=== PATIENT | female | born 1950 | race Caucasian/White ===

== ENCOUNTER 2018-12-09 11:48 | Outpatient (CLI) | payer MEDICARE ==
[2018-12-09 14:27] LABS: Estimated GFR-MDRD - POC Greater than 90
--- NOTE | 2018-12-09 15:39 | CT ---
CT ABDOMEN AND PELVIS WITH IV CONTRAST AND ORAL CONTRAST: HISTORY: Abdominal pain. Diverticulitis. FINDINGS: Lung bases are clear. Tiny cysts associated with the cortex of each kidney. No hydronephrosis or re nal stones are evident. Degenerative changes of the lumbar spine. Calcification in the arterial structures. No evidence of bowel obstruction or inflammation. Scattered diverticula arise from the colon without adjacent inflammation. Within the cecum is a small metallic object. Calcification below the bladde r may be related to prior surgery and calcification of the cervical remnant. IMPRESSION: 1. Diverticulosis. No evidence of diverticulitis. 2. Metallic object in the cecum (endoscopic camera?). 3. Atherosclerosis. POS: [facility]
== END 2018-12-09 11:49 | disposition home or self-care (01) ==
LOC: SCSCT 11:48
PROVIDERS: ATTEND Internal Medicine Gastroenterology
DX: R10.32 Left lower quadrant pain (principal); K57.92 Diverticulitis of intestine, part unspecified, without perforation or abscess without bleeding; D50.9 Iron deficiency anemia, unspecified; I70.90 Unspecified atherosclerosis; T18.4XXA Foreign body in colon, initial encounter
CPT/HCPCS: 74177; 82565

== ENCOUNTER 2018-12-12 16:49 | Outpatient (CLI) | payer MEDICARE ==
[2018-12-12 17:01] LABS: #Basophils 0.1 thou/uL (0.0-0.2); #Eosinphils 0.2 thou/uL (0.0-0.7); #Lymphocytes 1.7 thou/uL (1.20-3.40); #Monocytes 0.8 thou/uL (0.11-0.59); #Neutrophils 13.1 thou/uL (1.40-6.50); %Basophils 0.6 % (0.0-1.0); %Eosinophils 1.1 % (0.0-10.0); %Lymphocytes 10.8 % (21.0-51.0); %Monocytes 5.2 % (0.0-10.0); %Neutrophils 82.2 % (42.0-75.0); Hemoglobin 11.9 g/dL (12.0-16.0); Mean Corpuscular HGB CONC 31.5 g/dL (32.0-36.0); Mean Corpuscular Hemoglobin 28.3 pg (27.0-31.0); Mean Corpuscular Volume 89.9 fL (78.0-98.0); Platelet Count 410 thou/uL (130-400)
[2018-12-12 17:12] LABS: Anion Gap 13 mmol/L (10-20); BUN (Urea Nitrogen) 11 mg/dL (9.8-20.1); Calc. Creatinine Clearance 0 mL/min (70-130); Calcium 9.5 mg/dL (7.8-10.44); Carbon Dioxide 23 mmol/L (23-31); Chloride 109 mmol/L (98-107); Estimated GFR-MDRD 84; Glucose 114 mg/dL (80-115); Potassium 4.1 mmol/L (3.5-5.1); Sodium 141 mmol/L (136-145)
--- NOTE | 2018-12-12 17:50 | RAD ---
AP VIEW ABDOMEN: Date: 12/12/18 HISTORY: Radiopaque density within the colon. FINDINGS: AP view abdomen demonstrates a large amount of stool in the colon. The radiopaque density remains in the region of the cecum. No evidence of bowel obstruction or ileus seen. Dextroscoliosis seen L3 level. IMPRESSION: Large amount of stool remains in colon. Radiopaque camera seen in the region of the cecum. This is un changed since the previous exam from 12/09/18. POS: [facility]
[2018-12-12 18:32] LABS: Iron 59 ug/dL (50-170); Iron Binding Capacity, Total 336 mcg/dL (265-497)
== END 2018-12-12 16:50 | disposition home or self-care (01) ==
LOC: SCSRAD 16:49
PROVIDERS: ATTEND Internal Medicine Gastroenterology
DX: R93.5 Abnormal findings on diagnostic imaging of other abdominal regions, including retroperitoneum (principal); K57.92 Diverticulitis of intestine, part unspecified, without perforation or abscess without bleeding; R10.32 Left lower quadrant pain; D50.9 Iron deficiency anemia, unspecified; R19.5 Other fecal abnormalities
CPT/HCPCS: 36415; 74018; 80048; 82728; 83540; 83550; 85025; 87324; 87449; 87493

== ENCOUNTER 2018-12-16 07:46 | Outpatient (CLI) | payer MEDICARE ==
--- NOTE | 2018-12-16 09:30 | RAD ---
RADIOGRAPH ABDOMEN 1 VIEW: DATE: 12/16/2018. TIME: 8:06 a.m. HISTORY: A 68-year-old female with constipation. COMPARISON: 12/12/2018. FINDINGS: The bowel gas pattern is nonobstructive, with a large amount of gas scattered throughout nondilated s mall bowel loops and throughout nondilated colon, similar to prior study. The previously demonstrate d small, partially metallic, approximately 1 x 2 cm electronic device, was previously overlying the r ight side of the pelvic cavity. It is now more superior and midline in location, overlapping the L5- S1 junction. Again noted is the dextroscoliosis of the lumbar spine, associated with severe degenera tive disk disease in the mid and lower lumbar spine. IMPRESSION: 1. Interval movement of the swallowed small foreign body to a different position, now at midline. F rom this KUB alone, it cannot be determined whether this is in the small intestine or colon. However , based on the fact that it was in the cecum on the CT of 12/09/2018, it is unlikely that it has moved back into the small intestine. Therefore, perhaps it is in the sigmoid colon. A CT of the abdomen a nd pelvis would be definitive. 2. Lumbar spondylosis. POS: [facility]
== END 2018-12-16 07:47 | disposition home or self-care (01) ==
LOC: BICRAD 07:46
PROVIDERS: ATTEND Internal Medicine Gastroenterology
DX: K59.00 Constipation, unspecified (principal); T18.9XXA Foreign body of alimentary tract, part unspecified, initial encounter; M47.816 Spondylosis without myelopathy or radiculopathy, lumbar region
CPT/HCPCS: 74018

== ENCOUNTER 2018-12-22 15:11 | Observation (INO) | payer MEDICARE ==
[2018-12-22 16:28] LABS: #Eosinphils 0.1 thou/uL (0.0-0.7); #Lymphocytes 0.8 thou/uL (1.20-3.40); #Monocytes 0.7 thou/uL (0.11-0.59); #Neutrophils 10.2 thou/uL (1.40-6.50); %Basophils 0.2 % (0.0-1.0); %Eosinophils 0.5 % (0.0-10.0); %Lymphocytes 6.4 % (21.0-51.0); %Monocytes 5.8 % (0.0-10.0); %Neutrophils 87.2 % (42.0-75.0); Hemoglobin 12.4 g/dL (12.0-16.0); Mean Corpuscular HGB CONC 31.6 g/dL (32.0-36.0); Mean Corpuscular Hemoglobin 29.2 pg (27.0-31.0); Mean Corpuscular Volume 92.5 fL (78.0-98.0); Mean Platelet Volume 7.3 fL (7.4-10.4); Platelet Count 409 thou/uL (130-400); RBC Distribution Width 13.6 % (11.5-14.5); Red Blood Cell (RBC) Count 4.24 mill/uL (4.20-5.40); White Blood Cell (WBC) Count 11.8 thou/uL (4.8-10.8)
[2018-12-22] MEDS ORDERED: Morphine 4 MG/ML VIAL ONE ×2 (16:42→18:17)
[2018-12-22] MEDS ORDERED: Ondansetron PF 4 MG/2 ML Vial ONE (16:43)
[2018-12-22 16:47] LABS: ALT (SGPT) Less than 7 U/L (8-55); AST (SGOT) 15 U/L (5-34); Alkaline Phosphatase 98 U/L (40-150); Anion Gap 15 mmol/L (10-20); BUN (Urea Nitrogen) 14 mg/dL (9.8-20.1); Bilirubin, Total 0.4 mg/dL (0.2-1.2); Calc. Creatinine Clearance 0 mL/min (70-130); Calcium 9.5 mg/dL (7.8-10.44); Carbon Dioxide 23 mmol/L (23-31); Chloride 105 mmol/L (98-107); Estimated GFR-MDRD 86; Globulin 2.8 g/dL (2.4-3.5); Glucose 143 mg/dL (80-115); Lipase 9 U/L (8-78); Potassium 3.8 mmol/L (3.5-5.1); Protein, Total 6.8 g/dL (6.0-8.3); Sodium 139 mmol/L (136-145)
--- NOTE | 2018-12-22 17:59 | CT ---
LIMITED CT EXAMINATION: Date: HISTORY: Abdominal pain. Patient had a recent Gastrografin enema. FINDINGS: The optimization analyst film shows a large amount of dense Gastrografin throughout the colon. This was discussed wi amy Olsen. Decision was made to hold off on performing the CT until some of the Gastrografin had c leared. IMPRESSION: Large amount of dense Gastrografin within the colon. Exam was deferred until some of this cleared. POS: [facility]
[2018-12-22] MEDS ORDERED: Promethazine HCl 25 MG/ML VIAL ONE (18:17)
[2018-12-22] MEDS ORDERED: Ondansetron ODT 4 MG TAB PO PRN (22:10)
[2018-12-22] MEDS ORDERED: Ondansetron PF 4 MG/2 ML Vial IVP PRN (22:10)
[2018-12-22] MEDS ORDERED: Acetaminophen 325 MG TAB PO PRN (22:10)
[2018-12-22 22:11] VITALS: BMI 19.7
[2018-12-22] MEDS: Lactated Ringer's 1,000 ML IV SCH (22:40)
--- NOTE | 2018-12-23 00:49 | PDOC.FPRHP ---
- History of Present Illness Chief Complaint: abdominal pain History of Present Illness: 68 yo F with PMH hypothyroid, CAD, DM, chronic abdominal pain, nephrolithiasis, depression, cardiac ablation, chronic back pain presents with abdominal pain. GI is Dr. Green. Patient has long history of abdominal pain and GI issues that pt believes GI is due to constipation. Notes 1 year ago was initially evaluated after having significant decreased appetite, weight loss. Multiple studies, imaging has been done. Stool is typically "spaghetti" shaped. Patient had endoscopic camera placed 11/23 which has not passed. Patient gets significant pain and discomfort with bowel prep. Had colonoscopy this am, seems that ileocecal junction has stricture and scope unable to be advanced. Patient had a barium swallow afterward along with [address] Green's office. She had significant abdominal pain in ED, requiring 8mg morphine to control. She now says pain is now 1/10. Reports N/V during colonscopy and throughout day. ED doc said he spoke with Dr. Green who had no recommendations. 07/28/2018 patient was hospitalized at [facility] for 8 days for diverticulitis. After hospitalization patient developed and was treated for c diff. Takes tramadol prn back pain. ED Course: phenergan, zofran, 1L, 8 mg morphine total - Allergies/Adverse Reactions Allergies Allergy/AdvReac Type Severity Reaction Status Date / Time meperidine [From Demerol] Allergy Hives Verified 10/08/16 10:14 - Home Medications Medication Instructions Recorded Confirmed Type Acetaminophen/Diphenhydramine 2 each PO HS 10/08/16 12/22/18 History [Tylenol Pm Ex-Strength Caplet] Ascorbic Acid [C-1000] 1,000 mg PO DAILY 10/08/16 12/22/18 History Aspirin [Low Dose Aspirin EC] 81 mg PO HS 10/08/16 12/22/18 History Atorvastatin Calcium 20 mg PO HS 10/08/16 12/22/18 History Biotin 1 tab PO DAILY 10/08/16 12/22/18 History Estradiol [Vagifem] 10 mcg VAG ASDIR 10/08/16 12/22/18 History Levothyroxine Sodium [Synthroid] 75 mcg PO HS 10/08/16 12/22/18 History Metoprolol Succinate [Toprol XL] 25 mg PO HS 10/08/16 12/22/18 History Potassium Citrate [Potassium 10 meq PO BID 10/08/16 12/22/18 History Citrate ER] Ramipril 10 mg PO DAILY 10/08/16 12/22/18 History Vit A/Vit C/Vit E/Zinc/Copper 1 cap PO DAILY 10/08/16 12/22/18 History [ICaps AREDS Softgel] Vit C/Vit E AC/Lut/Copper/Zinc 1 each PO BID 10/08/16 12/22/18 History [Preservision Lutein Softgel] metFORMIN HCl 500 mg PO BID-WM 10/08/16 12/22/18 History sitaGLIPtin Phosphate [Januvia] 100 mg PO QAM 10/08/16 12/22/18 History traMADol HCl [Tramadol HCl] 100 mg PO DAILY 10/08/16 12/22/18 History tiZANidine HCl [Tizanidine HCl] 4 mg PO Q8H PRN #60 capsule 10/09/16 12/22/18 Rx Amlodipine [Norvasc] 5 mg PO HS 12/22/18 12/22/18 History Buprenorphine HCl [Belbuca] 75 film PO DAILY PRN 12/22/18 12/22/18 History DULoxetine [Cymbalta] 30 mg PO QAM 12/22/18 12/22/18 History Methenam/M.blue/Salicyl/Hyoscy 1 tablet PO BID 12/22/18 12/22/18 History [Hyophen] Saccharomyces boulardii [Florastor] 250 mg PO HS 12/22/18 12/22/18 History Zonisamide 50 cap PO BID 12/22/18 12/22/18 History - History PMHx: nephrolithiasis, depression, CAD, hypothyroid, DM, chronic back pain, HTN PSHx: laminectomy, cardiac ablation, thyroidectomy, tonsillectomy, bladder suspension with multiple sx to remove mesh, appendectomy, hysterectomy FHx: dad- lung cancer, stomach cancer, DM. Mother-DM. Social: No tobacco, alcohol, or drug use. Lives at home with . - Review of Systems General: denies: fever/chills, fatigue ENT: denies: nasal congestion, rhinorrhea Respiratory: denies: cough, shortness of breath Cardiovascular: denies: chest pain, palpitation, edema Gastrointestinal: reports: nausea, vomiting, diarrhea, abdominal pain. denies: GI bleeding Genitourinary: denies: incontinence, dysuria Skin: denies: rashes, lesions Musculoskeletal: reports: pain. denies: swelling Neurological: denies: numbness, syncope Psychological: reports: depression. denies: anxiety - Vital signs BP: 170/72 HR: 99 RR: 18 Tmax: 97.5 Pox: 99% on RA Wt: 52 kg - Physical Exam Constitutional: NAD, awake, alert and oriented HEENT: normocephalic and atraumatic, grossly normal vision, grossly normal hearing, other (MM dry) Heart: RRR, pulses present, no edema Lungs: CTAB, no respiratory distress Abdomen: soft, other (decreased bowel sounds, mildly TTP RLQ) Neurological: no focal deficit Skin: no rash/lesions Heme/Lymphatic: no unusual bruising or bleeding Psychiatric: normal mood and affect FMR H&P: Results - Labs Result Diagrams: 12/22/18 15:57 12/22/18 15:57 Lab results: WBC 11.8 thou/uL (4.8-10.8) H 12/22/18 15:57 Hgb 12.4 g/dL (12.0-16.0) 12/22/18 15:57 Hct 39.2 % (36.0-47.0) 12/22/18 15:57 MCV 92.5 fL (78.0-98.0) 12/22/18 15:57 Plt Count 409 thou/uL (130-400) H 12/22/18 15:57 Neutrophils % 87.2 % (42.0-75.0) H 12/22/18 15:57 Sodium 139 mmol/L (136-145) 12/22/18 15:57 Potassium 3.8 mmol/L (3.5-5.1) 12/22/18 15:57 Chloride 105 mmol/L (98-107) 12/22/18 15:57 Carbon Dioxide 23 mmol/L (23-31) 12/22/18 15:57 BUN 14 mg/dL (9.8-20.1) 12/22/18 15:57 Creatinine 0.68 mg/dL (0.6-1.1) 12/22/18 15:57 Glucose 143 mg/dL (80-115) H 12/22/18 15:57 Lactic Acid 1.1 mmol/L (0.5-2.2) 12/22/18 16:52 Calcium 9.5 mg/dL (7.8-10.44) 12/22/18 15:57 Total Bilirubin 0.4 mg/dL (0.2-1.2) 12/22/18 15:57 AST 15 U/L (5-34) 12/22/18 15:57 ALT Less than 7 U/L (8-55) L 12/22/18 15:57 Alkaline Phosphatase 98 U/L (40-150) 12/22/18 15:57 Serum Total Protein 6.8 g/dL (6.0-8.3) 12/22/18 15:57 Albumin 4.0 g/dL (3.4-4.8) 12/22/18 15:57 Lipase 9 U/L (8-78) 12/22/18 15:57 FMR H&P: A/P - Problem List (1) Intractable abdominal pain Current Visit: Yes Status: Acute Code(s): R10.9 - UNSPECIFIED ABDOMINAL PAIN (2) Mild dehydration Current Visit: Yes Status: Acute Code(s): E86.0 - DEHYDRATION (3) Diabetes Current Visit: Yes Status: Acute Code(s): E11.9 - TYPE 2 DIABETES MELLITUS WITHOUT COMPLICATIONS (4) CAD (coronary artery disease) Current Visit: Yes Status: Acute Code(s): I25.10 - ATHSCL HEART DISEASE OF [place] CORONARY ARTERY W/O ANG PCTRS (5) HTN (hypertension) Current Visit: Yes Status: Acute Code(s): I10 - ESSENTIAL (PRIMARY) HYPERTENSION (6) Hypothyroid Current Visit: Yes Status: Acute Code(s): E03.9 - HYPOTHYROIDISM, UNSPECIFIED (7) Depression Current Visit: Yes Status: Acute Code(s): F32.9 - MAJOR DEPRESSIVE DISORDER , SINGLE EPISODE, UNSPECIFIED - Plan Intractable abdominal pain - improved after 8mg morphine in ED, pain now well controlled, tylenol and zofran prn for now - WBC 11.8. Pain associated with bowel prep, colonoscopy, barium swallow and 2 enemas done today. - Having watery BMs now - endoscopic camera inserted 11/23 still has not passed - Dr. Green is GI doctor. Will discuss case in ED with them for further recommendations - recheck am labs - CL for now, NPO @ midnight Mild dehydration - decreased PO intake and bowel prep resulting in GI losses - s/p 1L in ED. Continue LR @ 90 maintenance T2DM - on metformin at home, pt unsure of dose - SSI, accuchecks for now CAD - pending med rec HTN - s/p ablation for elevated BP per patient - pending med rec Hypothyroid - pending med rec Depression - pending med rec Diet: CL, NPO @ midnight Ppx: Lovenox Dispo: admit to medical floor for observation FMR H&P: Upper Level - Pertinent history 68 yr old female with intractable abdominal pain according to ED physician. Had colonoscopy toay but unable to complete due to narrowing of colon but was not appreciated on barium enema. Patient report greater than 1 yr struggle with abdominal pain that is being worked up outpatient by Dr. Ana Green. Today after her colonooscoy, pain so severe she came to ER and got morphine which helped. At time of exam, patient's pain significantly improved. She reports stool caliber changes and pencil like stools. - Pertinent findings gen: no acute distress heart: RRR, 2/6 systolic murmur Lungs: CTAB, no W/R/R Abd: hypoactive BS, nontender to palpation no hepatosplenomegaly Ext: No edema in BLE - Plan Date/Time: 12/23/18 0049 I, [Nina Sidhu], have evaluated this patient and agree with findings/plan as outlined by video editing internship resident. Pertinent changes/additions are listed here. 68 yr old female with chronic abdominal pain intractable abdominal pain -improved with morphine -chronic and has been worked up outpatient -recommend touching base with Dr. Green in regards to what to do further -apparently still has a pill camera for over a month -normal barium enema today -consider completing CT in AM if still indicated mild dehydration -will give gentle IV fluids overnight -NPO at midnight HTN -home meds when obtained Hypothyroidism -home meds PCP: Dr. Cabrales in [place] diet: NPO after midnight
[2018-12-23] MEDS ORDERED: tiZANidine HCl 4 MG TAB PO PRN (01:57)
[2018-12-23] MEDS ORDERED: Levothyroxine Sodium 75 MCG TAB PO SCH (06:00)
--- NOTE | 2018-12-23 07:07 | PDOC.FM ---
- Subjective Subjective: Reports resolution of abdominal pain. Reports multiple episodes of incontinence to stool which is very atypical for her. Nausea is controlled with Zofran. No other questions or complaints this morning. Has appt with Dr Green next week. - Objective MAR Reviewed: Yes Vital Signs & Weight: Vital Signs (12 hours) Temp Pulse Resp BP Pulse Ox 12/23/18 04:00 97.9 F 75 16 143/65 H 98 12/23/18 00:00 97.8 F 82 16 116/62 95 Weight Weight 52.191 kg I&O: 12/22/18 12/23/18 12/24/18 06:59 06:59 06:59 Intake Total 691 Balance 691 Result Diagrams: 12/23/18 08:35 12/23/18 08:35 Phys Exam - Physical Examination Constitutional: NAD Dry MM Neck: supple Respiratory: no wheezing, clear to auscultation bilateral Cardiovascular: RRR 2/6 Systolic murmur Gastrointestinal: soft TTP RLQ Musculoskeletal: no edema Neurological: non-focal Psychiatric: normal affect, A&O x 3 Skin: normal turgor Dx/Plan (1) Intractable abdominal pain Code(s): R10.9 - UNSPECIFIED ABDOMINAL PAIN Status: Acute (2) Mild dehydration Code(s): E86.0 - DEHYDRATION Status: Acute (3) CAD (coronary artery disease) Code(s): I25.10 - ATHSCL HEART DISEASE OF [place] CORONARY ARTERY W/O ANG PCTRS Status: Chronic (4) Depression Code(s): F32.9 - MAJOR DEPRESSIVE DISORDER, SINGLE EPISODE, UNSPECIFIED Status : Chronic (5) Diabetes Code(s): E11.9 - TYPE 2 DIABETES MELLITUS WITHOUT COMPLICATIONS Status: Chronic (6) HTN (hypertension) Code(s): I10 - ESSENTIAL (PRIMARY) HYPERTENSION Status: Chronic (7) Hypothyroid Code(s): E03.9 - HYPOTHYROIDISM, UNSPECIFIED Status: Chronic - Plan Plan: Intractable abdominal pain, resolved - Initial leukocytosis 11.8. Sees Dr Green, GI outpt. Colonoscopy 12/21 unable to complete due to stricture, barium swallow no abnormalities. 2 enemas. Endoscopic camera 11/23 has not passed - KUB shows camera in right colon - s/p 8mg morphine in ED with improvement - Tylenol, zofran PRN - Spoke with Dr Green this AM, she has f/u with her in one week fo rKUB Diarrhea - likely 2/2 to Gastrograffin - Hx of Cdiff early Oct. C diff neg 2 week ago after course of antibiotics. - Will check C diff toxin, no PCR - Dr Green recommended Imodium for >4 loose BM's per day Mild dehydration - s/p 1L in ED - LR @ 90 - Encourage PO intake T2DM - Continue home metformin - Accuchecks ACHS - SSI and hypoglycemic protocol CAD - Continue home meds HTN - s/p ablation for elevated BP per patient - Continue home meds Hypothyroid - Continue home Synthroid Depression - Continue home meds Hx of Cdiff - As above Code Status: FULL DVT ppx: Lovenox PCP: Dr Cabrales Addendum - Attending - Attending Attestation Date/Time: 12/23/18 [id number] I personally evaluated the patient and discussed the management with Dr. Macario I agree with the History, Examination, Assessment and Plan documented above with any addition or exceptions noted below.Case discussed with patient established GI and appreciate recommendation.
[2018-12-23] MEDS ORDERED: metFORMIN 500 MG TAB PO SCH (08:00)
[2018-12-23] MEDS ORDERED: [UNRECOGNIZED DRUG - OTHER] PO SCH (09:00)
[2018-12-23] MEDS ORDERED: DULoxetine 30 MG CAP PO SCH (09:00)
[2018-12-23] MEDS ORDERED: Potassium Citrate 10 MEQ TAB PO SCH (09:00)
[2018-12-23] MEDS ORDERED: Zonisamide 25 MG CAP PO SCH (09:00)
[2018-12-23] MEDS ORDERED: traMADol HCl 50 MG TAB PO SCH (09:00)
[2018-12-23] MEDS ORDERED: Alogliptin 6.25 MG TAB PO SCH (09:00)
[2018-12-23] MEDS ORDERED: Enoxaparin Sodium 40 MG/0.4 ML SYRINGE SC SCH (09:00)
[2018-12-23] MEDS ORDERED: Ramipril 5 MG CAP PO SCH (09:00)
[2018-12-23] MEDS ORDERED: Ascorbic Acid 500 mg Chewable Tablet PO SCH (09:00)
[2018-12-23 09:14] LABS: #Basophils 0.1 thou/uL (0.0-0.2); #Eosinphils 0.2 thou/uL (0.0-0.7); #Lymphocytes 1.1 thou/uL (1.20-3.40); #Monocytes 0.6 thou/uL (0.11-0.59); #Neutrophils 4.7 thou/uL (1.40-6.50); %Basophils 0.8 % (0.0-1.0); %Eosinophils 2.3 % (0.0-10.0); %Lymphocytes 16.8 % (21.0-51.0); %Monocytes 9.5 % (0.0-10.0); %Neutrophils 70.6 % (42.0-75.0); Mean Corpuscular HGB CONC 32.1 g/dL (32.0-36.0); Mean Corpuscular Hemoglobin 29.5 pg (27.0-31.0); Mean Corpuscular Volume 92.2 fL (78.0-98.0); Mean Platelet Volume 7.3 fL (7.4-10.4); Platelet Count 307 thou/uL (130-400); RBC Distribution Width 13.6 % (11.5-14.5); Red Blood Cell (RBC) Count 3.39 mill/uL (4.20-5.40); White Blood Cell (WBC) Count 6.7 thou/uL (4.8-10.8)
[2018-12-23 09:20] LABS: Anion Gap 12 mmol/L (10-20); BUN (Urea Nitrogen) 13 mg/dL (9.8-20.1); Calc. Creatinine Clearance 73 mL/min (70-130); Calcium 8.6 mg/dL (7.8-10.44); Carbon Dioxide 25 mmol/L (23-31); Chloride 110 mmol/L (98-107); Estimated GFR-MDRD Greater than 90; Glucose 102 mg/dL (80-115); Potassium 3.5 mmol/L (3.5-5.1); Sodium 143 mmol/L (136-145)
[2018-12-23] MEDS: Lactated Ringer's 1,000 ML IV SCH (09:22)
[2018-12-23 11:49] VITALS: BP 135/70; TEMP 98.2
[2018-12-23] MEDS ORDERED: Loperamide HCl 2 MG CAP PO SCH (13:30)
[2018-12-23] MEDS ORDERED: Lactated Ringer's 500 ML IV SCH (13:45)
[2018-12-23] MEDS ORDERED: Saccharomyces boulardii 250 MG CAP PO SCH (21:00)
[2018-12-23] MEDS ORDERED: Aspirin 81 mg Enteric Coated Tablet PO SCH (21:00)
[2018-12-23] MEDS ORDERED: Acetaminophen 500 MG TAB PO SCH ×2 (21:00)
[2018-12-23] MEDS ORDERED: diphenhydrAMINE 25 MG CAP PO SCH (21:00)
[2018-12-23] MEDS ORDERED: Atorvastatin Calcium 20 MG TAB PO SCH (21:00)
[2018-12-23] MEDS ORDERED: Amlodipine 5 MG TAB PO SCH (21:00)
--- NOTE | 2018-12-27 09:20 | DIS ---
DATE OF ADMISSION: 12/22/2018 DATE OF DISCHARGE: 12/23/2018 RESIDENT: Kaley Macario MD, PGY-1. ADMITTING ATTENDING: Manny Cardoso MD DISCHARGE ATTENDING: Manny Cardoso MD CONSULTS: None. PROCEDURES: Limited followup study CT, large amount of dense Gastrografin within the colon, exam was deferred until some of this was cleared. The exam was ultimately canceled. PRIMARY DIAGNOSES: 1. Intractable abdominal pain, resolved. 2. Diarrhea. SECONDARY DIAGNOSES: 1. Mild dehydration. 2. Type 2 diabetes. 3. Coronary artery disease. 4. Hypertension. 5. Hypothyroidism. 6. Depression. 7. History of Clostridium difficile. DISCHARGE MEDICATIONS: 1. Amlodipine 5 mg at bedtime. 2. Ascorbic acid 1000 mg daily. 3. Aspirin 81 mg at bedtime. 4. Atorvastatin 20 mg at bedtime. 5. Duloxetine 30 mg q.a.m. 6. Levothyroxine 75 mcg at bedtime. 7. Metformin 500 mg b.i.d. 8. Hyophen 1 tablet b.i.d. 9. Metoprolol succinate 25 mg at bedtime. 10. Zofran 4 mg q.6 hours p.r.n. 11. Potassium citrate 10 mEq b.i.d. 12. Ramipril 10 mg daily. 13. Florastor 250 mg at bedtime. 14. Januvia 100 mg q.a.m. 15. Tizanidine 4 mg q.8 hours p.r.n. 16. Tramadol 100 mg daily. 17. Zonisamide 50 mg b.i.d. 18. Biotin 1 tab daily. 19. Belbuca 75 mcg daily. 20. Estradiol 10 mcg daily. 21. Multivitamin one b.i.d. DISCONTINUED MEDICATIONS: None. HISTORY OF PRESENT ILLNESS/HOSPITAL COURSE: Ms. Shen is a very pleasant 68-year-old female, who presented with intractable abdominal pain. She has had a long history of chronic abdominal pain that Dr. Green, creative technologist, has been following her as she has a history of decreased appetite, weight loss, ( spaghetti) shaped stools, multiple studies have been done. Last month, she had an EGD as well as having an endoscopic camera capsule placed on November 23. She has not yet had passage of the capsule, it was seen on x-ray by her GI doctor. Therefore, her bowel prep and colonoscopy was performed yesterday that showed ileocecal junction stricture and the scope was then able to be advanced to gain access to the capsule. Afterwards, the patient was given a Gastrografin barium swallow in hopes that the diarrhea would wash out the capsule, as well as two enemas. She, in the ED, received 1 L lactated Ringer's, Phenergan, Zofran, and 8 mg of morphine. Her pain was well controlled afterwards. Dr. Green was notified in the morning of discharge and recommended Imodium p.r.n. for greater than 4 loose stools a day, bland diet, and dilated Gatorade, as well as prescription for home Zofran. She is scheduled in clinic next week to get a KUB to evaluate where the camera is at that point. The patient does have a history of C diff in the beginning of October 2018. The patient reports that she had antibiotics, finished the course 2 weeks ago. At that time, she had C diff study that showed that she was negative for acute C diff, but did have a history of it. Her stools were solid prior to bowel prep for colonoscopy yesterday. Her stools were followed prior to bowel prep for colonoscopy, the day prior to admission. C diff toxin was obtained to rule out active C diff, although this is very unlikely. This is why Imodium was recommended by Dr. Green, because Gastrografin is the most likely source of her diarrhea. She is otherwise hemodynamically stable. Mild dehydration. She received 1 L of normal saline in the ED and LR was continued maintenance overnight. She was encouraged to drink large amount of fluids including diluted Gatorade for her ongoing GI losses. Her chronic medical conditions of type 2 diabetes, CAD, hypertension, hypothyroidism and depression were stable on her home medications. DISPOSITION: Stable. DISCHARGE INSTRUCTIONS: 1. Location: Home. 2. Diet: Consistent carbohydrate. 3. Activity: No Restrictions 4. Follow up with Dr Cabrales within 1 week Job ID: [id number] MTDD
== END 2018-12-23 16:04 | disposition home or self-care (01) ==
LOC: ERS 15:11 → T4-B 18:06
PROVIDERS: ADMIT Family Medicine; ATTEND Family Medicine
DX: R10.9 Unspecified abdominal pain (principal); R19.7 Diarrhea, unspecified; E86.0 Dehydration; E11.9 Type 2 diabetes mellitus without complications; I25.10 Atherosclerotic heart disease of native coronary artery without angina pectoris; I10 Essential (primary) hypertension; F32.9 Major depressive disorder, single episode, unspecified; G89.29 Other chronic pain; M54.9 Dorsalgia, unspecified; K56.609 Unspecified intestinal obstruction, unspecified as to partial versus complete obstruction; E03.9 Hypothyroidism, unspecified; Z79.82 Long term (current) use of aspirin; Z79.84 Long term (current) use of oral hypoglycemic drugs; Z79.899 Other long term (current) drug therapy; Z98.890 Other specified postprocedural states; Z88.5 Allergy status to narcotic agent
CPT/HCPCS: 74270; 76380; 80048; 80053; 82962 ×2; 83605; 83690; 85025 ×2; 87324; 87449; 96361 ×3; 96365; 96372; 96375; 96376; 99285; G0378 ×2; 36415; 36416; J1650; J2270; J2405; J2550

== ENCOUNTER 2018-12-29 08:14 | Outpatient (CLI) | payer MEDICARE ==
--- NOTE | 2018-12-29 09:18 | RAD ---
FRONTAL VIEW ABDOMEN: KUB: INDICATIONS: Foreign body of colon. Followup. FINDINGS: There is an abnormal radiopaque density projecting at the left lower quadrant. Enteric contrast is s een within bowel. IMPRESSION: Persistent radiopaque density, which projects at the left lower quadrant. POS: [facility]
== END 2018-12-29 08:15 | disposition home or self-care (01) ==
LOC: BICRAD 08:14
PROVIDERS: ATTEND Internal Medicine Gastroenterology
DX: T14.8XXD Other injury of unspecified body region, subsequent encounter (principal)
CPT/HCPCS: 74018

== ENCOUNTER 2019-01-06 09:23 | Outpatient (CLI) | payer MEDICARE ==
--- NOTE | 2019-01-06 11:12 | RAD ---
ABDOMEN 1 VIEW: HISTORY: Foreign body. COMPARISON: Radiograph of 12/29/2018. FINDINGS: The radiopaque foreign object now projects over the right lower hemipelvis. Moderate degenerative ch anges of the lumbar spine with moderate dextroscoliosis. IMPRESSION: Radiopaque foreign object projects over the right lower hemipelvis. POS: [facility]
== END 2019-01-06 09:24 | disposition home or self-care (01) ==
LOC: BICRAD 09:23
PROVIDERS: ATTEND Physician Assistant Medical
DX: T18.4XXS Foreign body in colon, sequela (principal); R10.84 Generalized abdominal pain; A04.72 Enterocolitis due to Clostridium difficile, not specified as recurrent
CPT/HCPCS: 74018

== ENCOUNTER 2019-01-29 15:58 | Inpatient (IN) | payer MEDICARE ==
[~2019-01-29 15:58] MED LIST: ISOVUE-370 76%-LOCM 1 ML ONE
[2019-01-29] MEDS ORDERED: Morphine 4 MG/ML VIAL ONE ×2 (16:35→18:44)
[2019-01-29] MEDS ORDERED: Ondansetron PF 4 MG/2 ML Vial ONE ×2 (16:35→18:30)
[2019-01-29 17:03] LABS: #Basophils 0.1 thou/uL (0.0-0.2); #Eosinphils 0.1 thou/uL (0.0-0.7); #Lymphocytes 1.4 thou/uL (1.20-3.40); #Monocytes 0.7 thou/uL (0.11-0.59); #Neutrophils 9.3 thou/uL (1.40-6.50); %Basophils 0.8 % (0.0-1.0); %Eosinophils 1.1 % (0.0-10.0); %Lymphocytes 11.8 % (21.0-51.0); %Monocytes 6.4 % (0.0-10.0); Hemoglobin 12.6 g/dL (12.0-16.0); Mean Corpuscular HGB CONC 31.9 g/dL (32.0-36.0); Mean Corpuscular Hemoglobin 29.3 pg (27.0-31.0); Mean Corpuscular Volume 91.8 fL (78.0-98.0); Mean Platelet Volume 7.4 fL (7.4-10.4); Platelet Count 395 thou/uL (130-400); RBC Distribution Width 13.6 % (11.5-14.5); White Blood Cell (WBC) Count 11.6 thou/uL (4.8-10.8)
[2019-01-29 17:20] LABS: ALT (SGPT) 9 U/L (8-55); AST (SGOT) 17 U/L (5-34); Albumin 4.1 g/dL (3.4-4.8); Alkaline Phosphatase 109 U/L (40-150); Anion Gap 14 mmol/L (10-20); BUN (Urea Nitrogen) 11 mg/dL (9.8-20.1); Bilirubin, Total 0.5 mg/dL (0.2-1.2); Calc. Creatinine Clearance 0 mL/min (70-130); Calcium 9.8 mg/dL (7.8-10.44); Carbon Dioxide 26 mmol/L (23-31); Chloride 104 mmol/L (98-107); Estimated GFR-MDRD Greater than 90; Globulin 3.1 g/dL (2.4-3.5); Glucose 125 mg/dL (80-115); Lipase 8 U/L (8-78); Potassium 3.9 mmol/L (3.5-5.1); Protein, Total 7.2 g/dL (6.0-8.3); Sodium 140 mmol/L (136-145)
--- NOTE | 2019-01-29 18:21 | CT ---
CT ABDOMEN AND PELVIS WITH CONTRAST: 01/29/2019 HISTORY: Bowel distention and pain. Assess for bowel obstruction. COMPARISON: 12/09/2018 TECHNIQUE: Axial CT imaging is obtained at 5 mm intervals, from the lung bases through the pubic symphysis, with intravenous contrast. Coronal reformatted imaging obtained. FINDINGS: The lack of oral contrast media limits assessment of the bowel. The imaged lung bases are unremarkab le, with no free intraperitoneal air noted. The liver, gallbladder, spleen, pancreas, adrenal glands, and kidneys demonstrate no acute findings. Focal areas of cortical thinning are noted within the upper pole of the right kidney, suggesting sca r, stable. A metallic structure with associated streak artifact is noted within the distal descending colon, bes t seen on axial image 44, suggesting an ingested capsule. There are postoperative clips posterior to the pubic symphysis. There is curvilinear calcific density, measuring up to 1.2 cm posterior to the pubic symphysis, sugge sting calcification within a prominent stable urethral diverticulum. There is small volume free fluid noted in the pelvic cul-de-sac/presacral space, new. There is fairl y large volume, dense stool seen throughout the colon. At the level of the proximal/mid descending c olon, there is colonic wall thickening, as well as pericolonic fat stranding. This involves a segmen t of the descending colon, just distal to the splenic flexure, measuring approximately 10-12 cm in le ngth, evidence of colitis. There is gas within diverticula in this region. No convincing evidence f or extraluminal gas. No evidence for small bowel obstruction is seen. Small sliding type hiatal her minerva is noted. There is atherosclerotic calcification of the abdominal aorta and its branches, of mild to moderate s everity, stable. No lymphadenopathy within the abdomen or pelvis is noted. There is prominent degen erative change of the lumbar spine with multilevel disk space narrowing and degenerative endplate petty nge, as well as vacuum disk formation. no acute osseous abnormality is evident. IMPRESSION: 1. Proximal and mid descending colonic wall thickening and pericolonic fat stranding with large volu me stool throughout the colon. Findings suggest colitis, likely on the basis of stercoral colitis. No evidence for bowel obstruction. 2. Findings suggesting an ingested metallic foreign body, such as a capsule, within the distal desce nding colon. 3. Small volume free fluid within the pelvic cul-de-sac, likely related to the above described desce nding colitis. 4. Findings suggesting dense material/calcification within a urethral diverticulum. POS: [facility]
[2019-01-29 18:51] LABS: Bilirubin Negative (Negative); Blood, Urine Negative (Negative); Clarity CLEAR (Clear); Glucose, Urine (Dipstick) Negative (Negative); Leukocyte Small (Negative); Nitrite Negative (Negative); Protein, Urine (Dipstick) Negative (Neg-Trace); Urobilinogen 0.2 mg/dL (0.2-1.0); pH, Urine 5.5 (5.0-9.0)
[2019-01-29 18:53] LABS: Bacteria/HPF None Seen HPF (None Seen); Hyaline Casts/LPF 4-6 HYALINE CAST LPF (0-3 Hyaline); Pathc Cast-AUWi Flag 0.54 (0-2.49); Squamous Epithelial 0-3 HPF (0-3)
[2019-01-29 18:57] LABS: Specific Gravity, Urine 1.057 (1.002-1.036)
[2019-01-29] MEDS ORDERED: Dextrose 5% in Water 1,000 ML IV PRN (20:31)
[2019-01-29] MEDS ORDERED: Dextrose 50% Abboject 50 ML SYRINGE SLOW IVP PRN (20:31)
[2019-01-29] MEDS ORDERED: HumaLOG 300 UNITS/3 ML VIAL SC PRN ×2 (20:31)
[2019-01-29] MEDS ORDERED: Mineral Oil ENEMA PR SCH (20:45)
--- NOTE | 2019-01-29 21:02 | HP ---
CHIEF COMPLAINT: Abdominal pain and constipation. HISTORY OF PRESENT ILLNESS: This is a 68-year-old female with past medical history of C. diff, recently being treated, has 4 days more left of her treatment plan for C. diff. With clostridium difficile, she was complaining of abdominal pain. States the pain started approximately 3 days ago. The patient states that initially post discharge from the hospital, she was having improvement. However, 3 days ago, she started having colicky pain in left lower quadrant to the left flank. Denies any nausea, vomiting, diarrhea, chest pain, fevers, or shortness of breath. Does admit to constipation and abdominal pain. The patient states that she has had a discussion with Dr. Hogue, outpatient GI doctor as well as Dr. Green, who was her outpatient GI doctor as well, and was advised to come to the ER. The patient apparently had a capsule endoscopy 6 weeks ago, and the capsule still has not made its way out of her bowel tract. The patient otherwise admits to hypertension, diabetes mellitus, and hyperlipidemia. Denies any other complaints. No other medical associated issues. No alleviating or aggravating factors. The patient states the pain is 7/10. However, when someone pushes on it, it gets to almost 10/10. The patient is seen and examined in the ER. All questions answered. Family at bedside. ALLERGIES: MEPERIDINE, SHE IS NOT AWARE WHAT HAPPENS WHEN SHE GETS MEPERIDINE. PAST MEDICAL HISTORY: Hypertension, hyperlipidemia, diabetes mellitus, and C. diff. SOCIAL HISTORY: Nonsmoker and nondrinker. FAMILY HISTORY: Unknown. HOME MEDICATIONS: Please see MAR. REVIEW OF SYSTEMS: All systems reviewed, pertinent positive in HPI, otherwise negative. PHYSICAL EXAMINATION: VITAL SIGNS: Blood pressure is 154/88, heart rate of 78, temperature of 98, and O2 saturation 100% on room air. GENERAL: Lying in bed, in no acute discomfort. HEENT: Pupils are equal, round, and reactive to light and accommodation. Oral cavity moist and pink. Extraocular muscles intact. Culture on the left upper lip. NECK: Supple. Nontender. Thyroid appreciated. PULMONARY: Regular respiratory rate. No increase in AP diameter. No rales, rhonchi, or wheezing appreciated. CARDIOVASCULAR: S1 and S2. No murmurs, rubs, or gallops appreciated. GI: Abdominal exam, positive bowel sounds. Soft and tender to palpation on left lower quadrant as well as left flank. No rash noted. EXTREMITIES: 2+ peripheral pulses. No cyanosis, clubbing, or edema. NEUROLOGIC: Cranial nerves 2 through 12 intact. No loss of motor or sensory function. LABORATORY DATA: CBC reviewed. BMP reviewed. CT scan reviewed. ASSESSMENT: 1. Constipation. 2. Colitis. 3. History of Clostridium difficile. 4. Hypertension. 5. Diabetes mellitus type 2. 6. Hyperlipidemia. PLAN: At this point in time, we will place the patient in the inpatient service, get started with IV Zosyn. We will give Fleet Enema. We will consult GI. Hold IV fluids given high blood pressure. Repeat labs in a.m. Cultures ordered and pending. The patient wishes to remain a full code. Case and plan discussed with the patient's and the patient at length. They understand and agree with this plan. Job ID: [id number]
[2019-01-29 21:41] VITALS: BMI 19.5
--- NOTE | 2019-01-29 22:08 | PDOC.EVN ---
Event Note - Event Note Event Note: H&P [id number]
[2019-01-29] MEDS: Piperacillin/Tazobactam 3.375 GM in Sodium Chloride 0.9% 100 ML IVPB SCH (23:29)
[2019-01-29] MEDS: Acetaminophen 325 MG TAB PO PRN (23:30)
[2019-01-30] MEDS: Acetaminophen 325 MG TAB PO PRN (03:56)
[2019-01-30] MEDS: Piperacillin/Tazobactam 3.375 GM in Sodium Chloride 0.9% 100 ML IVPB SCH ×4 (05:10→23:23)
[2019-01-30 06:29] LABS: #Basophils 0.1 thou/uL (0.0-0.2); #Eosinphils 0.2 thou/uL (0.0-0.7); #Lymphocytes 1.5 thou/uL (1.20-3.40); #Monocytes 1.1 thou/uL (0.11-0.59); #Neutrophils 10.1 thou/uL (1.40-6.50); %Basophils 0.5 % (0.0-1.0); %Eosinophils 1.8 % (0.0-10.0); %Lymphocytes 11.2 % (21.0-51.0); %Monocytes 8.7 % (0.0-10.0); %Neutrophils 77.7 % (42.0-75.0); Hemoglobin 11.4 g/dL (12.0-16.0); Mean Corpuscular HGB CONC 31.4 g/dL (32.0-36.0); Mean Corpuscular Hemoglobin 29.2 pg (27.0-31.0); Mean Corpuscular Volume 93.1 fL (78.0-98.0); Mean Platelet Volume 7.7 fL (7.4-10.4); Platelet Count 368 thou/uL (130-400); RBC Distribution Width 13.5 % (11.5-14.5); Red Blood Cell (RBC) Count 3.91 mill/uL (4.20-5.40); White Blood Cell (WBC) Count 12.9 thou/uL (4.8-10.8)
[2019-01-30 06:52] LABS: Anion Gap 12 mmol/L (10-20); BUN (Urea Nitrogen) 11 mg/dL (9.8-20.1); Calc. Creatinine Clearance 70 mL/min (70-130); Calcium 9.2 mg/dL (7.8-10.44); Carbon Dioxide 26 mmol/L (23-31); Chloride 106 mmol/L (98-107); Estimated GFR-MDRD Greater than 90; Glucose 121 mg/dL (80-115); Potassium 3.7 mmol/L (3.5-5.1); Sodium 140 mmol/L (136-145)
[2019-01-30] MEDS: Ondansetron PF 4 MG/2 ML Vial IVP PRN ×2 (09:01→23:23)
[2019-01-30] MEDS: Sodium Chloride 0.9% 1,000 ML IV SCH (11:27)
[2019-01-30] MEDS: Ketorolac Tromethamine 30 MG/ML VIAL IVP PRN (11:36)
[2019-01-30] MEDS: Morphine 2 MG/ML SYRINGE SLOW IVP PRN (14:57)
[2019-01-30] MEDS ORDERED: Fentanyl 100 MCG/2 ML VIAL SLOW IVP SCH (15:45)
--- NOTE | 2019-01-30 15:47 | PDOC.PN ---
- Subjective Encounter Start Date: 01/30/19 Encounter Start Time: 10:00 Pt seen for followup re: abdominal pain. Reports minimal relief with pain medications. - Objective Resuscitation Status - Order Detail: 01/29/19 20:26 Resuscitation Status Routine Resuscitation Status: FULL: Full Resuscitation Discussed with: patient and MAR Reviewed: Yes Vital Signs & Weight: Vital Signs (12 hours) Temp Pulse Resp BP Pulse Ox 01/30/19 11:00 98.9 F 80 18 165/73 H 98 01/30/19 08:00 97 01/30/19 07:50 98.4 F 69 20 138/60 97 01/30/19 04:35 98.6 F 66 20 136/70 97 Weight Admit Weight 114 lb 2 oz Weight 114 lb 2 oz I&O: 01/29/19 01/30/19 01/31/19 06:59 06:59 06:59 Intake Total 320 180 Balance 320 180 Result Diagrams: 01/30/19 05:35 01/30/19 05:34 Additional Labs: Accuchecks 01/30/19 01/30/19 01/29/19 11:19 05:41 21:57 POC Glucose 120 H 112 H 99 Labs reviewed by me Phys Exam - Physical Examination Constitutional: NAD HEENT: moist MMs, sclera anicteric, oral pharynx no lesions, 2+ tonsils Neck: no nodes, no JVD, supple, full ROM Respiratory: clear to auscultation bilateral Cardiovascular: RRR, no rub S1, S2 Mild diffuse tenderness, no guarding or rigidity Neurological: moves all 4 limbs Psychiatric: normal affect, A&O x 3 Dx/Plan (1) Intractable abdominal pain Code(s): R10.9 - UNSPECIFIED ABDOMINAL PAIN Status: Acute Comment: etiology unclear, trialing pain meds. Await GI consult. (2) CAD (coronary artery disease) Code(s): I25.10 - ATHSCL HEART DISEASE OF [place] CORONARY ARTERY W/O ANG PCTRS Status: Chronic Comment: stable (3) Depression Code(s): F32.9 - MAJOR DEPRESSIVE DISORDER, SINGLE EPISODE, UNSPECIFIED Status : Chronic Comment: moderate, stable (4) Diabetes Code(s): E11.9 - TYPE 2 DIABETES MELLITUS WITHOUT COMPLICATIONS Status: Chronic Comment: controlled (5) HTN (hypertension) Code(s): I10 - ESSENTIAL (PRIMARY) HYPERTENSION Status: Chronic Comment: monitor vital signs, titrate antihypertensives as needed (6) Hypothyroid Code(s): E03.9 - HYPOTHYROIDISM, UNSPECIFIED Status: Chronic Comment: stable - Plan * . Review of Systems - Review of Systems Constitutional: negative: fever, chills, sweats, weakness, malaise Cardiovascular: negative: chest pain, palpitations, orthopnea, paroxysmal nocturnal dyspnea, edema, light headedness Gastrointestinal: Nausea, Abdominal Pain. negative: Vomiting, Diarrhea, Constipation, Melena, Hematochezia Genitourinary: negative: Dysuria, Frequency, Incontinence, Hematuria, Retention Skin: negative: Rash, Lesions, Shlomo, Bruising - Medications/Allergies Allergies/Adverse Reactions: Allergies Allergy/AdvReac Type Severity Reaction Status Date / Time meperidine [From Demerol] Allergy Hives Verified 01/29/19 21:40 Medications: Current Medications Acetaminophen (Tylenol) 650 mg PO Q4H PRN PRN Reason: Headache/Fever/Mild Pain (1-3) Last Admin: 01/30/19 03:56 Dose: 650 mg Dextrose/Water (Dextrose 50%) 25 gm SLOW IVP PRN PRN PRN Reason: Hypoglycemia Fentanyl (Sublimaze) 12.5 mcg SLOW IVP NOW [facility] Stop: 01/30/19 17:45 Glucagon (Glucagon) 1 mg IM PRN PRN PRN Reason: Hypoglycemia Piperacillin Sod/Tazobactam (Sod 3.375 gm/ Sodium Chloride) 100 mls @ 200 mls/ hr IVPB Q6HR [facility] Last Admin: 01/30/19 11:35 Dose: 100 mls Dextrose/Water (D5w) 1,000 mls @ 0 mls/hr IV .Q0M PRN PRN Reason: Hypoglycemia Sodium Chloride (Normal Saline 0.9%) 1,000 mls @ 50 mls/hr IV .Q20H [facility] Last Admin: 01/30/19 11:27 Dose: 1,000 mls Insulin Human Lispro (Humalog) 0 units SC .MILD SLIDING SCALE PRN PRN Reason: Mild Correctional Scale Insulin Human Lispro (Humalog) 0 units SC .BEDTIME SLIDING SC PRN PRN Reason: Bedtime Correctional Scale Ketorolac Tromethamine (Toradol) 15 mg IVP Q6H PRN PRN Reason: Pain Stop: 02/04/19 10:20 Last Admin: 01/30/19 11:36 Dose: 15 mg Morphine Sulfate (Morphine) 2 mg SLOW IVP Q4H PRN PRN Reason: Pain Last Admin: 01/30/19 14:57 Dose: 2 mg Ondansetron HCl (Zofran) 4 mg IVP Q6H PRN PRN Reason: Nausea/Vomiting Last Admin: 01/30/19 09:01 Dose: 4 mg Sodium Chloride (Flush - Normal Saline) 10 ml IVF Q12HR [facility] Last Admin: 01/30/19 11:37 Dose: 10 ml Sodium Chloride (Flush - Normal Saline) 10 ml IVF PRN PRN PRN Reason: Saline Flush Zolpidem Tartrate (Ambien) 5 mg PO HSPRN PRN PRN Reason: Insomnia
[2019-01-30] MEDS: Lidocaine 5% Patch TD SCH (17:42)
[2019-01-30] MEDS: Polyethylene Glycol 3350 17 GM Packet PO SCH (19:58)
[2019-01-30] MEDS ORDERED: Fleet Enema 133 ML BOT PR SCH (23:45)
[2019-01-31] MEDS: Zolpidem Tartrate 5 MG TAB PO PRN (00:53)
[2019-01-31] MEDS: Ketorolac Tromethamine 30 MG/ML VIAL IVP PRN (03:20)
[2019-01-31] MEDS: Lidocaine Patch Removal TOP SCH (03:32)
--- NOTE | 2019-01-31 03:48 | CON ---
DATE OF CONSULTATION: 01/30/2019 REASON FOR CONSULTATION: Abdominal pain, nausea, vomiting, and constipation. CONSULTING PHYSICIAN: Raj Rogers DO. HISTORY OF PRESENT ILLNESS: The patient is a 68-year-old female with past medical history of atrial fibrillation/atrial flutter, status post ablation, GERD, nephrolithiasis, diabetes, hyperlipidemia, hypertension, and hypothyroidism, presenting with complaints of abdominal pain, nausea, and vomiting. She states that she was recently diagnosed with C diff colitis and had 4 more days left on her treatment plan for this particular condition when she began to experience increased abdominal pain associated with nausea and vomiting. The abdominal pain was located primarily in the periumbilical region and characterized as a shooting type pain, shooting from the right to the left abdomen. The pain was also characterized as constant with waxing and waning severity, and would reach a severity of 10/10. The pain was worse with increased physical activity and better with lying still and pain medications on this admission, in association with the abdominal pain, she has noticed that within the last 2 to 3 days, she has been passing more mucoid type stools with minimal amounts of liquid stool. With this abdominal pain, it was associated with increased anorexia as well as increased nausea with vomiting x1 with nonbloody emesis. Otherwise, the patient denies any fevers, chills, shortness of breath, GI bleeding, dysphagia, odynophagia(of note, the patient was being worked up as an outpatient for iron deficiency anemia and had an EGD and colonoscopy performed in November 2017 which had relatively normal findings). The colonoscopy at that time showed a suboptimal prep, but only showed sigmoid diverticulosis. As part of this workup for iron deficiency anemia, she underwent a capsule endoscopy on November 23, 2018, with negative findings. Although, a large amount of bile was seen during the examination limiting the visualization somewhat. Upon completion of the capsule endoscopy, she did not pass the capsule with recommendations from the GI service for watchful waiting given the fact that it was located primarily within the cecum/right colon. REVIEW OF SYSTEMS: A 10-category review of systems was obtained with all responses negative except for pertinent positives as listed in the HPI. PAST MEDICAL HISTORY: As per HPI. PAST SURGICAL HISTORY: Back surgery, laminectomy, bladder suspension, lithotripsy, appendectomy, hysterectomy, thyroidectomy, and tonsillectomy. SOCIAL HISTORY: Denies any tobacco, alcohol, or illicit drug use. FAMILY HISTORY: Denies any GI malignancies. OUTPATIENT MEDICATIONS: Reviewed. ALLERGIES: MEPERIDINE. PHYSICAL EXAMINATION: VITAL SIGNS: Temperature 99.3, pulse 89, blood pressure 179/70, respiratory rate 20, saturating 96% on room air. GENERAL: The patient was lying in bed, in mild distress, alert and oriented x4. HEENT: Normocephalic, atraumatic. NECK: Supple. No JVD or scleral icterus noted. CARDIOVASCULAR: Regular rate and rhythm with no discernible murmurs, gallops, or rubs. RESPIRATORY: Clear to auscultation bilaterally with no discernible wheezes or rales. ABDOMEN: Hypoactive bowel sounds. Soft. Mild abdominal distention. Significant tenderness to palpation in all abdominal quadrants. EXTREMITIES: No cyanosis, clubbing, or edema. LABORATORY DATA: CBC with white blood cell count of 12.9, hemoglobin 11.4, hematocrit 36.4, platelets 368. Chemistry with sodium of 140, potassium 3.7, chloride 106, CO2 of 26, BUN 11, creatinine 0.61, glucose 121, AST 17, ALT 9, alkaline phosphatase 109, total bilirubin 0.5. IMAGING DATA: CT of the abdomen and pelvis obtained on January 29, 2019, showed a metallic density in the distal descending colon suggesting an endoscopic capsule, prominent stable urethral diverticulum was also seen, fairly dense stool was seen throughout the entire colon with colonic wall thickening in the descending colon consistent with colitis. ASSESSMENT AND PLAN: The patient is a 68-year-old female with past medical history of atrial fibrillation/atrial flutter/status post ablation, gastroesophageal reflux disease, nephrolithiasis, diabetes, hyperlipidemia, hypertension, hypothyroidism, and more recently Clostridium difficile infection, presenting with constipation and imaging consistent with possible stercoral colitis. Constipation/stercoral colitis: The patient is presenting with a recent history of Clostridium difficile that was associated with increased diarrhea. However, over the last week, she has been having significant constipation with having a bowel movement approximately every 1 to 2 days that was hard and harder to pass. Over the last 48 to 72 hours, she has been having increasing periumbilical abdominal pain associated with this constipation which further prompted her to seek healthcare admission. Upon further questioning the patient, she is having more smaller volume mucoid stools that could be consistent with encopresis. However, with the current imaging, there is some inflammation within the descending colon as well as the retained capsule that was initially administered in November of 2018, which also lends itself towards poor colonic transit. At this point in time, the majority of the patient's symptoms are related to her constipation and delayed colonic transit of stool and resultant retention of the capsule endoscopy. RECOMMENDATIONS: 1. Would place the patient on MiraLAX 1 capful b.i.d. in an attempt to facilitate defecation and relief of her constipation. 2. I will order Fleet Enemas x2 in order to relieve any distal stool impaction resulting in encopresis. 3. I would attempt to obtain the prior colonoscopy records from [facility] in November 2017. However, if unable to do so, I would consider repeating the colonoscopy once the patient has been having more frequent bowel movements to confirm the diagnosis of stercoral colitis (ischemic colitis has not been ruled out at this time). 4. Would maintain normotensive pressures with the possibility of ischemic colitis. 5. Would avoid any anticoagulation at least for the time being. 6. Would avoid any narcotic administration as this would further exacerbate her abdominal pain. 7. We will place the patient on Naloxegol for reversal of the opiate affects on the gut as well as the chronic effects of tramadol use daily as an outpatient. We will continue to follow. Please call with any questions. Job ID: [id number]
[2019-01-31] MEDS: Piperacillin/Tazobactam 3.375 GM in Sodium Chloride 0.9% 100 ML IVPB SCH ×3 (05:30→17:44)
[2019-01-31] MEDS: Ondansetron PF 4 MG/2 ML Vial IVP PRN (05:31)
[2019-01-31] MEDS: Sodium Chloride 0.9% 1,000 ML IV SCH (08:36)
[2019-01-31] MEDS: Polyethylene Glycol 3350 17 GM Packet PO SCH (08:37)
[2019-01-31] MEDS ORDERED: Promethazine HCl 25 MG/ML VIAL SLOW IVP SCH (12:15)
[2019-01-31] MEDS ORDERED: chlorproMAZINE HCl 50 MG/2 ML AMP SLOW IVP SCH (14:00)
[2019-01-31] MEDS ORDERED: Lorazepam 2 MG/ML VIAL ONE (14:04)
[2019-01-31] MEDS ORDERED: Lorazepam 2 MG/ML VIAL SLOW IVP SCH (14:15)
[2019-01-31] MEDS: Lidocaine 5% Patch TD SCH (16:41)
[2019-01-31] MEDS: Ondansetron PF 4 MG/2 ML Vial IVP SCH (16:43)
[2019-01-31] MEDS ORDERED: Mineral Oil ENEMA PR SCH (17:00)
--- NOTE | 2019-01-31 18:16 | PRG ---
DATE OF SERVICE: 01/31/2019 REASON FOR CONSULTATION: Obstipation. SUBJECTIVE: Overnight, the patient had significantly increased nausea and vomiting and was unable to tolerate much of her medications via the oral route. She was given MiraLAX this morning in addition to naloxegol as part of treatment for opioid-induced constipation, but promptly vomited both of these medications and in the process of raising the question whether or not, she absorbed any medication at all. Throughout the day today, she has been having intermittent episodes of nausea and vomiting with darker brown colored emesis, but no episodes of hematemesis or coffee-ground emesis. She also states that she continues to have the generalized abdominal pain that is unchanged in terms of location, character, or severity. Currently, she denies any fevers, chills, GI bleeding, diarrhea, or constipation. Of note, she was given Fleet Enema x1 last night and did not have any significant bowel movement with this administration. OBJECTIVE: VITAL SIGNS: Temperature 98.8, pulse 109, blood pressure 168/65, respiratory rate 18, saturating 97% on room air. GENERAL: The patient was lying in bed, in mild distress, initially somnolent, but upon waking, was alert and oriented x3. CARDIOVASCULAR: Tachycardic rate, but regular rhythm. RESPIRATORY: Clear to auscultation bilaterally. ABDOMEN: Normoactive bowel sounds. Soft. Mild abdominal distention. Tenderness to palpation in all abdominal quadrants. EXTREMITIES: No cyanosis, clubbing, or edema. LABORATORY DATA: No current studies are available for review. IMAGING DATA: No current GI imaging is available for review. ASSESSMENT AND PLAN: The patient is a 68-year-old female with past medical history of atrial fibrillation/atrial flutter, status post ablation, gastroesophageal reflux disease, nephrolithiasis, diabetes, hyperlipidemia, hypertension, hypothyroidism, and more recently Clostridium difficile infection, presenting with obstipation. 1. Obstipation/stercoral colitis. 2. The patient initially presented with a history of Clostridium difficile colitis that was associated with increased frequency of diarrhea like bowel movements. She was subsequently treated for this condition with oral vancomycin and with approximately 1 week therapy to go, began to exhibit increased constipation, having approximately one bowel movement every 1 to 2 days that was hard in consistency and hard to pass requiring intermittent straining in order to facilitate defecation. Upon review with the patient's family at bedside today, she has been having significant problems with constipation that have been present for the last 1 to 2 years. On admission to the ER during this hospitalization, she was noted to have a significant amount of retained stool throughout the entire colon as well as visualization of a capsule endoscopy within the left colon that was ingested in November 2018 as part of workup related to iron deficiency anemia. At this time, she is exhibiting increased nausea, vomiting in association with this abdominal pain, which seems to be stemming from significant constipation/obstipation. Currently, she has not responded well to administration of osmotic laxatives from an oral route nor did she have any additional bowel movements with Fleet Enema x1 yesterday, but it is unclear how long the enema was held and whether or not, she would benefit from further administration of enemas. Given her decreased tolerance to oral intake, transfer of medications to either subcutaneous or IV formulation is prudent at this time. At this time, the most likely reason for her increased significant constipation would be either due to delayed colonic transit or opioid-induced constipation. RECOMMENDATIONS: 1. Would hold the MiraLAX twice daily given her relative inability to tolerate oral intake. 2. Would give the patient a mineral enema today in an attempt to loosen/dissolve stool from a distal standpoint. 3. Would recommend a glycerin suppository daily in order to facilitate again having a bowel movement. 4. Would transfer the patient from the naloxegol to methylnaltrexone given its subcutaneous route of administration. 5. Would attempt to minimize any narcotic administration at this point as it could further exacerbate her constipation/obstipation. 6. Would place the patient on a relatively aggressive antiemetic medication regimen including scheduled Zofran q.8 hours along with Reglan 10 mg every 8 hours to be used interspersed between administration of Zofran. 7. We will continue to follow. Please call with any questions. Job ID: [id number]
[2019-01-31] MEDS ORDERED: Methylnaltrexone 12 MG/0.6 ML VIAL SC SCH (18:30)
--- NOTE | 2019-01-31 19:28 | PDOC.PN ---
- Subjective Encounter Start Date: 01/31/19 Encounter Start Time: 09:40 Pt seen for followup re: abdo pain. Has on and off ando pain. Nausea+. Vomited after receiving medication. - Objective Resuscitation Status - Order Detail: 01/29/19 20:26 Resuscitation Status Routine Resuscitation Status: FULL: Full Resuscitation Discussed with: patient and MAR Reviewed: Yes Vital Signs & Weight: Vital Signs (12 hours) Temp Pulse Resp BP BP Pulse Ox 01/31/19 15:59 98.8 F 01/31/19 15:16 109 H 18 168/65 H 97 01/31/19 11:09 98.7 F 70 16 167/65 H 98 01/31/19 08:35 97 Weight Admit Weight 114 lb 2 oz Weight 114 lb 2 oz I&O: 01/30/19 01/31/19 02/01/19 06:59 06:59 06:59 Intake Total 320 1222 620 Output Total 300 Balance 320 1222 320 Result Diagrams: 01/30/19 05:35 01/30/19 05:34 Additional Labs: Accuchecks 01/31/19 01/31/19 01/31/19 15:50 11:10 06:00 POC Glucose 158 H 172 H 152 H 01/30/19 01/30/19 19:43 16:17 POC Glucose 144 H 118 H Labs reviewed by me Phys Exam - Physical Examination Constitutional: NAD HEENT: moist MMs Neck: supple Respiratory: clear to auscultation bilateral Cardiovascular: RRR Gastrointestinal: soft, positive bowel sounds Mild diffuse tenderness, no guarding or rigidity Neurological: moves all 4 limbs Psychiatric: normal affect Dx/Plan (1) Intractable abdominal pain Code(s): R10.9 - UNSPECIFIED ABDOMINAL PAIN Status: Acute Comment: Trialing pain medications, laxatives and nausea medications (2) CAD (coronary artery disease) Code(s): I25.10 - ATHSCL HEART DISEASE OF [place] CORONARY ARTERY W/O ANG PCTRS Status: Chronic Comment: stable (3) Depression Code(s): F32.9 - MAJOR DEPRESSIVE DISORDER, SINGLE EPISODE, UNSPECIFIED Status : Chronic Comment: stable (4) Diabetes Code(s): E11.9 - TYPE 2 DIABETES MELLITUS WITHOUT COMPLICATIONS Status: Chronic Comment: controlled (5) HTN (hypertension) Code(s): I10 - ESSENTIAL (PRIMARY) HYPERTENSION Status: Chronic Comment: titrate antihypertensives as needed (6) Hypothyroid Code(s): E03.9 - HYPOTHYROIDISM, UNSPECIFIED Status: Chronic Comment: stable - Plan * . Review of Systems - Review of Systems Gastrointestinal: Nausea, Vomiting, Abdominal Pain, Constipation. negative: Diarrhea, Melena, Hematochezia Genitourinary: negative: Dysuria, Frequency, Incontinence, Hematuria, Retention - Medications/Allergies Allergies/Adverse Reactions: Allergies Allergy/AdvReac Type Severity Reaction Status Date / Time meperidine [From Demerol] Allergy Hives Verified 01/29/19 21:40 chlorpromazine AdvReac Verified 01/31/19 17:18 [From Thorazine] Medications: Current Medications Acetaminophen (Tylenol) 650 mg PO Q4H PRN PRN Reason: Headache/Fever/Mild Pain (1-3) Last Admin: 01/30/19 03:56 Dose: 650 mg Dextrose/Water (Dextrose 50%) 25 gm SLOW IVP PRN PRN PRN Reason: Hypoglycemia Glucagon (Glucagon) 1 mg IM PRN PRN PRN Reason: Hypoglycemia Glycerin (Adult Glycerin) 1 each NC DAILY [facility] Piperacillin Sod/Tazobactam (Sod 3.375 gm/ Sodium Chloride) 100 mls @ 200 mls/ hr IVPB Q6HR [facility] Last Admin: 01/31/19 17:44 Dose: 100 mls Dextrose/Water (D5w) 1,000 mls @ 0 mls/hr IV .Q0M PRN PRN Reason: Hypoglycemia Sodium Chloride (Normal Saline 0.9%) 1,000 mls @ 50 mls/hr IV .Q20H [facility] Last Admin: 01/31/19 08:36 Dose: 1,000 mls Insulin Human Lispro (Humalog) 0 units SC .MILD SLIDING SCALE PRN PRN Reason: Mild Correctional Scale Insulin Human Lispro (Humalog) 0 units SC .BEDTIME SLIDING SC PRN PRN Reason: Bedtime Correctional Scale Ketorolac Tromethamine (Toradol) 15 mg IVP Q6H PRN PRN Reason: Pain Stop: 02/04/19 10:20 Last Admin: 01/31/19 03:20 Dose: 15 mg Lidocaine (Lidoderm 5% Patch) 1 patch TD Q24HR [facility] Last Admin: 01/31/19 16:41 Dose: 1 patch Methylnaltrexone Ponce (Relistor) 12 mg SC DAILY [facility] Methylnaltrexone [place]once (Relistor) 12 mg SC NOW [facility] Stop: 01/31/19 20:30 Last Admin: 01/31/19 18:31 Dose: 12 mg Metoclopramide HCl (Reglan) 10 mg IVP Q8H PRN PRN Reason: Nausea/Vomiting Mineral Oil (Fleet Mineral Oil) 133 ml NC NOW [facility] Stop: 01/31/19 20:00 Last Admin: 01/31/19 17:44 Dose: 133 ml Miscellaneous Medication (Lidocaine Patch Removal) 1 each TOP 0400 [facility] Last Admin: 01/31/19 03:32 Dose: 1 each Morphine Sulfate (Morphine) 2 mg SLOW IVP Q4H PRN PRN Reason: Pain Last Admin: 01/30/19 14:57 Dose: 2 mg Ondansetron HCl (Zofran) 8 mg IVP Q8H [facility] Last Admin: 01/31/19 16:43 Dose: 8 mg Pantoprazole Sodium (Protonix) 40 mg IVP DAILY [facility] Polyethylene Glycol (Miralax) 17 gm PO BID [facility] Last Admin: 01/31/19 08:37 Dose: Not Given Sodium Chloride (Flush - Normal Saline) 10 ml IVF Q12HR [facility] Last Admin: 01/31/19 08:38 Dose: Not Given Sodium Chloride (Flush - Normal Saline) 10 ml IVF PRN PRN PRN Reason: Saline Flush Zolpidem Tartrate (Ambien) 5 mg PO HSPRN PRN PRN Reason: Insomnia Last Admin: 01/31/19 00:53 Dose: 5 mg
[2019-01-31] MEDS: Metoclopramide HCl 10 MG/2 ML VIAL IVP PRN (20:39)
[2019-02-01] MEDS: Piperacillin/Tazobactam 3.375 GM in Sodium Chloride 0.9% 100 ML IVPB SCH ×4 (00:09→18:15)
[2019-02-01] MEDS: Ondansetron PF 4 MG/2 ML Vial IVP SCH ×3 (00:54→16:16)
[2019-02-01] MEDS: Sodium Chloride 0.9% 1,000 ML IV SCH ×2 (04:18→19:59)
[2019-02-01] MEDS: Lidocaine Patch Removal TOP SCH (05:23)
[2019-02-01] MEDS: Ketorolac Tromethamine 30 MG/ML VIAL IVP PRN ×2 (05:25→20:09)
[2019-02-01] MEDS: Metoclopramide HCl 10 MG/2 ML VIAL IVP PRN ×2 (05:25→19:57)
[2019-02-01 05:48] LABS: #Lymphocytes 0.9 thou/uL (1.20-3.40); #Neutrophils 11.9 thou/uL (1.40-6.50); %Basophils 0.2 % (0.0-1.0); %Eosinophils 0.1 % (0.0-10.0); %Lymphocytes 6.3 % (21.0-51.0); %Monocytes 7.2 % (0.0-10.0); %Neutrophils 86.3 % (42.0-75.0); Hemoglobin 9.9 g/dL (12.0-16.0); Mean Corpuscular HGB CONC 31.9 g/dL (32.0-36.0); Mean Corpuscular Hemoglobin 29.2 pg (27.0-31.0); Mean Corpuscular Volume 91.7 fL (78.0-98.0); Mean Platelet Volume 7.7 fL (7.4-10.4); Platelet Count 310 thou/uL (130-400); RBC Distribution Width 13.5 % (11.5-14.5); Red Blood Cell (RBC) Count 3.39 mill/uL (4.20-5.40); White Blood Cell (WBC) Count 13.8 thou/uL (4.8-10.8)
[2019-02-01 06:05] LABS: ALT (SGPT) 7 U/L (8-55); AST (SGOT) 15 U/L (5-34); Albumin 3.3 g/dL (3.4-4.8); Alkaline Phosphatase 74 U/L (40-150); Anion Gap 17 mmol/L (10-20); BUN (Urea Nitrogen) 16 mg/dL (9.8-20.1); Bilirubin, Total 0.4 mg/dL (0.2-1.2); Calc. Creatinine Clearance 67 mL/min (70-130); Calcium 8.7 mg/dL (7.8-10.44); Carbon Dioxide 22 mmol/L (23-31); Chloride 112 mmol/L (98-107); Estimated GFR-MDRD Greater than 90; Globulin 2.2 g/dL (2.4-3.5); Glucose 162 mg/dL (80-115); Protein, Total 5.5 g/dL (6.0-8.3); Sodium 148 mmol/L (136-145)
[2019-02-01 06:08] LABS: Potassium 2.9 mmol/L (3.5-5.1)
[2019-02-01] MEDS ORDERED: Potassium Chloride 20 MEQ in Premix Bag 1 BAG IVPB SCH (06:45)
[2019-02-01] MEDS: Pantoprazole 40 MG VIAL IVP SCH (08:50)
[2019-02-01] MEDS: Glycerin Adult Supp. (12 ct jar) PR SCH (08:51)
[2019-02-01] MEDS: Methylnaltrexone 12 MG/0.6 ML VIAL SC SCH (09:41)
[2019-02-01] MEDS: Lidocaine 5% Patch TD SCH (16:16)
--- NOTE | 2019-02-01 19:05 | PDOC.PN ---
- Subjective Encounter Start Date: 02/01/19 Encounter Start Time: 09:00 Pt seen for followup re:abdo pain. Feels better. Had multiple BMs. Nausea better. - Objective Resuscitation Status - Order Detail: 01/29/19 20:26 Resuscitation Status Routine Resuscitation Status: FULL: Full Resuscitation Discussed with: patient and MAR Reviewed: Yes Vital Signs & Weight: Vital Signs (12 hours) Temp Pulse Resp BP Pulse Ox 02/01/19 17:11 99.2 F 77 16 155/56 H 97 02/01/19 11:52 99.1 F 78 20 165/69 H 98 02/01/19 08:50 98 02/01/19 07:47 98.5 F 78 16 146/57 H 98 Weight Admit Weight 114 lb 2 oz Weight 114 lb 2 oz I&O: 01/31/19 02/01/19 02/02/19 06:59 06:59 06:59 Intake Total 1222 1547 980 Output Total 300 0 Balance 1222 1247 980 Result Diagrams: 02/01/19 05:12 02/01/19 05:12 Additional Labs: Accuchecks 02/01/19 02/01/19 02/01/19 17:16 11:52 04:30 POC Glucose 221 H 171 H 152 H 01/31/19 19:54 POC Glucose 172 H Labs reviewed by me Phys Exam - Physical Examination Constitutional: NAD HEENT: moist MMs Neck: supple Respiratory: clear to auscultation bilateral Cardiovascular: RRR Gastrointestinal: soft Neurological: moves all 4 limbs Psychiatric: normal affect Dx/Plan (1) Intractable abdominal pain Code(s): R10.9 - UNSPECIFIED ABDOMINAL PAIN Status: Acute Comment: Improving (2) CAD (coronary artery disease) Code(s): I25.10 - ATHSCL HEART DISEASE OF [place] CORONARY ARTERY W/O ANG PCTRS Status: Chronic Comment: stable (3) Depression Code(s): F32.9 - MAJOR DEPRESSIVE DISORDER, SINGLE EPISODE, UNSPECIFIED Status : Chronic Comment: stable (4) Diabetes Code(s): E11.9 - TYPE 2 DIABETES MELLITUS WITHOUT COMPLICATIONS Status: Chronic Comment: controlled, continue accuchecks and insulin sliding scale (5) HTN (hypertension) Code(s): I10 - ESSENTIAL (PRIMARY) HYPERTENSION Status: Chronic Comment: titrate antihypertensives as needed (6) Hypothyroid Code(s): E03.9 - HYPOTHYROIDISM, UNSPECIFIED Status: Chronic Comment: stable - Plan * . Review of Systems - Review of Systems Constitutional: negative: fever, chills, sweats, weakness, malaise Gastrointestinal: negative: Nausea, Vomiting, Abdominal Pain, Diarrhea, Constipation, Melena, Hematochezia - Medications/Allergies Allergies/Adverse Reactions: Allergies Allergy/AdvReac Type Severity Reaction Status Date / Time meperidine [From Demerol] Allergy Hives Verified 01/29/19 21:40 chlorpromazine AdvReac Verified 01/31/19 17:18 [From Thorazine] Medications: Current Medications Acetaminophen (Tylenol) 650 mg PO Q4H PRN PRN Reason: Headache/Fever/Mild Pain (1-3) Last Admin: 01/30/19 03:56 Dose: 650 mg Dextrose/Water (Dextrose 50%) 25 gm SLOW IVP PRN PRN PRN Reason: Hypoglycemia Glucagon (Glucagon) 1 mg IM PRN PRN PRN Reason: Hypoglycemia Glycerin (Adult Glycerin) 1 each [place] DAILY [facility] Last Admin: 02/01/19 08:51 Dose: 1 supp Piperacillin Sod/Tazobactam (Sod 3.375 gm/ Sodium Chloride) 100 mls @ 200 mls/ hr IVPB Q6HR [facility] Last Admin: 02/01/19 18:15 Dose: 100 mls Dextrose/Water (D5w) 1,000 mls @ 0 mls/hr IV .Q0M PRN PRN Reason: Hypoglycemia Sodium Chloride (Normal Saline 0.9%) 1,000 mls @ 50 mls/hr IV .Q20H [facility] Last Admin: 02/01/19 04:18 Dose: Not Given Insulin Human Lispro (Humalog) 0 units SC .MILD SLIDING SCALE PRN PRN Reason: Mild Correctional Scale Last Admin: 02/01/19 18:15 Dose: 2 unit Insulin Human Lispro (Humalog) 0 units SC .BEDTIME SLIDING SC PRN PRN Reason: Bedtime Correctional Scale Ketorolac Tromethamine (Toradol) 15 mg IVP Q6H PRN PRN Reason: Pain Stop: 02/04/19 10:20 Last Admin: 02/01/19 05:25 Dose: 15 mg Lidocaine (Lidoderm 5% Patch) 1 patch TD Q24HR REPLACED BY [facility] Last Admin: 02/01/19 16:16 Dose: 1 patch Methylnaltrexone [place] (Relistor) 12 mg SC DAILY REPLACED BY [facility] Last Admin: 02/01/19 09:41 Dose: 12 mg Metoclopramide HCl (Reglan) 10 mg IVP Q8H PRN PRN Reason: Nausea/Vomiting Last Admin: 02/01/19 05:25 Dose: 10 mg Miscellaneous Medication (Lidocaine Patch Removal) 1 each TOP 0400 REPLACED BY [facility] Last Admin: 02/01/19 05:23 Dose: 1 each Morphine Sulfate (Morphine) 2 mg SLOW IVP Q4H PRN PRN Reason: Pain Last Admin: 01/30/19 14:57 Dose: 2 mg Ondansetron HCl (Zofran) 8 mg IVP Q8H REPLACED BY [facility] Last Admin: 02/01/19 16:16 Dose: 8 mg Pantoprazole Sodium (Protonix) 40 mg IVP DAILY REPLACED BY [facility] Last Admin: 02/01/19 08:50 Dose: 40 mg Polyethylene Glycol (Miralax) 17 gm PO BID REPLACED BY [facility] Last Admin: 01/31/19 08:37 Dose: Not Given Saccharomyces Boulardii (Florastor) 250 mg PO DAILY REPLACED BY [facility] Sodium Chloride (Flush - Normal Saline) 10 ml IVF Q12HR REPLACED BY [facility] Last Admin: 02/01/19 09:24 Dose: Not Given Sodium Chloride (Flush - Normal Saline) 10 ml IVF PRN PRN PRN Reason: Saline Flush Zolpidem Tartrate (Ambien) 5 mg PO HSPRN PRN PRN Reason: Insomnia Last Admin: 01/31/19 00:53 Dose: 5 mg
[2019-02-02] MEDS: Piperacillin/Tazobactam 3.375 GM in Sodium Chloride 0.9% 100 ML IVPB SCH ×4 (00:10→17:50)
[2019-02-02] MEDS: Ondansetron PF 4 MG/2 ML Vial IVP SCH ×3 (00:11→17:49)
[2019-02-02] MEDS: Ketorolac Tromethamine 30 MG/ML VIAL IVP PRN ×2 (05:11→15:05)
[2019-02-02] MEDS: Metoclopramide HCl 10 MG/2 ML VIAL IVP PRN ×3 (05:12→22:05)
[2019-02-02] MEDS: Lidocaine Patch Removal TOP SCH (05:12)
--- NOTE | 2019-02-02 09:01 | PRG ---
DATE OF SERVICE: 02/01/2019 TIME OF SERVICE: At 1800 hours. REASON FOR CONSULTATION: Obstipation. SUBJECTIVE: Earlier this morning, the patient had multiple bowel movements, which resulted in decompression of her colon and significant improvement in her abdominal pain. The bowel movements were darker in coloration per family and nursing staff, but did not exhibit any evidence of overt GI bleeding. Currently, she states that her belly still continues to ache/feels sore, but is much improved when compared to 24 hours prior. She had been able to tolerate approximately 50% of her lunch earlier today without any significant difficulty and no further episodes of nausea and vomiting. Currently, she denies any nausea, vomiting, fevers, chills, or GI bleeding. OBJECTIVE: VITAL SIGNS: Temperature 99.1, pulse 78, blood pressure 165/69, respiratory rate 20, and saturating 98% on room air. GENERAL: The patient was lying in bed, in no acute distress. Alert and oriented x4. CARDIOVASCULAR: Regular rate and rhythm. RESPIRATORY: Clear to auscultation bilaterally. ABDOMEN: Normoactive bowel sounds. Soft. No distention. Mild tenderness to palpation in all abdominal quadrants. EXTREMITIES: No cyanosis, clubbing, or edema. LABORATORY DATA: CBC with a white blood cell count of 13.8, hemoglobin 9.9, hematocrit 31.1, and platelets 310. Chemistry with a sodium of 148, potassium 2.9, chloride 112, CO2 of 22, BUN 16, creatinine 0.64, glucose 162. AST 15, ALT 7, alkaline phosphatase 74, and total bilirubin 0.4. IMAGING DATA: No current GI imaging is available for review. ASSESSMENT AND PLAN: The patient is a 68-year-old female with past medical history of atrial fibrillation/atrial flutter, status post ablation, gastroesophageal reflux disease, nephrolithiasis, diabetes, hyperlipidemia, hypertension, hypothyroidism , and more recently Clostridium difficile colitis, presenting with obstipation. Obstipation/stercoral colitis. The patient initially presented with a recent history of Clostridium difficile colitis that was associated with increased frequency of diarrhea-like bowel movements. She was subsequently placed on appropriate antibiotic therapy for this and approximately 1 week prior to admission, began to exhibit increased constipation, having approximately one bowel movement every 1 to 2 days. It was hard in consistency and required significant straining in order to facilitate defecation. Over the course of that week constipation, she began to have increasingly more amounts of abdominal pain in addition to inability to have a bowel movement and minimal amounts of flatus that prompted her to seek healthcare assistance. On admission to the ER, she was noted to have significant amount of retained stool throughout the entire colon as well as a retained video capsule within the left colon (was part of treatment of iron deficiency anemia and placed in November 2018). On admission, she had a significant increased nausea and vomiting in addition to this abdominal pain. However, over the last 24 hours, she has responded well to administration of osmotic laxatives, Fleet Enema, mineral oil enema, and glycerin suppository as well as methylnaltrexone and had multiple bowel movements today resulting in a large amount of stool expressed and significant improvement in her abdominal pain. She was able to tolerate approximately 50% of her diet without any further episodes of nausea or vomiting. RECOMMENDATIONS: 1. We continue to hold MiraLAX at this time. However, we will consider restarting this within the next 24 hours given her ability to tolerate oral intake. 2. We would hold on an additional mineral oil enema unless the patient is no longer having any bowel movements. 3. We would continue the glycerin suppository daily in order to continue facilitate having bowel movements. 4. We would continue the methylnaltrexone for the next 24 hours and then switched to naloxegol given her increased oral intake and probable opiate-induced constipation. 5. We would attempt to minimize any narcotic administration at this point, as it can exacerbate constipation/obstipation. 6. We will continue with aggressive antiemetic support. We will continue to follow. Please call with any questions. Job ID: [id number] [facility]
[2019-02-02 09:54] LABS: #Lymphocytes 0.8 thou/uL (1.20-3.40); #Monocytes 0.6 thou/uL (0.11-0.59); #Neutrophils 8.4 thou/uL (1.40-6.50); %Basophils 0.4 % (0.0-1.0); %Eosinophils 0.1 % (0.0-10.0); %Lymphocytes 7.8 % (21.0-51.0); %Monocytes 6.3 % (0.0-10.0); %Neutrophils 85.4 % (42.0-75.0); Mean Corpuscular HGB CONC 32.3 g/dL (32.0-36.0); Mean Corpuscular Hemoglobin 29.8 pg (27.0-31.0); Mean Corpuscular Volume 92.3 fL (78.0-98.0); Mean Platelet Volume 7.6 fL (7.4-10.4); Platelet Count 227 thou/uL (130-400); RBC Distribution Width 13.5 % (11.5-14.5); Red Blood Cell (RBC) Count 3.02 mill/uL (4.20-5.40); White Blood Cell (WBC) Count 9.8 thou/uL (4.8-10.8)
[2019-02-02] MEDS: Methylnaltrexone 12 MG/0.6 ML VIAL SC SCH (10:07)
[2019-02-02] MEDS: Pantoprazole 40 MG VIAL IVP SCH (10:10)
[2019-02-02] MEDS: Glycerin Adult Supp. (12 ct jar) PR SCH (10:11)
[2019-02-02 10:13] LABS: Anion Gap 12 mmol/L (10-20); BUN (Urea Nitrogen) 17 mg/dL (9.8-20.1); Calc. Creatinine Clearance 73 mL/min (70-130); Calcium 8.4 mg/dL (7.8-10.44); Carbon Dioxide 27 mmol/L (23-31); Chloride 110 mmol/L (98-107); Estimated GFR-MDRD Greater than 90; Glucose 145 mg/dL (80-115); Sodium 146 mmol/L (136-145)
[2019-02-02] MEDS: Polyethylene Glycol 3350 17 GM Packet PO SCH ×2 (10:14→20:53)
[2019-02-02] MEDS: Saccharomyces boulardii 250 MG CAP PO SCH (10:15)
[2019-02-02 10:17] LABS: Potassium 2.5 mmol/L (3.5-5.1)
--- NOTE | 2019-02-02 10:28 | PRG ---
DATE OF SERVICE: 02/02/2019 REASON FOR CONSULTATION: Obstipation. SUBJECTIVE: Last night for dinner, the patient did experience one episode of increased nausea and vomiting with nonbloody emesis that has not since recurred. She does continue to have generalized GI discomfort, but is currently doing well without any significant movements and no further episodes of vomiting, although , she does have some mild nausea at this time. Overnight, she had approximately 7 to 8 liquid bowel movements, but added that she still feels that there is a harder stool still left in her colon. She does continue to have mild abdominal pain consistent more of an aching/soreness type feeling, but much improved when compared to previous. Currently, she denies any vomiting, fevers, chills, or GI bleeding. OBJECTIVE: VITAL SIGNS: Temperature 99.8, pulse 74, blood pressure 138/64, respiratory rate 16, and saturating 98% on room air. GENERAL: The patient was lying in bed, in no acute distress. Alert and oriented x4. CARDIOVASCULAR: Regular rate and rhythm. RESPIRATORY: Clear to auscultation bilaterally. ABDOMEN: Hyperactive bowel sounds. Soft, nondistended. Mild tenderness to palpation in all abdominal quadrants. EXTREMITIES: No cyanosis, clubbing, or edema. LABORATORY DATA: No current studies are available for review. IMAGING DATA: No current GI imaging is available for review. ASSESSMENT AND PLAN: The patient is a 68-year-old female with past medical history of atrial fibrillation/atrial flutter, status post ablation, gastroesophageal reflux disease, nephrolithiasis, diabetes, hyperlipidemia, hypertension, hypothyroidism , and more recently Clostridium difficile colitis, presenting with obstipation. Obstipation. The patient initially presented with a history of Clostridium difficile colitis, for which she was placed on adequate antibiotic treatment. However, with approximately 4 to 5 days left in her treatment, she started to experience increased constipation with passage of harder stools and decreased frequency of stooling itself. Upon questioning the patient, she states that this has been a problem for her at least the last 2 to 3 months and had only alleviated itself with the Clostridium difficile colitis. With the increased constipation , it was associated with increased abdominal pain generalized to the entire abdomen that reached a fairly high severity prompting her to seek healthcare admission. On admission to the ER, she was noted to have a significant amount of retained stool throughout the entire colon as well as retained video capsule within the left colon that is a remnant of workup related to iron-deficiency anemia that was done in November 2018. On admission, she was noted to have significant nausea and vomiting in addition to this abdominal pain and constipation. However, over the last 24 to 48 hours, she has had multiple bowel movements after being placed on osmotic laxatives (MiraLAX), Fleet enema x1, mineral oil enema x1, glycerin suppository x1, and methylnaltrexone. At this time given her improving clinical status and the episode of nausea and vomiting last night, I would continue with current therapy rather than transferring her over to more oral formulations of the current medication management. I would also change her to more of a clear liquid diet as opposed to full diet in an attempt to increase oral intake and facilitate having a bowel movement. RECOMMENDATIONS: 1. We would continue to hold MiraLAX at this time given her sudden increase in having bowel movements. 2. Given the multiple bowel movements overnight, I would hold on an additional mineral enema at least for the time being. 3. We would continue the glycerin suppository and methylnaltrexone for at least the next 24 hours and monitor for tolerance to oral intake. 4. We would attempt to minimize narcotic administration. 5. Continue with aggressive antiemetic support. We will continue to follow. Please call with any questions. Job ID: [id number] [facility]
--- NOTE | 2019-02-02 11:52 | RAD ---
SUPINE ABDOMEN: Indications: Abdominal pain and obstipation. Comparison: 01-06-19 FINDINGS/IMPRESSION: Scattered stool and gas throughout the colon appears unremarkable. The radiopaque ingested device is seen overlying the left midabdomen, probably in the mid left descending colon. There has been reducti on in the amount of stool within the colon when compared to the prior study. The small bowel gas que hema is unremarkable. POS: [facility]
[2019-02-02] MEDS: NS 0.9% w/ 40 MEQ KCL 1,000 ML IV SCH (12:15)
[2019-02-02] MEDS: Potassium Chloride 20 MEQ in Premix Bag 1 BAG IVPB SCH ×2 (13:26→15:23)
[2019-02-02] MEDS: Lidocaine 5% Patch TD SCH (16:13)
--- NOTE | 2019-02-02 17:14 | PDOC.PN ---
- Subjective Encounter Start Date: 02/02/19 Encounter Start Time: 09:40 Pt seen for followup re: abdo pain. Reports pain is better. having bowel movements. - Objective Resuscitation Status - Order Detail: 01/29/19 20:26 Resuscitation Status Routine Resuscitation Status: FULL: Full Resuscitation Discussed with: patient and MAR Reviewed: Yes Vital Signs & Weight: Vital Signs (12 hours) Temp Pulse Resp BP BP Pulse Ox 02/02/19 16:25 98.2 F 65 18 186/70 H 99 02/02/19 12:46 98.9 F 62 12 168/70 H 98 02/02/19 08:15 99.5 F 60 12 154/74 H 97 02/02/19 08:00 98 Weight Admit Weight 114 lb 2 oz Weight 114 lb 2 oz I&O: 02/01/19 02/02/19 02/03/19 06:59 06:59 06:59 Intake Total 1547 2537 Output Total 300 0 Balance 1247 2537 Result Diagrams: 02/02/19 09:40 02/02/19 09:40 Additional Labs: Accuchecks 02/02/19 02/02/19 02/01/19 11:21 04:50 20:47 POC Glucose 146 H 168 H 148 H 02/01/19 17:16 POC Glucose 221 H labs reviewed by me Phys Exam - Physical Examination Constitutional: NAD HEENT: moist MMs Neck: supple Respiratory: clear to auscultation bilateral Cardiovascular: RRR Gastrointestinal: soft Neurological: moves all 4 limbs Psychiatric: normal affect Dx/Plan (1) Intractable abdominal pain Code(s): R10.9 - UNSPECIFIED ABDOMINAL PAIN Status: Acute Comment: Continues to improve slowly (2) Hypokalemia Code(s): E87.6 - HYPOKALEMIA Status: Acute Comment: replace potassium and recheck (3) CAD (coronary artery disease) Code(s): I25.10 - ATHSCL HEART DISEASE OF [place] CORONARY ARTERY W/O ANG PCTRS Status: Chronic Comment: stable (4) Depression Code(s): F32.9 - MAJOR DEPRESSIVE DISORDER, SINGLE EPISODE, UNSPECIFIED Status : Chronic Comment: stable, continue current medications (5) Diabetes Code(s): E11.9 - TYPE 2 DIABETES MELLITUS WITHOUT COMPLICATIONS Status: Chronic Comment: continue accuchecks and insulin sliding scale (6) HTN (hypertension) Code(s): I10 - ESSENTIAL (PRIMARY) HYPERTENSION Status: Chronic Comment: titrate antihypertensives as needed (7) Hypothyroid Code(s): E03.9 - HYPOTHYROIDISM, UNSPECIFIED Status: Chronic Comment: stable - Plan * . Review of Systems - Review of Systems Constitutional: negative: fever, chills, sweats, weakness, malaise Gastrointestinal: negative: Nausea, Vomiting, Abdominal Pain, Diarrhea, Constipation, Melena, Hematochezia - Medications/Allergies Allergies/Adverse Reactions: Allergies Allergy/AdvReac Type Severity Reaction Status Date / Time meperidine [From Demerol] Allergy Hives Verified 01/29/19 21:40 chlorpromazine AdvReac Verified 01/31/19 17:18 [From Thorazine] Medications: Current Medications Acetaminophen (Tylenol) 650 mg PO Q4H PRN PRN Reason: Headache/Fever/Mild Pain (1-3) Last Admin: 01/30/19 03:56 Dose: 650 mg Dextrose/Water (Dextrose 50%) 25 gm SLOW IVP PRN PRN PRN Reason: Hypoglycemia Glucagon (Glucagon) 1 mg IM PRN PRN PRN Reason: Hypoglycemia Glycerin (Adult Glycerin) 1 each [place] DAILY [facility] Last Admin: 02/02/19 10:11 Dose: 1 supp Piperacillin Sod/Tazobactam (Sod 3.375 gm/ Sodium Chloride) 100 mls @ 200 mls/ hr IVPB Q6HR [facility] Last Admin: 02/02/19 12:13 Dose: 100 mls Dextrose/Water (D5w) 1,000 mls @ 0 mls/hr IV .Q0M PRN PRN Reason: Hypoglycemia Potassium Chloride/Sodium Chloride (Ns 0.9% W/ 40 Meq Kcl) 1,000 mls @ 50 mls/ hr IV .Q20H [facility] Last Admin: 02/02/19 12:15 Dose: 1,000 mls Insulin Human Lispro (Humalog) 0 units SC .MILD SLIDING SCALE PRN PRN Reason: Mild Correctional Scale Last Admin: 02/01/19 18:15 Dose: 2 unit Insulin Human Lispro (Humalog) 0 units SC .BEDTIME SLIDING SC PRN PRN Reason: Bedtime Correctional Scale Ketorolac Tromethamine (Toradol) 15 mg IVP Q6H PRN PRN Reason: Pain Stop: 02/04/19 10:20 Last Admin: 02/02/19 15:05 Dose: 15 mg Lidocaine (Lidoderm 5% Patch) 1 patch TD Q24HR [facility] Last Admin: 02/02/19 16:13 Dose: 1 patch Methylnaltrexone [place] (Relistor) 12 mg SC DAILY [facility] Last Admin: 02/02/19 10:07 Dose: 12 mg Metoclopramide HCl (Reglan) 10 mg IVP Q8H PRN PRN Reason: Nausea/Vomiting Last Admin: 02/02/19 13:29 Dose: 10 mg Miscellaneous Medication (Lidocaine Patch Removal) 1 each TOP 0400 [facility] Last Admin: 02/02/19 05:12 Dose: 1 each Morphine Sulfate (Morphine) 2 mg SLOW IVP Q4H PRN PRN Reason: Pain Last Admin: 01/30/19 14:57 Dose: 2 mg Ondansetron HCl (Zofran) 8 mg IVP Q8H [facility] Last Admin: 02/02/19 10:11 Dose: 8 mg Pantoprazole Sodium (Protonix) 40 mg IVP DAILY [facility] Last Admin: 02/02/19 10:10 Dose: 40 mg Polyethylene Glycol (Miralax) 17 gm PO BID [facility] Last Admin: 02/02/19 10:14 Dose: Not Given Saccharomyces Boulardii (Florastor) 250 mg PO DAILY [facility] Last Admin: 02/02/19 10:15 Dose: Not Given Sodium Chloride (Flush - Normal Saline) 10 ml IVF Q12HR [facility] Last Admin: 02/02/19 10:21 Dose: Not Given Sodium Chloride (Flush - Normal Saline) 10 ml IVF PRN PRN PRN Reason: Saline Flush Zolpidem Tartrate (Ambien) 5 mg PO HSPRN PRN PRN Reason: Insomnia Last Admin: 01/31/19 00:53 Dose: 5 mg
[2019-02-02 18:34] LABS: Potassium 2.7 mmol/L (3.5-5.1)
[2019-02-02] MEDS ORDERED: Potassium Chloride 40 MEQ in Sodium Chloride 0.9% 250 ML 250 ML IVPB SCH (19:45)
[2019-02-02] MEDS: Zolpidem Tartrate 5 MG TAB PO PRN (20:47)
[2019-02-02] MEDS ORDERED: hydrALAZINE 20 MG/ML VIAL SLOW IVP PRN (21:31)
[2019-02-03] MEDS: Ondansetron PF 4 MG/2 ML Vial IVP SCH ×3 (00:55→15:47)
[2019-02-03] MEDS: Piperacillin/Tazobactam 3.375 GM in Sodium Chloride 0.9% 100 ML IVPB SCH ×4 (00:56→18:39)
[2019-02-03] MEDS: Ketorolac Tromethamine 30 MG/ML VIAL IVP PRN ×2 (04:07→16:30)
[2019-02-03] MEDS: Lidocaine Patch Removal TOP SCH (04:09)
[2019-02-03] MEDS: Metoclopramide HCl 10 MG/2 ML VIAL IVP PRN ×2 (05:33→20:35)
[2019-02-03] MEDS: NS 0.9% w/ 40 MEQ KCL 1,000 ML IV SCH (05:56)
[2019-02-03 06:10] LABS: #Lymphocytes 0.9 thou/uL (1.20-3.40); #Monocytes 0.6 thou/uL (0.11-0.59); #Neutrophils 6.1 thou/uL (1.40-6.50); %Basophils 0.3 % (0.0-1.0); %Eosinophils 0.8 % (0.0-10.0); %Lymphocytes 11.8 % (21.0-51.0); %Monocytes 7.2 % (0.0-10.0); %Neutrophils 79.8 % (42.0-75.0); Hemoglobin 9.4 g/dL (12.0-16.0); Mean Corpuscular Hemoglobin 29.6 pg (27.0-31.0); Mean Corpuscular Volume 92.4 fL (78.0-98.0); Mean Platelet Volume 7.9 fL (7.4-10.4); Platelet Count 228 thou/uL (130-400); RBC Distribution Width 13.6 % (11.5-14.5); Red Blood Cell (RBC) Count 3.19 mill/uL (4.20-5.40); White Blood Cell (WBC) Count 7.6 thou/uL (4.8-10.8)
[2019-02-03 06:11] LABS: #Eosinphils 0.1 thou/uL (0.0-0.7)
[2019-02-03 06:30] LABS: Anion Gap 11 mmol/L (10-20); BUN (Urea Nitrogen) 15 mg/dL (9.8-20.1); Calc. Creatinine Clearance 74 mL/min (70-130); Calcium 8.2 mg/dL (7.8-10.44); Carbon Dioxide 24 mmol/L (23-31); Chloride 110 mmol/L (98-107); Estimated GFR-MDRD Greater than 90; Glucose 124 mg/dL (80-115); Potassium 3.3 mmol/L (3.5-5.1); Sodium 142 mmol/L (136-145)
[2019-02-03] MEDS: Glycerin Adult Supp. (12 ct jar) PR SCH (08:59)
[2019-02-03] MEDS: Methylnaltrexone 12 MG/0.6 ML VIAL SC SCH (09:00)
[2019-02-03] MEDS: Saccharomyces boulardii 250 MG CAP PO SCH (09:00)
[2019-02-03] MEDS: Pantoprazole 40 MG VIAL IVP SCH (09:02)
[2019-02-03] MEDS: Polyethylene Glycol 3350 17 GM Packet PO SCH (09:03)
[2019-02-03] MEDS: Citrucel 500 MG TAB PO SCH (12:16)
[2019-02-03] MEDS ORDERED: Potassium Chloride 40 MEQ in Sodium Chloride 0.9% 250 ML 250 ML IV SCH (12:30)
[2019-02-03] MEDS: Lidocaine 5% Patch TD SCH (15:52)
--- NOTE | 2019-02-03 18:50 | PDOC.PN ---
- Subjective Encounter Start Date: 02/03/19 Encounter Start Time: 10:00 Pt seen for followup re: clostridium difficile colitis. feels much better. - Objective Resuscitation Status - Order Detail: 01/29/19 20:26 Resuscitation Status Routine Resuscitation Status: FULL: Full Resuscitation Discussed with: patient and Vital Signs & Weight: Vital Signs (12 hours) Temp Pulse Resp BP BP Pulse Ox 02/03/19 16:30 62 188/83 H 02/03/19 15:58 99.2 F 62 18 188/83 H 98 02/03/19 11:07 99.5 F 69 18 170/78 H 98 02/03/19 08:00 96 02/03/19 07:17 98.8 F 69 18 175/74 H 96 Weight Admit Weight 114 lb 2 oz Weight 114 lb 2 oz I&O: 02/02/19 02/03/19 02/04/19 06:59 06:59 06:59 Intake Total 2536 2025 Output Total 0 Balance 2536 2025 Result Diagrams: 02/03/19 05:45 02/03/19 05:45 Additional Labs: Accuchecks 02/03/19 02/03/19 02/03/19 16:04 11:10 06:07 POC Glucose 104 119 H 123 H 02/02/19 20:38 POC Glucose 132 H Phys Exam - Physical Examination Constitutional: NAD HEENT: moist MMs Neck: supple Respiratory: clear to auscultation bilateral Cardiovascular: RRR Gastrointestinal: soft Neurological: moves all 4 limbs Psychiatric: normal affect Dx/Plan (1) Clostridium difficile colitis Status: Acute Comment: c. diff antigen +ve, toxin -ve. However, pt has a past history of C. diff, will initiate treatment (2) Intractable abdominal pain Code(s): R10.9 - UNSPECIFIED ABDOMINAL PAIN Status: Acute Comment: Improving (3) Hypokalemia Code(s): E87.6 - HYPOKALEMIA Status: Acute Comment: Improved (4) CAD (coronary artery disease) Code(s): I25.10 - ATHSCL HEART DISEASE OF [place] CORONARY ARTERY W/O ANG PCTRS Status: Chronic Comment: stable (5) Depression Code(s): F32.9 - MAJOR DEPRESSIVE DISORDER, SINGLE EPISODE, UNSPECIFIED Status : Chronic Comment: stable (6) Diabetes Code(s): E11.9 - TYPE 2 DIABETES MELLITUS WITHOUT COMPLICATIONS Status: Chronic Comment: continue accuchecks and insulin sliding scale (7) HTN (hypertension) Code(s): I10 - ESSENTIAL (PRIMARY) HYPERTENSION Status: Chronic Comment: titrate antihypertensives as needed (8) Hypothyroid Code(s): E03.9 - HYPOTHYROIDISM, UNSPECIFIED Status: Chronic Comment: stable - Plan * . Review of Systems - Review of Systems Gastrointestinal: Abdominal Pain, Diarrhea. negative: Nausea, Vomiting, Constipation, Melena, Hematochezia Genitourinary: negative: Dysuria, Frequency, Incontinence, Hematuria, Retention - Medications/Allergies Allergies/Adverse Reactions: Allergies Allergy/AdvReac Type Severity Reaction Status Date / Time meperidine [From Demerol] Allergy Hives Verified 01/29/19 21:40 chlorpromazine AdvReac Verified 01/31/19 17:18 [From Thorazine] Medications: Current Medications Acetaminophen (Tylenol) 650 mg PO Q4H PRN PRN Reason: Headache/Fever/Mild Pain (1-3) Last Admin: 01/30/19 03:56 Dose: 650 mg Dextrose/Water (Dextrose 50%) 25 gm SLOW IVP PRN PRN PRN Reason: Hypoglycemia Glucagon (Glucagon) 1 mg IM PRN PRN PRN Reason: Hypoglycemia Glycerin (Adult Glycerin) [address] DAILY [facility] Last Admin: 02/03/19 08:59 Dose: 1 supp Hydralazine HCl (Apresoline) 10 mg SLOW IVP Q4H PRN PRN Reason: Hypertension Last Admin: 02/03/19 16:30 Dose: 10 mg Dextrose/Water (D5w) 1,000 mls @ 0 mls/hr IV .Q0M PRN PRN Reason: Hypoglycemia Metronidazole 500 mg/ Device 100 mls @ 100 mls/hr IVPB Q8HR [facility] Insulin Human Lispro (Humalog) 0 units SC .MILD SLIDING SCALE PRN PRN Reason: Mild Correctional Scale Last Admin: 02/01/19 18:15 Dose: 2 unit Insulin Human Lispro (Humalog) 0 units SC .BEDTIME SLIDING SC PRN PRN Reason: Bedtime Correctional Scale Ketorolac Tromethamine (Toradol) 15 mg IVP Q6H PRN PRN Reason: Pain Stop: 02/04/19 10:20 Last Admin: 02/03/19 16:30 Dose: 15 mg Lidocaine (Lidoderm 5% Patch) 1 patch TD Q24HR [facility] Last Admin: 02/03/19 15:52 Dose: 1 patch Methylcellulose (Citrucel) 500 mg PO DAILY [facility] Last Admin: 02/03/19 12:16 Dose: 500 mg Methylnaltrexone Williamson (Relistor) 12 mg SC DAILY [facility] Last Admin: 02/03/19 09:00 Dose: 12 mg Metoclopramide HCl (Reglan) 10 mg IVP Q8H PRN PRN Reason: Nausea/Vomiting Last Admin: 02/03/19 05:33 Dose: 10 mg Miscellaneous Medication (Lidocaine Patch Removal) 1 each TOP 0400 [facility] Last Admin: 02/03/19 04:09 Dose: 1 each Morphine Sulfate (Morphine) 2 mg SLOW IVP Q4H PRN PRN Reason: Pain Last Admin: 01/30/19 14:57 Dose: 2 mg Ondansetron HCl (Zofran) 8 mg IVP Q8H [facility] Last Admin: 02/03/19 15:47 Dose: 8 mg Pantoprazole Sodium (Protonix) 40 mg IVP DAILY [facility] Last Admin: 02/03/19 09:02 Dose: 40 mg Polyethylene Glycol (Miralax) 17 gm PO BID [facility] Last Admin: 02/03/19 09:03 Dose: Not Given Saccharomyces Boulardii (Florastor) 250 mg PO DAILY [facility] Last Admin: 02/03/19 09:00 Dose: 250 mg Sodium Chloride (Flush - Normal Saline) 10 ml IVF Q12HR [facility] Last Admin: 02/03/19 09:03 Dose: Not Given Sodium Chloride (Flush - Normal Saline) 10 ml IVF PRN PRN PRN Reason: Saline Flush Vancomycin HCl (First Vancomycin) 250 mg PO QID [facility] Zolpidem Tartrate (Ambien) 5 mg PO HSPRN PRN PRN Reason: Insomnia Last Admin: 02/02/19 20:47 Dose: 5 mg
[2019-02-03] MEDS ORDERED: Vancomycin HCl 25 MG/ML Oral PO SCH (19:30)
[2019-02-03] MEDS: Vancomycin HCl 25 MG/ML Oral PO SCH (20:35)
--- NOTE | 2019-02-03 20:43 | PRG ---
DATE OF SERVICE: 02/03/2019 REASON FOR CONSULTATION: Obstipation, diarrhea. SUBJECTIVE: Last night, the patient had increased nausea and vomiting with dinner, that continued until this morning, and at the time of evaluation this afternoon, she was continued to have intermittent episodes of nausea and vomiting with nonbloody emesis. She continues to have generalized abdominal aching, but the pain is improved when compared to previous. However, she does continue to have approximately 7 to 10 liquid bowel movements per day. That is similar to the frequency she had when she was prior to being treated for Clostridium difficile colitis. Currently, she denies any fevers, chills, or GI bleeding. OBJECTIVE: VITAL SIGNS: Temperature 99.2, pulse 62, blood pressure 188/83, respiratory rate 18, saturating 98% on room air. GENERAL: The patient is lying in bed, in no acute distress. Alert and oriented x4. CARDIOVASCULAR: Regular rate and rhythm. RESPIRATORY: Clear to auscultation bilaterally. ABDOMEN: Hyperactive bowel sounds. Soft, nondistended. Mild tenderness to palpation in all abdominal quadrants. EXTREMITIES: No cyanosis, clubbing, or edema. LABORATORY DATA: CBC with a white blood cell count of 7.6, hemoglobin 9.4, hematocrit 29.5, platelets 228. Chemistry with a sodium of 142, potassium 3.3, chloride 110, CO2 of 24, BUN 15, creatinine 0.58, glucose 124. Microbiology is positive for C difficile antigen, but negative for toxin. IMAGING DATA: No current GI imaging is available for review. ASSESSMENT AND PLAN: The patient is a 68-year-old female with past medical history of atrial fibrillation/atrial flutter, status post ablation, gastroesophageal reflux disease, nephrolithiasis, diabetes, hyperlipidemia, hypertension, hypothyroidism, and recent episode of Clostridium difficile, who initially presented with obstipation, but upon treatment of that, is now having increased diarrhea consistent with a recurrence of her Clostridium difficile colitis. 1. Obstipation. The patient initially presented with decreased frequency of bowel movements as well as hard to pass bowel movements for approximately 2 to 3 weeks prior to admission. With the institution of MiraLAX, Fleet Enema x1, mineral oil enema x1, glycerin suppositories, and methylnaltrexone, she was able to have relief in terms of her constipation, but now having numerous frequent bowel movements. Infectious stool studies were positive for Clostridium difficile and given her incomplete treatment of Clostridium difficile colitis prior to admission, this is a more likely explanation as to her current clinical status. a. Recommendations; would discontinue MiraLAX, methylnaltrexone, and glycerin suppositories in light of improvement of her constipation and active Clostridium difficile colitis. 2. Clostridium difficile colitis. The patient initially presented with obstipation with inability to have a bowel movement for approximately 2 to 3 weeks prior to admission, but worsening over 4 to 5 days prior to. With more conservative management with osmotic laxatives, enemas, suppositories, and opioid receptor blockers within the gut, she responded well to treatment. However, for the last 24 to 48 hours, she has been having approximately 7 to 10 liquid bowel movements per day accompanied with increased nausea, vomiting, and generalized abdominal pain. Given her recent episode of Clostridium difficile colitis and incomplete treatment for this condition (she was only on oral vancomycin x10 days), a recurrence of her Clostridium difficile is likely. a. Recommendations; would place the patient on oral vancomycin 250 mg q.i.d., given her advanced age and presence of C diff in her stool. b. Would discontinue all the constipation regimens as above. c. Would attempt to minimize narcotic administration. d. Continue with aggressive antiemetic support. We will continue to follow. Please call with any questions. Job ID: [id number]
[2019-02-03] MEDS: metroNIDAZOLE 500 MG in Premix Bag 1 BAG IVPB SCH (21:27)
[2019-02-04] MEDS: Ondansetron PF 4 MG/2 ML Vial IVP SCH ×3 (00:24→15:48)
[2019-02-04] MEDS: Zolpidem Tartrate 5 MG TAB PO PRN ×2 (00:25→22:25)
[2019-02-04] MEDS: Lidocaine Patch Removal TOP SCH (04:03)
[2019-02-04] MEDS: Metoclopramide HCl 10 MG/2 ML VIAL IVP PRN ×3 (04:03→20:38)
[2019-02-04] MEDS: Ketorolac Tromethamine 30 MG/ML VIAL IVP PRN (04:03)
[2019-02-04] MEDS: metroNIDAZOLE 500 MG in Premix Bag 1 BAG IVPB SCH (06:08)
[2019-02-04 06:37] LABS: #Eosinphils 0.1 thou/uL (0.0-0.7); #Monocytes 0.5 thou/uL (0.11-0.59); #Neutrophils 4.9 thou/uL (1.40-6.50); %Basophils 0.6 % (0.0-1.0); %Eosinophils 1.4 % (0.0-10.0); %Lymphocytes 15.9 % (21.0-51.0); %Monocytes 7.5 % (0.0-10.0); %Neutrophils 74.6 % (42.0-75.0); Hemoglobin 9.5 g/dL (12.0-16.0); Mean Corpuscular HGB CONC 31.6 g/dL (32.0-36.0); Mean Corpuscular Hemoglobin 29.1 pg (27.0-31.0); Platelet Count 222 thou/uL (130-400); RBC Distribution Width 13.4 % (11.5-14.5); Red Blood Cell (RBC) Count 3.28 mill/uL (4.20-5.40); White Blood Cell (WBC) Count 6.5 thou/uL (4.8-10.8)
[2019-02-04 06:54] LABS: Anion Gap 13 mmol/L (10-20); BUN (Urea Nitrogen) 13 mg/dL (9.8-20.1); Calc. Creatinine Clearance 84 mL/min (70-130); Calcium 8.1 mg/dL (7.8-10.44); Carbon Dioxide 22 mmol/L (23-31); Chloride 107 mmol/L (98-107); Estimated GFR-MDRD Greater than 90; Glucose 85 mg/dL (80-115); Sodium 139 mmol/L (136-145)
[2019-02-04 06:58] LABS: Potassium 2.9 mmol/L (3.5-5.1)
[2019-02-04] MEDS: Saccharomyces boulardii 250 MG CAP PO SCH (08:37)
[2019-02-04] MEDS: Vancomycin HCl 25 MG/ML Oral PO SCH ×4 (08:37→20:39)
[2019-02-04] MEDS: Pantoprazole 40 MG VIAL IVP SCH (08:39)
[2019-02-04] MEDS: Citrucel 500 MG TAB PO SCH (08:40)
[2019-02-04] MEDS: Potassium Chloride 20 MEQ in Premix Bag 1 BAG IVPB SCH ×2 (10:23→10:26)
--- NOTE | 2019-02-04 12:06 | PDOC.PN ---
- Subjective Encounter Start Date: 02/04/19 Encounter Start Time: 12:00 Pt seen for followup re: clostridium difficile colitis. Feels better today. Diarrhea improving. - Objective Resuscitation Status - Order Detail: 01/29/19 20:26 Resuscitation Status Routine Resuscitation Status: FULL: Full Resuscitation Discussed with: patient and MAR Reviewed: Yes Vital Signs & Weight: Vital Signs (12 hours) Temp Pulse Resp BP BP BP Pulse Ox 02/04/19 11:15 99.1 F 70 18 156/57 H 99 02/04/19 08:51 99 02/04/19 07:28 98.0 F 69 18 168/71 H 99 02/04/19 04:03 98.6 F 61 16 157/51 H 98 02/04/19 00:58 98.2 F 76 189 H 171/95 H 95 Weight Admit Weight 114 lb 2 oz Weight 114 lb 2 oz I&O: 02/03/19 02/04/19 02/05/19 06:59 06:59 06:59 Intake Total 2025 1617 Balance 2025 1617 Result Diagrams: 02/05/19 05:51 02/05/19 05:51 Additional Labs: Accuchecks 02/04/19 02/04/19 02/03/19 11:20 06:09 20:52 POC Glucose 98 87 124 H 02/03/19 16:04 POC Glucose 104 Labs reviewed by me Phys Exam - Physical Examination Constitutional: NAD HEENT: moist MMs Neck: supple Respiratory: clear to auscultation bilateral Cardiovascular: RRR Gastrointestinal: soft Neurological: moves all 4 limbs Psychiatric: normal affect Dx/Plan (1) Clostridium difficile colitis Status: Acute Comment: continue enteral vancomycin (2) Intractable abdominal pain Code(s): R10.9 - UNSPECIFIED ABDOMINAL PAIN Status: Acute Comment: Improved (3) Hypokalemia Code(s): E87.6 - HYPOKALEMIA Status: Acute Comment: replace potassium (4) CAD (coronary artery disease) Code(s): I25.10 - ATHSCL HEART DISEASE OF [place] CORONARY ARTERY W/O ANG PCTRS Status: Chronic Comment: stable (5) Depression Code(s): F32.9 - MAJOR DEPRESSIVE DISORDER, SINGLE EPISODE, UNSPECIFIED Status : Chronic Comment: stable (6) Diabetes Code(s): E11.9 - TYPE 2 DIABETES MELLITUS WITHOUT COMPLICATIONS Status: Chronic Comment: controlled (7) HTN (hypertension) Code(s): I10 - ESSENTIAL (PRIMARY) HYPERTENSION Status: Chronic Comment: resume home medications, titrate antihypertensives as needed (8) Hypothyroid Code(s): E03.9 - HYPOTHYROIDISM, UNSPECIFIED Status: Chronic Comment: stable - Plan * . Review of Systems - Review of Systems Cardiovascular: negative: chest pain, palpitations, orthopnea, paroxysmal nocturnal dyspnea, edema, light headedness, other Gastrointestinal: Nausea, Diarrhea. negative: Vomiting, Abdominal Pain, Constipation, Melena, Hematochezia - Medications/Allergies Allergies/Adverse Reactions: Allergies Allergy/AdvReac Type Severity Reaction Status Date / Time meperidine [From Demerol] Allergy Hives Verified 01/29/19 21:40 chlorpromazine AdvReac Verified 01/31/19 17:18 [From Thorazine] Medications: Current Medications Acetaminophen (Tylenol) 650 mg PO Q4H PRN PRN Reason: Headache/Fever/Mild Pain (1-3) Last Admin: 01/30/19 03:56 Dose: 650 mg Dextrose/Water (Dextrose 50%) 25 gm SLOW IVP PRN PRN PRN Reason: Hypoglycemia Glucagon (Glucagon) 1 mg IM PRN PRN PRN Reason: Hypoglycemia Hydralazine HCl (Apresoline) 10 mg SLOW IVP Q4H PRN PRN Reason: Hypertension Last Admin: 02/03/19 16:30 Dose: 10 mg Dextrose/Water (D5w) 1,000 mls @ 0 mls/hr IV .Q0M PRN PRN Reason: Hypoglycemia Potassium Chloride 20 meq/ (Device) 100 mls @ 50 mls/hr IVPB Q2H [facility] Stop: 02/04/19 13:29 Last Admin: 02/04/19 10:26 Dose: 100 mls Insulin Human Lispro (Humalog) 0 units SC .MILD SLIDING SCALE PRN PRN Reason: Mild Correctional Scale Last Admin: 02/01/19 18:15 Dose: 2 unit Insulin Human Lispro (Humalog) 0 units SC .BEDTIME SLIDING SC PRN PRN Reason: Bedtime Correctional Scale Lidocaine (Lidoderm 5% Patch) 1 patch TD Q24HR [facility] Last Admin: 02/03/19 15:52 Dose: 1 patch Methylcellulose (Citrucel) 500 mg PO DAILY [facility] Last Admin: 02/04/19 08:40 Dose: 500 mg Metoclopramide HCl (Reglan) 10 mg IVP Q8H PRN PRN Reason: Nausea/Vomiting Last Admin: 02/04/19 04:03 Dose: 10 mg Miscellaneous Medication (Lidocaine Patch Removal) 1 each TOP 0400 [facility] Last Admin: 02/04/19 04:03 Dose: Not Given Morphine Sulfate (Morphine) 2 mg SLOW IVP Q4H PRN PRN Reason: Pain Last Admin: 01/30/19 14:57 Dose: 2 mg Ondansetron HCl (Zofran) 8 mg IVP Q8H [facility] Last Admin: 02/04/19 08:40 Dose: 8 mg Pantoprazole Sodium (Protonix) 40 mg IVP DAILY [facility] Last Admin: 02/04/19 08:39 Dose: 40 mg Saccharomyces Boulardii (Florastor) 250 mg PO DAILY [facility] Last Admin: 02/04/19 08:37 Dose: 250 mg Sodium Chloride (Flush - Normal Saline) 10 ml IVF Q12HR [facility] Last Admin: 02/04/19 08:38 Dose: 10 ml Sodium Chloride (Flush - Normal Saline) 10 ml IVF PRN PRN PRN Reason: Saline Flush Last Admin: 02/04/19 06:08 Dose: 10 ml Vancomycin HCl (First Vancomycin) 250 mg PO QID [facility] Last Admin: 02/04/19 08:37 Dose: 250 mg Zolpidem Tartrate (Ambien) 5 mg PO HSPRN PRN PRN Reason: Insomnia Last Admin: 02/04/19 00:25 Dose: 5 mg
[2019-02-04] MEDS: Lidocaine 5% Patch TD SCH (15:48)
--- NOTE | 2019-02-04 16:07 | PRG ---
DATE OF SERVICE: 02/04/2019 REASON FOR CONSULTATION: Obstipation, diarrhea. SUBJECTIVE: The patient underwent stool testing recently with the findings of Clostridium difficile antigen, but not necessarily the toxin and was ultimately placed on oral vancomycin therapy for treatment of this condition. Since being placed on the oral vancomycin, she states that she has had a decrease in her abdominal pain, nausea, and vomiting, but continues to have approximately 3 to 6 semi-solid or liquid bowel movements per day. Currently, she denies any nausea, vomiting, fevers, chills, or GI bleeding. OBJECTIVE: VITAL SIGNS: Temperature 99.1, pulse 70, blood pressure 156/57, respiratory rate 18, saturating 99% on room air. GENERAL: The patient is lying in bed, in no acute distress. Alert and oriented x4. CARDIOVASCULAR: Regular rate and rhythm. RESPIRATORY: Clear to auscultation bilaterally. ABDOMEN: Normoactive bowel sounds. Soft, nondistended, mild tenderness to palpation in all abdominal quadrants. EXTREMITIES: No cyanosis, clubbing, or edema. LABORATORY DATA: CBC with a white blood cell count of 6.5, hemoglobin 9.5, hematocrit 30.2, platelets 222. Chemistry with a sodium of 139, potassium 2.9, chloride 107, CO2 of 22, BUN 13, creatinine 0.51, glucose 85. IMAGING DATA: No current GI imaging is available for review. ASSESSMENT AND PLAN: The patient is a 68-year-old female with past medical history of atrial fibrillation/atrial flutter status post ablation, gastroesophageal reflux disease, nephrolithiasis, diabetes, hyperlipidemia, hypertension, hypothyroidism, and recent episode of Clostridium difficile colitis, who initially presented with obstipation, but upon resolution of this, is now having diarrhea consistent with a recurrence of her Clostridium difficile colitis. Clostridium difficile colitis. The patient initially presented with obstipation and inability to have a bowel movement for approximately 2 to 3 weeks prior to admission, but worsening over the last 4 to 5 days prior to admission to the hospital with more conservative management with osmotic laxatives, enemas, suppositories, and an opioid receptor esme within the gut. She responded well to treatment. However, she began to have increasing amounts of liquid diarrhea with infectious stool studies positive for Clostridium difficile antigen, but negative for the toxin itself. Given her increased abdominal pain, nausea, vomiting, diarrhea as well as the presence of the C. diff in her stool and incomplete treatment as an outpatient, I would render this consistent with a recurrence of her question difficile colitis. RECOMMENDATIONS: 1. Would continue the patient on oral vancomycin 250 mg 4 times daily. 2. Would discontinue all constipation regimen as above. 3. Would attempt to minimize narcotic administration. 4. Continue with aggressive antiemetic support. We will continue to follow. Please call with any questions. Job ID: [id number]
[2019-02-04] MEDS: metFORMIN 500 MG TAB PO SCH (17:35)
[2019-02-04] MEDS: Atorvastatin Calcium 20 MG TAB PO SCH (20:37)
[2019-02-04] MEDS ORDERED: Amlodipine 5 MG TAB PO SCH (21:00)
[2019-02-05] MEDS: Ondansetron PF 4 MG/2 ML Vial IVP SCH ×3 (00:30→16:45)
[2019-02-05] MEDS: Lidocaine Patch Removal TOP SCH (04:00)
[2019-02-05] MEDS: Levothyroxine Sodium 75 MCG TAB PO SCH (05:18)
[2019-02-05 06:12] LABS: #Eosinphils 0.2 thou/uL (0.0-0.7); #Monocytes 0.6 thou/uL (0.11-0.59); #Neutrophils 3.9 thou/uL (1.40-6.50); %Basophils 0.6 % (0.0-1.0); %Lymphocytes 18.1 % (21.0-51.0); %Neutrophils 68.2 % (42.0-75.0); Hemoglobin 10.4 g/dL (12.0-16.0); Mean Corpuscular HGB CONC 32.7 g/dL (32.0-36.0); Mean Corpuscular Hemoglobin 29.7 pg (27.0-31.0); Mean Corpuscular Volume 90.7 fL (78.0-98.0); Mean Platelet Volume 7.7 fL (7.4-10.4); Platelet Count 255 thou/uL (130-400); RBC Distribution Width 13.3 % (11.5-14.5); Red Blood Cell (RBC) Count 3.51 mill/uL (4.20-5.40); White Blood Cell (WBC) Count 5.7 thou/uL (4.8-10.8)
[2019-02-05 06:32] LABS: Anion Gap 11 mmol/L (10-20); BUN (Urea Nitrogen) 10 mg/dL (9.8-20.1); Calc. Creatinine Clearance 79 mL/min (70-130); Calcium 8.1 mg/dL (7.8-10.44); Carbon Dioxide 27 mmol/L (23-31); Chloride 103 mmol/L (98-107); Estimated GFR-MDRD Greater than 90; Glucose 128 mg/dL (80-115); Potassium 3.1 mmol/L (3.5-5.1); Sodium 138 mmol/L (136-145)
[2019-02-05] MEDS: Pantoprazole 40 MG VIAL IVP SCH (08:15)
[2019-02-05] MEDS: Saccharomyces boulardii 250 MG CAP PO SCH (08:16)
[2019-02-05] MEDS: Citrucel 500 MG TAB PO SCH (08:16)
[2019-02-05] MEDS: Ramipril 5 MG CAP PO SCH (08:17)
[2019-02-05] MEDS: metFORMIN 500 MG TAB PO SCH ×2 (08:18→16:43)
[2019-02-05] MEDS: Vancomycin HCl 25 MG/ML Oral PO SCH ×3 (09:29→16:46)
[2019-02-05] MEDS ORDERED: Potassium Chloride 40 MEQ in Sodium Chloride 0.9% 250 ML 250 ML IVPB SCH (11:15)
[2019-02-05] MEDS: Metoclopramide HCl 10 MG/2 ML VIAL IVP PRN ×2 (11:38→20:22)
[2019-02-05] MEDS: Morphine 2 MG/ML SYRINGE SLOW IVP PRN (12:01)
--- NOTE | 2019-02-05 13:54 | PDOC.PN ---
- Subjective Encounter Start Date: 02/05/19 Encounter Start Time: 10:20 Pt seen for followup re: C. diff colitis. Feels better. - Objective Resuscitation Status - Order Detail: 01/29/19 20:26 Resuscitation Status Routine Resuscitation Status: FULL: Full Resuscitation Discussed with: patient and [place] Reviewed: Yes Vital Signs & Weight: Vital Signs (12 hours) Temp Pulse Resp BP BP BP Pulse Ox 02/05/19 11:40 98.3 F 68 16 171/73 H 99 02/05/19 08:17 171/73 H 02/05/19 07:42 98.6 F 68 16 171/73 H 99 Weight Admit Weight 114 lb 2 oz Weight 114 lb 2 oz I&O: 02/04/19 02/05/19 02/06/19 06:59 06:59 06:59 Intake Total 1618 1126 Balance 1618 1126 Result Diagrams: 02/05/19 05:51 02/05/19 05:51 Additional Labs: Accuchecks 02/05/19 02/05/19 02/04/19 11:28 05:14 19:52 POC Glucose 179 H 135 H 166 H 02/04/19 16:46 POC Glucose 89 Dx/Plan (1) Clostridium difficile colitis Status: Acute Comment: on enteral vancomycin (2) Intractable abdominal pain Code(s): R10.9 - UNSPECIFIED ABDOMINAL PAIN Status: Acute Comment: Improved (3) Hypokalemia Code(s): E87.6 - HYPOKALEMIA Status: Acute Comment: continue to replace potassium (4) CAD (coronary artery disease) Code(s): I25.10 - ATHSCL HEART DISEASE OF [place] CORONARY ARTERY W/O ANG PCTRS Status: Chronic Comment: stable (5) Depression Code(s): F32.9 - MAJOR DEPRESSIVE DISORDER, SINGLE EPISODE, UNSPECIFIED Status : Chronic Comment: stable (6) Diabetes Code(s): E11.9 - TYPE 2 DIABETES MELLITUS WITHOUT COMPLICATIONS Status: Chronic Comment: controlled (7) HTN (hypertension) Code(s): I10 - ESSENTIAL (PRIMARY) HYPERTENSION Status: Chronic Comment: increase amlodipine dose (8) Hypothyroid Code(s): E03.9 - HYPOTHYROIDISM, UNSPECIFIED Status: Chronic Comment: stable - Plan * . Review of Systems - Review of Systems Cardiovascular: negative: chest pain, palpitations, orthopnea, paroxysmal nocturnal dyspnea, edema, light headedness Gastrointestinal: Diarrhea. negative: Nausea, Vomiting, Abdominal Pain, Constipation, Melena, Hematochezia - Medications/Allergies Allergies/Adverse Reactions: Allergies Allergy/AdvReac Type Severity Reaction Status Date / Time meperidine [From Demerol] Allergy Hives Verified 01/29/19 21:40 chlorpromazine AdvReac Verified 01/31/19 17:18 [From Thorazine] Medications: Current Medications Acetaminophen (Tylenol) 650 mg PO Q4H PRN PRN Reason: Headache/Fever/Mild Pain (1-3) Last Admin: 01/30/19 03:56 Dose: 650 mg Amlodipine Besylate (Norvasc) 5 mg PO HS [facility] Last Admin: 02/04/19 20:38 Dose: 5 mg Atorvastatin Calcium (Lipitor) 20 mg PO [facility] Last Admin: 02/04/19 20:37 Dose: 20 mg Dextrose/Water (Dextrose 50%) 25 gm SLOW IVP PRN PRN PRN Reason: Hypoglycemia Glucagon (Glucagon) 1 mg IM PRN PRN PRN Reason: Hypoglycemia Hydralazine HCl (Apresoline) 10 mg SLOW IVP Q4H PRN PRN Reason: Hypertension Last Admin: 02/03/19 16:30 Dose: 10 mg Dextrose/Water (D5w) 1,000 mls @ 0 mls/hr IV .Q0M PRN PRN Reason: Hypoglycemia Insulin Human Lispro (Humalog) 0 units SC .MILD SLIDING SCALE PRN PRN Reason: Mild Correctional Scale Last Admin: 02/01/19 18:15 Dose: 2 unit Insulin Human Lispro (Humalog) 0 units SC .BEDTIME SLIDING SC PRN PRN Reason: Bedtime Correctional Scale Levothyroxine Sodium (Synthroid) 75 mcg PO 0600 [facility] Last Admin: 02/05/19 05:18 Dose: 75 mcg Lidocaine (Lidoderm 5% Patch) 1 patch TD Q24HR [facility] Last Admin: 02/04/19 15:48 Dose: 1 patch Metformin HCl (Glucophage) 500 mg PO BID[facility] Last Admin: 02/05/19 08:18 Dose: 500 mg Methylcellulose (Citrucel) 500 mg PO DAILY [facility] Last Admin: 02/05/19 08:16 Dose: 500 mg Metoclopramide HCl (Reglan) 10 mg IVP Q8H PRN PRN Reason: Nausea/Vomiting Last Admin: 02/05/19 11:38 Dose: 10 mg Metoprolol Succinate (Toprol Xl) 25 mg PO HS [facility] Last Admin: 02/04/19 20:37 Dose: 25 mg Miscellaneous Medication (Lidocaine Patch Removal) 1 each TOP 0400 [facility] Last Admin: 02/05/19 04:00 Dose: Not Given Morphine Sulfate (Morphine) 2 mg SLOW IVP Q4H PRN PRN Reason: Pain Last Admin: 02/05/19 12:01 Dose: 2 mg Ondansetron HCl (Zofran) 8 mg IVP Q8H [facility] Last Admin: 02/05/19 08:12 Dose: 8 mg Pantoprazole Sodium (Protonix) 40 mg IVP DAILY [facility] Last Admin: 02/05/19 08:15 Dose: 40 mg Ramipril (Altace) 10 mg PO DAILY [facility] Last Admin: 02/05/19 08:17 Dose: 10 mg Saccharomyces Boulardii (Florastor) 250 mg PO DAILY [facility] Last Admin: 02/05/19 08:16 Dose: 250 mg Sodium Chloride (Flush - Normal Saline) 10 ml IVF Q12HR [facility] Last Admin: 02/05/19 08:13 Dose: 10 ml Sodium Chloride (Flush - Normal Saline) 10 ml IVF PRN PRN PRN Reason: Saline Flush Last Admin: 02/05/19 00:30 Dose: 10 ml Vancomycin HCl (First Vancomycin) 250 mg PO QID [facility] Last Admin: 02/05/19 12:06 Dose: 250 mg Zolpidem Tartrate (Ambien) 5 mg PO HSPRN PRN PRN Reason: Insomnia Last Admin: 02/04/19 22:25 Dose: 5 mg
[2019-02-05] MEDS ORDERED: ISOVUE-370 76%-LOCM 1 ML ONE (15:44)
--- NOTE | 2019-02-05 16:32 | CT ---
FCT abdomen and pelvis with IV contrast. Oral contrast was administered. INDICATIONS: Abdominal pain COMPARISON: CT abdomen and pelvis 01/29/2019 FINDINGS: Lung bases are clear Liver, spleen, and pancreas appear unremarkable. Stomach and duodenum appear unremarkable. Adrenal glands appear normal. Kidneys appear unremarkable. Collecting structures and urinary bladder appear unremarkable. Small bowel loops show nonspecific distention without dilatation. Appendix is not identified. Colon continues to show moderate volume stool throughout. There continues to be evidence of mural thi ckening in the left colon. This was described on the prior study suggesting colitis. Aorta is normal caliber. No evidence of retroperitoneal or mesenteric adenopathy. There is small amount of free fluid in the deep pelvis. Prostatic calcification. Subcutaneous tissues, abdominal wall, and muscular structures appear unremarkable. Degenerative spine changes again noted. IMPRESSION: 1. Prominent stool throughout the colon although the dual volume is less than on the prior study. The re continues to be evidence of mural thickening the left colon again suggesting colitis. 2. Smaller free fluid in the deep pelvis which is occurred since prior study. 3. No other significant interval change
[2019-02-05] MEDS: Lidocaine 5% Patch TD SCH (16:41)
[2019-02-05] MEDS: Pancrelipase DR 12000 1 CAP PO SCH (16:45)
[2019-02-05] MEDS: Amlodipine 10 MG TAB PO SCH (20:22)
[2019-02-05] MEDS: Atorvastatin Calcium 20 MG TAB PO SCH (20:22)
--- NOTE | 2019-02-05 22:53 | PRG ---
DATE OF SERVICE: 02/05/2019 REASON FOR CONSULTATION: Obstipation, diarrhea. SUBJECTIVE: The patient states that she is feeling better today with decreased episodes of nausea and vomiting during the day, but did have one episode of vomiting this morning with minimal amounts of nonbloody emesis. She states that her abdominal pain continues, but is relatively unchanged. She continues to have frequent semi-solid to liquid bowel movements with approximately 6-8 within the last 24 hours. Currently, she denies any fevers, chills, or GI bleeding. OBJECTIVE: VITAL SIGNS: Temperature 98.5, pulse 71, blood pressure 170/75, respiratory rate 18, saturating 100% on room air. GENERAL: The patient is sitting at bedside, in chair, in no acute distress. Alert and oriented x4. CARDIOVASCULAR: Regular rate and rhythm. RESPIRATORY: Clear to auscultation bilaterally. ABDOMEN: Normoactive bowel sounds. Soft, nondistended, mild tenderness to palpation in all abdominal quadrants. EXTREMITIES: No cyanosis, clubbing, or edema. LABORATORY DATA: CBC with a white blood cell count of 5.7, hemoglobin 10.4, hematocrit 31.9, platelets 255. Chemistry with a sodium of 138, potassium 3.1, chloride 103, CO2 of 27, BUN 10, creatinine 0.54, glucose 128. IMAGING DATA: CT of the abdomen and pelvis was obtained on 02/05/2019, which showed prominent stool throughout the colon, but on comparison to prior imaging, is decreased in volume. There continues to be evidence of mural thickening of the left colon again suggesting colitis. Smaller amount of free fluid in the deep pelvis was also improved when compared to prior study and there were no other significant interval changes. ASSESSMENT AND PLAN: The patient is a 68-year-old female with past medical history of atrial fibrillation/atrial flutter, status post ablation, gastroesophageal reflux disease, nephrolithiasis, diabetes, hyperlipidemia, hypertension, hypothyroidism, and recent episode of Clostridium difficile colitis prior to this admission, initially presenting with obstipation, but upon resolution is now having recurrence of her Clostridium difficile colitis. Clostridium difficile colitis: The patient initially presented with obstipation/constipation with the inability to have a regular bowel movement for approximately 2 to 3 weeks prior to admission, but worsening over the last 4 to 5 days prior to admission. She responded well to more conservative management with osmotic laxatives, enemas, suppositories and opiate receptor blockers within the gut. However, she was placed on antibiotic therapy during this hospitalization and with her response to treatment for constipation, is now having significant diarrhea with infectious stool studies again positive for the Clostridium difficile antigen. She was ultimately placed on oral vancomycin 250 mg every 6 hours and is slowly improving while on this regimen. However, upon further questioning the patient today, she also stated that she had had some steatorrhea in her stool, raising the concern for pancreatic exocrine insufficiency and/or small intestinal bacterial overgrowth. RECOMMENDATIONS: 1. Would continue the patient on oral vancomycin 250 mg 4 times daily. 2. Would add the patient back on Naloxegol 25 mg daily. 3. Would attempt to minimize all narcotic administration. 4. We will place the patient on pancreatic enzyme supplementation t.i.d. given her recent steatorrhea. 5. Continue with aggressive antiemetic support. We will continue to follow. Please call with any questions. Job ID: [id number]
[2019-02-06] MEDS: Ondansetron PF 4 MG/2 ML Vial IVP SCH ×3 (00:23→16:31)
[2019-02-06] MEDS: Vancomycin HCl 25 MG/ML Oral PO SCH ×5 (00:27→23:13)
[2019-02-06] MEDS: Levothyroxine Sodium 75 MCG TAB PO SCH (05:23)
[2019-02-06] MEDS: Lidocaine Patch Removal TOP SCH (05:28)
[2019-02-06] MEDS: Metoclopramide HCl 10 MG/2 ML VIAL IVP PRN (05:28)
[2019-02-06] MEDS: Ramipril 5 MG CAP PO SCH (08:29)
[2019-02-06] MEDS: Saccharomyces boulardii 250 MG CAP PO SCH ×2 (08:29→20:43)
[2019-02-06] MEDS: Pancrelipase DR 12000 1 CAP PO SCH ×3 (08:29→16:32)
[2019-02-06] MEDS: Pantoprazole 40 MG VIAL IVP SCH (08:30)
[2019-02-06] MEDS: metFORMIN 500 MG TAB PO SCH ×2 (08:30→16:31)
[2019-02-06] MEDS: Citrucel 500 MG TAB PO SCH (08:30)
--- NOTE | 2019-02-06 14:17 | PDOC.PN ---
- Subjective Encounter Start Date: 02/06/19 Encounter Start Time: 09:00 Pt seen for followup re: c. diff colitis. Feels much better. - Objective Resuscitation Status - Order Detail: 01/29/19 20:26 Resuscitation Status Routine Resuscitation Status: FULL: Full Resuscitation Discussed with: patient and SANTIAGO Reviewed: Yes Vital Signs & Weight: Vital Signs (12 hours) Temp Pulse Resp BP BP Pulse Ox 02/06/19 12:03 98.5 F 70 16 139/66 97 02/06/19 08:42 99 02/06/19 08:29 148/75 H 02/06/19 07:46 98.6 F 75 16 148/75 H 99 Weight Admit Weight 114 lb 2 oz Weight 114 lb 2 oz I&O: 02/05/19 02/06/19 02/07/19 06:59 06:59 06:59 Intake Total 1126 1720 Balance 1126 1720 Result Diagrams: 02/05/19 05:51 02/05/19 05:51 Additional Labs: Accuchecks 02/06/19 02/06/19 02/05/19 11:42 05:24 20:06 POC Glucose 157 H 110 136 H 02/05/19 17:58 POC Glucose 98 labs reviewed by me Phys Exam - Physical Examination Constitutional: NAD HEENT: moist MMs Neck: supple Respiratory: clear to auscultation bilateral Cardiovascular: RRR Gastrointestinal: soft Neurological: moves all 4 limbs Psychiatric: normal affect Dx/Plan (1) Clostridium difficile colitis Status: Acute Comment: Improving, on enteral vancomycin (2) Hypokalemia Code(s): E87.6 - HYPOKALEMIA Status: Acute Comment: check potassium level (3) CAD (coronary artery disease) Code(s): I25.10 - ATHSCL HEART DISEASE OF [place] CORONARY ARTERY W/O ANG PCTRS Status: Chronic Comment: stable (4) Depression Code(s): F32.9 - MAJOR DEPRESSIVE DISORDER, SINGLE EPISODE, UNSPECIFIED Status : Chronic Comment: stable (5) Diabetes Code(s): E11.9 - TYPE 2 DIABETES MELLITUS WITHOUT COMPLICATIONS Status: Chronic Comment: controlled (6) HTN (hypertension) Code(s): I10 - ESSENTIAL (PRIMARY) HYPERTENSION Status: Chronic Comment: controlled (7) Hypothyroid Code(s): E03.9 - HYPOTHYROIDISM, UNSPECIFIED Status: Chronic Comment: stable (8) Intractable abdominal pain Code(s): R10.9 - UNSPECIFIED ABDOMINAL PAIN Status: Resolved - Plan * . Review of Systems - Review of Systems Cardiovascular: negative: chest pain, palpitations, orthopnea, paroxysmal nocturnal dyspnea, edema, light headedness Gastrointestinal: negative: Nausea, Vomiting, Abdominal Pain, Diarrhea, Constipation, Melena, Hematochezia - Medications/Allergies Allergies/Adverse Reactions: Allergies Allergy/AdvReac Type Severity Reaction Status Date / Time meperidine [From Demerol] Allergy Hives Verified 01/29/19 21:40 chlorpromazine AdvReac Verified 01/31/19 17:18 [From Thorazine] Medications: Current Medications Acetaminophen (Tylenol) 650 mg PO Q4H PRN PRN Reason: Headache/Fever/Mild Pain (1-3) Last Admin: 01/30/19 03:56 Dose: 650 mg Amlodipine Besylate (Norvasc) 10 mg PO [facility] Last Admin: 02/05/19 20:22 Dose: 10 mg Lipase/Protease/[place]ylase ([place] [id number]) 2 cap PO TID-[facility] Last Admin: 02/06/19 12:27 Dose: 2 cap Atorvastatin Calcium (Lipitor) 20 mg PO [facility] Last Admin: 02/05/19 20:22 Dose: 20 mg Dextrose/Water (Dextrose 50%) 25 gm SLOW IVP PRN PRN PRN Reason: Hypoglycemia Glucagon (Glucagon) 1 mg IM PRN PRN PRN Reason: Hypoglycemia Hydralazine HCl (Apresoline) 10 mg SLOW IVP Q4H PRN PRN Reason: Hypertension Last Admin: 02/03/19 16:30 Dose: 10 mg Dextrose/Water (D5w) 1,000 mls @ 0 mls/hr IV .Q0M PRN PRN Reason: Hypoglycemia Insulin Human Lispro (Humalog) 0 units SC .MILD SLIDING SCALE PRN PRN Reason: Mild Correctional Scale Last Admin: 02/01/19 18:15 Dose: 2 unit Insulin Human Lispro (Humalog) 0 units SC .BEDTIME SLIDING SC PRN PRN Reason: Bedtime Correctional Scale Levothyroxine Sodium (Synthroid) 75 mcg PO 0600 [facility] Last Admin: 02/06/19 05:23 Dose: 75 mcg Lidocaine (Lidoderm 5% Patch) 1 patch TD Q24HR [facility] Last Admin: 02/05/19 16:41 Dose: 1 patch Metformin HCl (Glucophage) 500 mg PO BID-WM [facility] Last Admin: 02/06/19 08:30 Dose: 500 mg Methylcellulose (Citrucel) 500 mg PO DAILY [facility] Last Admin: 02/06/19 08:30 Dose: 500 mg Metoclopramide HCl (Reglan) 10 mg IVP Q8H PRN PRN Reason: Nausea/Vomiting Last Admin: 02/06/19 05:28 Dose: 10 mg Metoprolol Succinate (Toprol Xl) 25 mg PO HS [facility] Last Admin: 02/05/19 20:22 Dose: 25 mg Miscellaneous Medication (Lidocaine Patch Removal) 1 each TOP 0400 [facility] Last Admin: 02/06/19 05:28 Dose: Not Given Miscellaneous Medication (Movantik) 25 mg PO DAILY-AC [facility] Last Admin: 02/06/19 08:28 Dose: 25 mg Morphine Sulfate (Morphine) 2 mg SLOW IVP Q4H PRN PRN Reason: Pain Last Admin: 02/05/19 12:01 Dose: 2 mg Ondansetron HCl (Zofran) 8 mg IVP Q8H [facility] Last Admin: 02/06/19 08:35 Dose: 8 mg Pantoprazole Sodium (Protonix) 40 mg IVP DAILY [facility] Last Admin: 02/06/19 08:30 Dose: 40 mg Ramipril (Altace) 10 mg PO DAILY [facility] Last Admin: 02/06/19 08:29 Dose: 10 mg Saccharomyces Boulardii (Florastor) 250 mg PO BID [facility] Last Admin: 02/06/19 08:29 Dose: 250 mg Sodium Chloride (Flush - Normal Saline) 10 ml IVF Q12HR [facility] Last Admin: 02/06/19 08:30 Dose: 10 ml Sodium Chloride (Flush - Normal Saline) 10 ml IVF PRN PRN PRN Reason: Saline Flush Last Admin: 02/06/19 05:28 Dose: 10 ml Vancomycin HCl (First Vancomycin) 250 mg PO QID [facility] Last Admin: 02/06/19 12:28 Dose: 250 mg Zolpidem Tartrate (Ambien) 5 mg PO HSPRN PRN PRN Reason: Insomnia Last Admin: 02/04/19 22:25 Dose: 5 mg
--- NOTE | 2019-02-06 14:30 | PRG ---
DATE OF SERVICE: 02/06/2019 REASON FOR CONSULTATION: C. diff colitis, nausea, vomiting. SUBJECTIVE: The patient states that she has not had any further episodes of nausea and vomiting since I saw her yesterday. She also states that she had slightly more formed stools in the form of "raising" last night with no further bowel movements today. Lastly, she also states that her abdominal pain has improved somewhat when compared to yesterday. Currently, she denies any nausea, vomiting, fevers, chills, or GI bleeding. OBJECTIVE: VITAL SIGNS: Temperature 98.5, pulse 70, blood pressure 139/66, respiratory rate 16, and saturating 97% on room air. GENERAL: The patient was sitting at bedside, in no acute distress. Alert and oriented x4. CARDIOVASCULAR: Regular rate and rhythm. RESPIRATORY: Clear to auscultation bilaterally. ABDOMEN: Normoactive bowel sounds. Soft, nondistended, mild tenderness to palpation in all abdominal quadrants. EXTREMITIES: No cyanosis, clubbing, or edema. LABORATORY DATA: No current studies are available for review. IMAGING DATA: No current GI imaging is available for review. ASSESSMENT AND PLAN: The patient is a 68-year-old female with past medical history of atrial fibrillation/atrial flutter, status post ablation, gastroesophageal reflux disease, nephrolithiasis, diabetes, hyperlipidemia, hypertension, hypothyroidism, and Clostridium difficile colitis initially presenting with obstipation, but upon resolution of this is now having a recurrence of her Clostridium difficile colitis. Clostridium difficile colitis: The patient initially presented with obstipation/constipation with inability to have a regular bowel movement for approximately 2 to 3 weeks prior to admission, but worsening over the last 4 to 5 days prior to admission. She responded well to more conservative management with osmotic laxative, enemas, suppositories, and opiate receptor blockers, but on approximately day 2 to 3 of management, she began having significantly increased watery bowel movements, raising the concern for recurrence of her Clostridium difficile colitis. Infectious stool studies were again positive for Clostridium difficile antigen, but not necessarily the toxin. After being placed back on oral vancomycin therapy, she has been having improving symptoms over the last 24 hours. During the course of this hospitalization, she also commented that her stool contained grease droplets concerning for steatorrhea. She was then placed on pancreatic enzyme supplements and has been doing well with this particular regimen. RECOMMENDATIONS: 1. We would continue the patient on oral vancomycin 250 mg 4 times daily. 2. We would continue naloxegol 25 mg daily. 3. We would attempt to minimize all narcotic administration. 4. We would continue pancreatic enzyme supplementation t.i.d. with meals. 5. Continue with aggressive antiemetic support. 6. Given improvement in the patient's clinical status and some form to her stools, it is indicative of response to treatment and if not having any further symptoms could be considered for discharge as early as tomorrow. 7. We will continue to follow. Please call with any questions. Job ID: [id number]
[2019-02-06 14:58] LABS: #Eosinphils 0.1 thou/uL (0.0-0.7); #Lymphocytes 1.3 thou/uL (1.20-3.40); #Monocytes 0.7 thou/uL (0.11-0.59); #Neutrophils 4.3 thou/uL (1.40-6.50); %Basophils 0.1 % (0.0-1.0); %Eosinophils 2.1 % (0.0-10.0); %Lymphocytes 19.7 % (21.0-51.0); %Monocytes 11.3 % (0.0-10.0); %Neutrophils 66.8 % (42.0-75.0); Hemoglobin 10.8 g/dL (12.0-16.0); Mean Corpuscular HGB CONC 32.7 g/dL (32.0-36.0); Mean Corpuscular Hemoglobin 29.2 pg (27.0-31.0); Mean Corpuscular Volume 89.5 fL (78.0-98.0); Mean Platelet Volume 7.5 fL (7.4-10.4); Platelet Count 366 thou/uL (130-400); RBC Distribution Width 13.7 % (11.5-14.5); Red Blood Cell (RBC) Count 3.71 mill/uL (4.20-5.40); White Blood Cell (WBC) Count 6.5 thou/uL (4.8-10.8)
[2019-02-06 15:18] LABS: Anion Gap 12 mmol/L (10-20); BUN (Urea Nitrogen) 7 mg/dL (9.8-20.1); Calc. Creatinine Clearance 73 mL/min (70-130); Calcium 8.3 mg/dL (7.8-10.44); Carbon Dioxide 26 mmol/L (23-31); Chloride 103 mmol/L (98-107); Estimated GFR-MDRD Greater than 90; Glucose 186 mg/dL (80-115); Potassium 3.4 mmol/L (3.5-5.1); Sodium 138 mmol/L (136-145)
[2019-02-06] MEDS: Lidocaine 5% Patch TD SCH (16:30)
[2019-02-06] MEDS: Amlodipine 10 MG TAB PO SCH (20:43)
[2019-02-06] MEDS: Atorvastatin Calcium 20 MG TAB PO SCH (20:43)
[2019-02-06] MEDS: Zolpidem Tartrate 5 MG TAB PO PRN (23:13)
[2019-02-07] MEDS: Ondansetron PF 4 MG/2 ML Vial IVP SCH ×3 (00:13→16:53)
[2019-02-07] MEDS: Lidocaine Patch Removal TOP SCH (05:00)
[2019-02-07] MEDS: Levothyroxine Sodium 75 MCG TAB PO SCH (05:54)
[2019-02-07] MEDS: Acetaminophen 325 MG TAB PO PRN (06:00)
[2019-02-07 06:46] LABS: #Eosinphils 0.2 thou/uL (0.0-0.7); #Lymphocytes 1.5 thou/uL (1.20-3.40); #Monocytes 0.7 thou/uL (0.11-0.59); %Basophils 0.6 % (0.0-1.0); %Eosinophils 2.7 % (0.0-10.0); %Lymphocytes 20.5 % (21.0-51.0); %Monocytes 9.4 % (0.0-10.0); %Neutrophils 66.9 % (42.0-75.0); Hemoglobin 10.1 g/dL (12.0-16.0); Mean Corpuscular HGB CONC 32.5 g/dL (32.0-36.0); Mean Corpuscular Hemoglobin 29.5 pg (27.0-31.0); Mean Corpuscular Volume 90.9 fL (78.0-98.0); Mean Platelet Volume 7.6 fL (7.4-10.4); Platelet Count 335 thou/uL (130-400); RBC Distribution Width 13.8 % (11.5-14.5); Red Blood Cell (RBC) Count 3.42 mill/uL (4.20-5.40); White Blood Cell (WBC) Count 7.5 thou/uL (4.8-10.8)
[2019-02-07 07:11] LABS: Anion Gap 9 mmol/L (10-20); BUN (Urea Nitrogen) 7 mg/dL (9.8-20.1); Calc. Creatinine Clearance 74 mL/min (70-130); Calcium 8.2 mg/dL (7.8-10.44); Carbon Dioxide 30 mmol/L (23-31); Chloride 103 mmol/L (98-107); Estimated GFR-MDRD Greater than 90; Glucose 134 mg/dL (80-115); Potassium 3.1 mmol/L (3.5-5.1); Sodium 139 mmol/L (136-145)
[2019-02-07] MEDS: Pancrelipase DR 12000 1 CAP PO SCH ×3 (08:18→16:53)
[2019-02-07] MEDS: Saccharomyces boulardii 250 MG CAP PO SCH (08:18)
[2019-02-07] MEDS: metFORMIN 500 MG TAB PO SCH ×2 (08:18→16:48)
[2019-02-07] MEDS: Pantoprazole 40 MG VIAL IVP SCH (08:19)
[2019-02-07] MEDS: Ramipril 5 MG CAP PO SCH (08:20)
[2019-02-07] MEDS: Citrucel 500 MG TAB PO SCH (08:21)
[2019-02-07] MEDS: Vancomycin HCl 25 MG/ML Oral PO SCH ×3 (08:28→16:48)
[2019-02-07] MEDS ORDERED: Potassium Chloride 20 MEQ TAB PO SCH (16:00)
[2019-02-07] MEDS: Lidocaine 5% Patch TD SCH (16:49)
[2019-02-07 17:16] VITALS: BP 148/66; TEMP 98.7
--- NOTE | 2019-02-08 02:03 | DIS ---
DATE OF ADMISSION: 01/29/2019 DATE OF DISCHARGE: 02/07/2019 PRIMARY CARE PROVIDER: Dr. Kathya Gallagher. DISCHARGE DIAGNOSES: 1. Clostridium difficile diarrhea. 2. Hypokalemia. 3. Intractable abdominal pain. CONDITION OF PATIENT ON THE DAY OF DISCHARGE: Stable. I assessed Ms. Shen on the day of discharge. She denies any chest pain or shortness of breath. Vital signs are stable. S1 and S2 are heard, regular. Lungs are clear to auscultation bilaterally. CONSULTATIONS DURING THIS HOSPITALIZATION: Gastroenterology, Dr. Agee. DISCHARGE MEDICATIONS: 1. Atorvastatin 20 mg at bedtime. 2. Estradiol 10 mg as directed vaginally. 3. Famotidine 20 mg daily. 4. Synthroid 75 mcg daily. 5. Metformin 500 mg 2 times a day. 6. Hyophen one tablet two times a day. 7. Toprol-XL 25 mg at bedtime. 8. Potassium citrate 20 mEq daily. 9. Ramipril 10 mg daily. 10. Januvia 100 mg daily. 11. Torsemide 20 mg daily. 12. Amlodipine 10 mg at bedtime, dose increased during this hospitalization. 13. Citrucel 500 mg daily, prescription for 30 doses. 14. Zofran p.r.n. 15. Pancrelipase two capsules three times a day, prescription for 180 capsules. 16. Florastor 250 mg 2 times a day, prescription for 20 capsules. 17. Vancomycin 250 mg 4 times a day for 10 more days. 18. Movantik 25 mg daily, prescription for 14 doses. HOSPITAL COURSE: Ms. Shen is a pleasant 68-year-old lady, who was admitted to [facility] on January 29, 2019 for intractable abdominal pain in the context of recently treated Clostridium difficile colitis. She was seen by Gastroenterology Service. She was treated for pain. Narcotics had to be minimized because she was also constipated. She was started on a bowel regimen, with improvement. She started having diarrhea. Stool Clostridium difficile was antigen positive. Toxigenic Clostridium difficile was not detected by PCR. She was started on vancomycin, with improvement in her symptoms. Her oral intake also improved. She is being continued on naloxegol for management of opioid-induced constipation. She is advised to follow up with her primary care provider and with the link cutter. On the day of discharge, she has sodium 139, potassium 3.1, which is being replaced; creatinine 0.58, white count 7500, hemoglobin 10.1, and platelet count 335,000. Many thanks for allowing me to participate in your patient's care. Please feel free to contact me with any questions or concerns. DISCHARGE DESTINATION: Home. TIME SPENT: Total amount of time spent coordinating this discharge: 33 minutes. Job ID: [id number]
== END 2019-02-07 17:58 | disposition home or self-care (01) | DRG 373 ==
LOC: ERS 15:58 → T4-B 19:51
PROVIDERS: ADMIT Internal Medicine; ATTEND Internal Medicine
DX: A04.71 Enterocolitis due to Clostridium difficile, recurrent (principal); K59.03 Drug induced constipation; T40.2X5A Adverse effect of other opioids, initial encounter; I10 Essential (primary) hypertension; E11.9 Type 2 diabetes mellitus without complications; E78.5 Hyperlipidemia, unspecified; I25.10 Atherosclerotic heart disease of native coronary artery without angina pectoris; F32.9 Major depressive disorder, single episode, unspecified; K21.9 Gastro-esophageal reflux disease without esophagitis; E03.9 Hypothyroidism, unspecified; I48.91 Unspecified atrial fibrillation; E87.6 Hypokalemia; Z79.84 Long term (current) use of oral hypoglycemic drugs; Z88.6 Allergy status to analgesic agent; Z79.899 Other long term (current) drug therapy; Z90.710 Acquired absence of both cervix and uterus; Z90.49 Acquired absence of other specified parts of digestive tract
CPT/HCPCS: 36415; 36416; 74018; 74177; 80048; 80053; 81003; 81015; 83605; 83690; 85025; 87040; 87324; 87449; 87493; 96361; 96374; 96375; 96376; C9113; J0360; J1885; J2060; J2212; J2270; J2405; J2543; J2550; J2765; J3010; J3230; J3480; J7050; Q9966

== ENCOUNTER 2019-03-28 11:31 | Inpatient (IN) | payer MEDICARE ==
[2019-03-28] MEDS ORDERED: Ondansetron PF 4 MG/2 ML Vial ONE (13:45)
[2019-03-28] MEDS ORDERED: PROPOFOL 200 MG/20 ML VIAL ONE (13:45)
[2019-03-28] MEDS ORDERED: Metoclopramide HCl 10 MG/2 ML VIAL ONE (13:45)
[2019-03-28] MEDS ORDERED: Rocuronium Bromide 10 MG/ML (10ML VIAL) ONE (14:03)
[2019-03-28] MEDS ORDERED: PHENYLEPHRINE-NS 100 MCG/ML 10 ML SYRINGE ONE (14:03)
[2019-03-28] MEDS ORDERED: ePHEDrine 50 MG/ML VIAL ONE (14:03)
[2019-03-28] MEDS ORDERED: Succinylcholine Chloride 20 MG/ML 10 ml SYRINGE FS ONE (16:32)
[2019-03-28] MEDS ORDERED: Albumin 5% 500 ML ONE ×2 (16:36→19:31)
[2019-03-28] MEDS ORDERED: Midazolam HCl 2 mg/2 ml Vial ONE ×2 (16:39→19:37)
[2019-03-28] MEDS ORDERED: Propofol 1,000 MG/100 ML VIAL IV ONE (16:43)
[2019-03-28] MEDS ORDERED: Meropenem 2 GM in Sodium Chloride 0.9% 100 ML IVPB SCH (17:15)
[2019-03-28 17:19] LABS: #Basophils 0.1 thou/uL (0.0-0.2); #Eosinphils 0.1 thou/uL (0.0-0.7); #Lymphocytes 2.9 thou/uL (1.20-3.40); #Monocytes 0.5 thou/uL (0.11-0.59); #Neutrophils 5.2 thou/uL (1.40-6.50); %Basophils 0.7 % (0.0-1.0); %Eosinophils 0.8 % (0.0-10.0); %Lymphocytes 33.7 % (21.0-51.0); %Monocytes 5.2 % (0.0-10.0); %Neutrophils 59.6 % (42.0-75.0); Hemoglobin 10.6 g/dL (12.0-16.0); Mean Corpuscular HGB CONC 31.9 g/dL (32.0-36.0); Mean Corpuscular Hemoglobin 29.5 pg (27.0-31.0); Mean Corpuscular Volume 92.5 fL (78.0-98.0); Mean Platelet Volume 7.1 fL (7.4-10.4); Platelet Count 422 thou/uL (130-400); RBC Distribution Width 13.4 % (11.5-14.5); White Blood Cell (WBC) Count 8.7 thou/uL (4.8-10.8)
[2019-03-28] MEDS ORDERED: Morphine 2 MG/ML SYRINGE SLOW IVP PRN (17:34)
[2019-03-28] MEDS ORDERED: Dextrose 5% in Water 1,000 ML IV PRN (17:34)
[2019-03-28] MEDS ORDERED: Dextrose 50% Abboject 50 ML SYRINGE SLOW IVP PRN (17:34)
[2019-03-28] MEDS ORDERED: hydrALAZINE 20 MG/ML VIAL SLOW IVP PRN (17:34)
[2019-03-28] MEDS ORDERED: Lorazepam 2 MG/ML VIAL SLOW IVP PRN ×2 (17:34→20:13)
--- NOTE | 2019-03-28 17:44 | HP ---
HISTORY OF PRESENT ILLNESS: Tasha Shen is a 68-year-old female, dealing with her sigmoid stricture for some time. Dr. Green was unable to pass the scope beyond it. She developed C. diff colitis. She underwent a bowel prep suboptimal supplemented bowel prep in preop holding, and Dr. Agee performed colonoscopy, but could not pass the colonoscope beyond the rectosigmoid stricture about 20 cm. He thus used an EGD scope, was able to get beyond it, pushing water and a stool transplant performed . At the end of the procedure, her abdomen was noted to be markedly distended. She was mottled. She was intubated by Dr. Stanley. I have been asked to see her regarding perforated bowel in the PACU, while she is on the ventilator. Postprocedural chest x-ray confirmed free intra-abdominal air. ALLERGIES: MEPERIDINE, CHLORPROMAZINE. HABITS: Tobacco, none. Alcohol, none. MEDICATIONS: 1. Metformin 500 b.i.d. 2. Florastor 250 b.i.d. 3. daily. 4. Potassium citrate 20 daily. 5. Multivitamins daily. 6. Metoprolol 25 mg at bedtime. 7. Levothyroxine 75 mcg daily. 8. Gabapentin 1 at bedtime. 9. Vagifem 10 mcg vaginal as directed. 10. Cymbalta 8 daily. 11. Citrucel daily. 12. Atorvastatin 20 mg daily. 13. Aspirin 1 daily. 14. Amlodipine 10 mg a day. PAST SURGICAL HISTORY: She has had in 2016, two lumbar surgeries, continued abdominal pain. Dr. Gt Stanley sees her for chronic pain, manages that. She has had a partial thyroidectomy. She has had a hysterectomy. She has had an appendectomy. She had past colonoscopy. PAST MEDICAL HISTORY: Hypertension, hyperlipidemia, diabetes mellitus, C. diff. HABITS: Tobacco, none. Alcohol, none. PHYSICAL EXAMINATION: VITAL SIGNS: Blood pressure 120/74, heart rate 98, on the ventilator, sedated. LUNGS: Clear to auscultation. CARDIAC: Regular rate and rhythm without murmur or gallop. ABDOMEN: Tympanitic, markedly distended. EXTREMITIES: Unremarkable. LABORATORY DATA: Last laboratories, 02/07/2019, I have on record, white count 7.5, hemoglobin 10.1. Basic metabolic profile, 02/07/2019, sodium 139, potassium 3.1, BUN 7, creatinine 0.58. IMAGING STUDIES: EKG pending. ASSESSMENT/PLAN: 1. Pneumoperitoneum, perforated colon with rectosigmoid stricture. Plan, laparotomy, colon resection, colostomy. I have discussed with her . She has pre-existing anemia. We will repeat stat laboratories, type and cross. Plan placement of a central line. Plan postoperative ventilation and monitoring ICU. Plan exploratory laparotomy, probable colon resection colostomy. Risks and benefits discussed and they consent. 2. History of ablation, successful. Clinical Registered Nurse Re. 3. Rectosigmoid stricture. 4. Clostridium difficile colitis, undergoing multiple treatments now with a fecal transplant performed today during the perforation. 5. Diabetes mellitus. 6. Hypertension. 7. Chronic back pain. Management with nonnarcotic medication per Dr. Gt Stanley. Job ID: [id number]
[2019-03-28 17:49] LABS: #Eosinphils 0.1 thou/uL (0.0-0.7); #Lymphocytes 2.1 thou/uL (1.20-3.40); #Monocytes 0.3 thou/uL (0.11-0.59); #Neutrophils 5.2 thou/uL (1.40-6.50); %Basophils 0.4 % (0.0-1.0); %Eosinophils 0.9 % (0.0-10.0); %Lymphocytes 26.8 % (21.0-51.0); %Monocytes 4.3 % (0.0-10.0); %Neutrophils 67.8 % (42.0-75.0); Hemoglobin 10.5 g/dL (12.0-16.0); Mean Corpuscular HGB CONC 31.5 g/dL (32.0-36.0); Mean Corpuscular Hemoglobin 29.3 pg (27.0-31.0); Mean Corpuscular Volume 93.1 fL (78.0-98.0); Mean Platelet Volume 7.8 fL (7.4-10.4); Platelet Count 361 thou/uL (130-400); RBC Distribution Width 13.5 % (11.5-14.5); Red Blood Cell (RBC) Count 3.58 mill/uL (4.20-5.40); White Blood Cell (WBC) Count 7.7 thou/uL (4.8-10.8)
--- NOTE | 2019-03-28 17:49 | RAD ---
AP view chest Post procedure complications. AP view chest is obtained. The patient is intubated. Endotracheal tube is in good position. Mild cardiomegaly seen. There is a large amount of free intraperitoneal air seen. IMPRESSION: Large amount of free intraperitoneal air. Findings called to Dr. Agee at 5:46 PM on 03/28/2019. Code CR
[2019-03-28 18:11] LABS: ALT (SGPT) 85 U/L (8-55); AST (SGOT) 105 U/L (5-34); Albumin 4.4 g/dL (3.4-4.8); Alkaline Phosphatase 73 U/L (40-150); Anion Gap 18 mmol/L (10-20); BUN (Urea Nitrogen) 13 mg/dL (9.8-20.1); Bilirubin, Total 0.6 mg/dL (0.2-1.2); Calc. Creatinine Clearance 58 mL/min (70-130); Calcium 9.3 mg/dL (7.8-10.44); Carbon Dioxide 21 mmol/L (23-31); Chloride 104 mmol/L (98-107); Estimated GFR-MDRD 80; Globulin 2.5 g/dL (2.4-3.5); Glucose 143 mg/dL (80-115); Potassium 3.4 mmol/L (3.5-5.1); Protein, Total 6.9 g/dL (6.0-8.3); Sodium 140 mmol/L (136-145)
[2019-03-28] MEDS ORDERED: Phenylephrine HCL 10 MG/ML VIAL ONE (18:42)
[2019-03-28] MEDS ORDERED: Fentanyl 100 MCG/2 ML VIAL ONE (18:57)
[2019-03-28] MEDS ORDERED: Fentanyl BOLUS 250 ML IVPB PRN (20:13)
[2019-03-28] MEDS ORDERED: DISCONTINUE PREVIOUS NARCOTIC PAIN MEDICATIONS AND BENZODIAZEPINES FS SCH (20:13)
[2019-03-28] MEDS ORDERED: Propofol BOLUS 1,000 MG/100 ML VIAL IV PRN (20:13)
[2019-03-28] MEDS ORDERED: Ventilator Sedation Protocol 1 EACH FS SCH (20:15)
[2019-03-28] MEDS ORDERED: Lactated Ringer's 1,000 ML IV SCH (20:15)
[2019-03-28 20:41] LABS: Actual Bicarbonate (HCO3a) 19.8 mEq/L (22-28); Base Excess (BEa) -4.3 mEq/L (-2.0 to +3.0); CO2 Tension 32.7 mmHg (35.0-45.0); Calcium, Ionized 1.06 mmol/L (1.12-1.30); Carboxyhemoglobin (COHb) 0.3 gm% (0.0-3.0); Hemoglobin (Hb) 9.8 g/dL (12.0-16.0); O2 Tension (PaO2) 219.7 mmHg (> 70.0); Potassium - ABG Lab 2.72 mmol/L (3.70-5.30)
[2019-03-28 20:44] LABS: Puncture Site LBR
[2019-03-28 20:45] LABS: ALV-art Gradient 95.925 (0-20)
[2019-03-28] MEDS: Lactated Ringer's 1,000 ML IV SCH (21:00)
[2019-03-28] MEDS: Propofol 1,000 MG/100 ML VIAL IV PRN (21:01)
[2019-03-28 21:08] LABS: Anion Gap 17 mmol/L (10-20); BUN (Urea Nitrogen) 16 mg/dL (9.8-20.1); Calc. Creatinine Clearance 57 mL/min (70-130); Carbon Dioxide 21 mmol/L (23-31); Chloride 106 mmol/L (98-107); Estimated GFR-MDRD 78; Glucose 206 mg/dL (80-115); Sodium 141 mmol/L (136-145)
[2019-03-28 21:11] LABS: Mean Corpuscular HGB CONC 32.5 g/dL (32.0-36.0); Mean Corpuscular Volume 92.3 fL (78.0-98.0); Mean Platelet Volume 6.8 fL (7.4-10.4); Platelet Count 299 thou/uL (130-400); RBC Distribution Width 13.3 % (11.5-14.5); Red Blood Cell (RBC) Count 3.01 mill/uL (4.20-5.40); White Blood Cell (WBC) Count 2.3 thou/uL (4.8-10.8)
[2019-03-28] MEDS: Fleet Enema 133 ML BOT FS SCH (21:15)
[2019-03-28 21:16] LABS: Band 26 % (5-11); Lymphocytes 8 % (21-51); MDiff Complete? YES; Monocytes 6 % (0-10); Neutrophil 60 % (42-75); Platelet Morphology Comment Appears Adequate
[2019-03-28 21:18] LABS: Potassium 2.8 mmol/L (3.5-5.1)
--- NOTE | 2019-03-28 21:18 | RAD ---
AP view chest. HISTORY: Placement of central line. AP view chest obtained. Nasogastric and endotracheal tubes are in place. There is been placement of a left subclavian central line distal tip overlying the SVC right atrial j unction. The lungs are well aerated. No evidence of acute acute intrathoracic abnormality seen. No evidence of effusions, pneumonia or pneumothorax seen IMPRESSION: No evidence of pneumothorax post left subclavian central line placement.
[2019-03-28] MEDS: Meropenem 2 GM in Sodium Chloride 0.9% 100 ML IVPB SCH (21:42)
[2019-03-28] MEDS: Enoxaparin Sodium 40 MG/0.4 ML SYRINGE SC SCH (21:42)
[2019-03-28] MEDS ORDERED: Potassium Chloride 40 MEQ in Premix Bag 1 BAG IVPB ONE (22:15)
[2019-03-28] MEDS: Albuterol Sulfate 2.5 mg/3 ml Neb NEB SCH (22:18)
[2019-03-28] MEDS: fentaNYL Citrate/PF 2,000 MCG in Sodium Chloride 0.9% 60 ML IV SCH (22:51)
--- NOTE | 2019-03-28 23:12 | OP ---
DATE OF PROCEDURE: 03/28/2019 PROCEDURE PERFORMED: Colonoscopy with installation of donor fecal material (fecal microbiota transplantation). INDICATION FOR PROCEDURE: Recurrent Clostridium difficile infection. DESCRIPTION OF PROCEDURE: After the risks and benefits of the procedure were explained to the patient including risks of bleeding, infection, perforation, reactions to anesthesia, aspiration and/or pain, informed consent was obtained. The patient was then taken to the endoscopy suite, where deep sedation was administered via propofol and anesthesia support. Once adequate sedation was achieved, a digital rectal examination was performed followed by introduction of the standard colonoscope, which was then advanced to the sigmoid colon. Significant difficulty was experienced in the sigmoid colon due to colonic narrowing and significant tortuosity that was unable to be traversed with the standard colonoscope despite placing the patient in the supine position and with the application of abdominal pressure to facilitate passage of the scope. Hence, the colonoscope was then removed and exchanged for a gastroscope. Using the gastroscope, the colonic stricture/narrowing was able to be traversed with significant difficulty, but traversing nonetheless. The scope was then advanced to the proximal ascending colon with further advancement not feasible due to the length of the scope and with the hub of the scope being at the anal orifice. Given that the scope was advanced as far as I was able, installation of approximately 250 mL to 500 mL of donor stool, which was then instilled into the cecum and proximal ascending colon. Upon completion of this portion of the procedure, the scope was withdrawn with the patient slowly in order to evaluate for possible retained capsule endoscopy. It was not seen during this examination due to poor colonic prep and a significant amount of retained liquid stool seen throughout the descending, transverse, and ascending colons. All equipment was then removed from the patient, and the patient was transferred to Day Stay in satisfactory condition. The patient tolerated the procedure well with no immediate perioperative complications. FINDINGS: Digital rectal exam: Small external hemorrhoids were seen on external examination. Colon findings: Significant narrowing of the colonic lumen was seen within the rectosigmoid junction at approximately 20 cm past the anal verge. This was not able to be traversed with the standard colonoscope, but instead transferred to the standard gastroscope and it was ultimately able to be traversed with significant difficulty with installation of a significant amount of sterile water. Upon traversing the sigmoid narrowing, the scope was then advanced to the proximal ascending colon with some difficulty due to a significant amount of retained liquid stool that impeded visualization of the colonic mucosa. Once the scope was advanced to the proximal ascending colon, installation of approximately 250 to 500 mL of donor stool was instilled into the proximal colon. Once instilled there, careful examination of the colonic mucosa was performed with approximately 40% of the colonic mucosa visualized and it appeared normal with no evidence of infection or ulceration. The colonic stricture was then seen at approximately 45 cm and extended to 25 cm. There was significant narrowing of the colonic lumen as well as edema associated with colonic mucosa. The scope was then withdrawn from the patient and the procedure was terminated. IMPRESSION: 1. A significant amount of retained colonic stool was seen throughout the descending, transverse, and ascending colon limiting visualization of the colonic mucosa. 2. Successful fecal transplantation with installation of 250 to 500 mL of donor stool within the proximal ascending colon. 3. A significant high-grade colonic stricture/narrowing extending from 25 to 45 cm past the anal verge. 4. Small external hemorrhoids. RECOMMENDATIONS: 1. We would have the patient follow up in the GI clinic in 3 weeks. 2. We will monitor the patient in the postoperative period for complications from the procedure. 3. We would discontinue oral vancomycin at this time. Job ID: [id number]
[2019-03-28] MEDS: Albumin 25% 25 GM/100 ML BOT IVPB SCH (23:45)
--- NOTE | 2019-03-29 01:46 | OP ---
DATE OF PROCEDURE: 03/28/2019 PREOPERATIVE DIAGNOSES: Sigmoid diverticulitis, sigmoid stricture, colon perforation during colonoscopy and fecal transfer for refractory Clostridium difficile colitis. POSTOPERATIVE DIAGNOSES: Sigmoid diverticulitis, sigmoid stricture, colon perforation during colonoscopy and fecal transfer for refractory Clostridium difficile colitis with ischemic right colon with adherent small bowel to the diverticular stricture and feculent peritonitis. PROCEDURES PERFORMED: Exploratory laparotomy, adhesiolysis, ureterolysis, left segmental ileal resection with anastomosis, resection of the left colon, mobilization of the splenic flexure, Jaleel's procedure, right colectomy without anastomosis, open abdomen ABThera placement and left subclavian vein central line. PLAN: We will plan to return to the operating room in 24 to 48 hours for abdominal washout, consideration of ileocolostomy anastomosis and colostomy with plans for future colostomy reversal. ANESTHESIA: General. ESTIMATED BLOOD LOSS: 200 mL. BLOOD TRANSFUSION: None. DESCRIPTION OF PROCEDURE: The patient was taken to the operating room where under general anesthesia, the left upper clavicular area was prepared with ChloraPrep and draped in routine fashion. Trocar catheter introduced into the subclavian vein infraclavicular approach and trocar catheter introduced. J-wire threaded, trocar catheter removed. Skin site was enlarged sharply. Seldinger technique was used to place triple-lumen catheter and secured with 3-0 silk suture. Biopatch sterile dressing applied. Each port aspirated blood flushed with saline solution after J-wire removed. Sterile dressing applied. With the patient in the dorsal lithotomy position, abdomen was clipped of hair, prepared with ChloraPrep and draped in routine fashion. Incision made from above the umbilicus to the pubis. The patient had massive distention from free intraabdominal air. A midline incision was made and carried down through skin, subcutaneous tissue, midline fascia. The omentum was reflected. Adhesions were taken down. The segment of small bowel was adherent to the pelvis, to the sigmoid stricture area at the pelvic inlet. The stricture was adherent to the bladder. Careful dissection freed the bladder from the stricture and small bowel dissected free. Had an inflammatory mass in the small bowel. Segmental small bowel resection undertaken with a JERRY stapler, dividing the mesentery with the LigaSure and creating a stapled anastomosis with a 75 JERRY stapler, closing the defect with a 3-0 silk sutures and reinforced the staple line with interrupted Lembert suture of 3-0 silk. Good anastomosis was palpated. At this point, attention was then turned to the stricture. Careful dissection identified the left ureter, which had been drawn up in the inflammatory action and it was carefully dissected free and kept free of harm as the sigmoid colon was freed from the pelvis with careful dissection and left colon was mobilized as was the splenic flexure. The colon was full of fluid and air. It was markedly distended. Once the colon was dissected free and down towards the rectosigmoid, the rectosigmoid was divided with a Contour, identifying the ureter throughout. Once this was accomplished, the rectal stump was marked with a 2-0 Prolene suture. The left colon was then mobilized, dividing the mesentery between clamps and LigaSure using 2-0 silk ties. The splenic flexure as noted had been mobilized. Gastrocolic ligament taken down on the distal transverse colon and mobilizing the splenic flexure. At this point, viable section of proximal colon was divided with a JERRY stapler. Attention was then turned to the abdominal cavity. It was then washed out. Good hemostasis was obtained with cautery. There was noted to be feculent material on the right upper quadrant, right lateral gutter. It was appreciated that the colon had split and leaked feculent material. This was rapidly mobilized divided with a JERRY stapler. Right colon mesentery divided between LigaSure and Laura clamps and ligated with 2-0 silk ties. Duodenum identified and kept free of harm. The hole in the mid descending to proximal descending colon was identified and controlled with a pursestring suture [id number] of 2-0 silk. Once this was controlled, abundant feculent material was evacuated. The viable transverse colon proximally was divided with a JERRY stapler. Mesentery divided with the LigaSure. Right colon submitted with this left colon. Abdominal cavity was thoroughly irrigated with multiple L of saline solution. Good hemostasis noted. It was decided at this point, an ABThera was placed with open abdomen and anastomosis of ileocolon was not formed and the distal colon was left stapled. There was abundant fluid in the distal colon and a small opening was made and this was evacuated into a canister and then re-stapled to seal it decompressing it. Abdominal cavity was thoroughly irrigated, irrigant evacuated. Hemostasis noted. Sponge and instrument counts were correct. An ABThera was placed. The patient was transferred to the intensive care unit on the ventilator in critical condition. Job ID: [id number]
[2019-03-29] MEDS: Albuterol Sulfate 2.5 mg/3 ml Neb NEB SCH ×6 (02:38→22:41)
[2019-03-29] MEDS: Lactated Ringer's 1,000 ML IV SCH ×4 (03:04→20:42)
[2019-03-29] MEDS: Meropenem 2 GM in Sodium Chloride 0.9% 100 ML IVPB SCH ×3 (03:04→18:41)
[2019-03-29] MEDS: HumaLOG 300 UNITS/3 ML VIAL SC PRN ×2 (04:05→10:28)
[2019-03-29] MEDS: Propofol 1,000 MG/100 ML VIAL IV PRN ×2 (05:09→20:00)
[2019-03-29] MEDS: Albumin 25% 25 GM/100 ML BOT IVPB SCH ×3 (06:15→17:48)
[2019-03-29 07:22] LABS: Actual Bicarbonate (HCO3a) 21.7 mEq/L (22-28); Base Excess (BEa) -2.3 mEq/L (-2.0 to +3.0); CO2 Tension 33.9 mmHg (35.0-45.0); Calcium, Ionized 1.08 mmol/L (1.12-1.30); Carboxyhemoglobin (COHb) 0.7 gm% (0.0-3.0); Hemoglobin (Hb) 9.5 g/dL (12.0-16.0); O2 Tension (PaO2) 149.3 mmHg (> 70.0); Potassium - ABG Lab 3.41 mmol/L (3.70-5.30); pH, Arterial 7.42 (7.35-7.45)
[2019-03-29 07:25] LABS: ALV-art Gradient 93.525 (0-20); Puncture Site RRA
--- NOTE | 2019-03-29 08:12 | RAD ---
CHEST 1 VIEW: HISTORY: Respiratory insufficiency. COMPARISON: 03/28/2019. FINDINGS: Life-support tubes remain in place. Monitor leads overlie the chest. Heart size is within normal li mits. IMPRESSION: No pneumonia, edema, pleural effusion, or other acute intrathoracic disease. Stable chest. POS: OFF
[2019-03-29] MEDS: Morphine 4 MG/ML VIAL SLOW IVP PRN ×3 (09:02→14:36)
[2019-03-29] MEDS: Pantoprazole 40 MG VIAL IVP SCH (09:03)
[2019-03-29] MEDS: Morphine 2 MG/ML SYRINGE SLOW IVP PRN (12:06)
[2019-03-29] MEDS: fentaNYL Citrate/PF 2,000 MCG in Sodium Chloride 0.9% 60 ML IV SCH ×2 (13:14→20:35)
[2019-03-29] MEDS ORDERED: Rocuronium Bromide 10 MG/ML (10ML VIAL) ONE (15:25)
[2019-03-29] MEDS ORDERED: PHENYLEPHRINE-NS 100 MCG/ML 10 ML SYRINGE ONE (15:25)
[2019-03-29] MEDS ORDERED: Esmolol 100 MG/10 ML VIAL ONE (15:25)
[2019-03-29] MEDS ORDERED: PROPOFOL 200 MG/20 ML VIAL ONE (15:25)
[2019-03-29] MEDS ORDERED: Bupivacaine PF 0.5% 30 ML VIAL ONE (15:44)
[2019-03-29] MEDS ORDERED: Ondansetron HCl/PF 4 MG/2 ML Vial IVP PRN (17:05)
[2019-03-29] MEDS ORDERED: Fentanyl 100 MCG/2 ML VIAL ONE (17:53)
--- NOTE | 2019-03-29 18:02 | PRG ---
DATE OF SERVICE: 03/29/2019 REASON FOR CONSULTATION: Clostridium difficile colitis, status post fecal microbiota transplantation and complicated by perforation. SUBJECTIVE: The patient underwent emergent laparoscopic surgery yesterday that was converted to an open procedure with findings of high-grade sigmoid stricture, adherent small bowel to the sigmoid stricture and a larger perforation within the right colon with resultant peritonitis. She was successfully intervened upon by the General Surgery Service and ultimately transferred to the ICU with plans for further washout today. During the course of today, the patient's blood pressure and pulse remained stable and she was relatively hemodynamically stable throughout this time. Otherwise, no further complications from the procedure yesterday, although her condition remains in guarded/critical status. She is currently intubated and sedated with inability to contribute to interview today. PHYSICAL EXAMINATION: VITAL SIGNS: Temperature 99.5, heart rate 112, blood pressure 110/54, respiratory rate 14, sating 99% on mechanical ventilation. GENERAL: The patient is lying in bed, in no acute distress, intubated and sedated. CARDIOVASCULAR: Tachycardic rate but regular rhythm. RESPIRATORY: Coarse breath sounds auscultated in all lung johnson consistent with mechanical ventilation. ABDOMEN: Hypoactive bowel sounds. Surgical incision noted in the lower abdomen. EXTREMITIES: No cyanosis, clubbing, or edema. LABORATORY DATA: CBC with a white blood cell count of 2.3, hemoglobin 9.0, hematocrit 27.8, platelets 299. Chemistry with a sodium of 141, potassium 2.8, chloride 106, CO2 of 21, BUN 16, creatinine 0.74, glucose 206. ASSESSMENT AND PLAN: The patient is a 68-year-old female with past medical history including hypertension, hyperlipidemia, diabetes, and recurrent Clostridium difficile colitis, now status post fecal microbiota transplantation with resultant complication from the procedure including a right-sided colonic perforation that required emergent surgical intervention. Clostridium difficile colitis: The patient is presenting with an extensive history of diarrhea with recent hospitalization and antibiotic use prompting the evaluation for Clostridium difficile for which she was both antigen and toxin positive. She was ultimately treated with oral vancomycin 125 q.6 x14 days with recurrence of her symptoms in the post treatment. She was then placed on an oral vancomycin taper over the next 6 weeks and at the completion of the therapy continued to have abdominal pain and diarrhea with stool studies positive again for Clostridium difficile. She ultimately underwent colonoscopy on March 28, 2019, as part of a fecal microbiota transplantation and noted to have a high-grade sigmoid colonic stricture that was initially not able to be traversed with the standard colonoscope, but ultimately was able to be traversed with a gastroscope; however, during the course of the procedure, she sustained a colonic perforation within the right colon that was not immediately evident but discovered in the postoperative area. She was subsequently taken for emergent abdominal surgery with resection of the sigmoid stricture, lysis of adhesions, resection of a portion of small bowel that was adhesed to the sigmoid colon as well as resection of a portion of her large bowel secondary to the perforation and devascularization of the region. She is scheduled to go for washout of her abdomen later on today and reanastomosis of her colon with ultimately placement of colostomy for the foreseeable future. Concerning her Clostridium difficile, she did successfully undergo the fecal microbiota transplantation with installation of approximately 250-500 mL of donor stool within the right colon/ascending colon. So at this point, the colonization of her colon should be starting to normalize if not already. I would like to see how she responds in the postoperative period with careful clinical monitoring of ostomy output. RECOMMENDATIONS: 1. We will continue antibiotics as you are doing, but would hold on oral vancomycin at this time given recent treatment for Clostridium difficile colitis with fecal microbiota transplantation. 2. Would monitor the patient clinically in the postoperative period for ostomy output that could be indicative of continued Clostridium difficile infection. 3. Pain control per General Surgery Service. We will continue to follow peripherally for now in light of her extensive surgeries and would defer to General Surgery Service for the time being. Please call with any additional questions. Job ID: [id number]
[2019-03-29] MEDS ORDERED: Ventilator Sedation Protocol 1 EACH FS SCH (18:15)
--- NOTE | 2019-03-29 18:30 | PRG ---
DATE OF SERVICE: 03/29/2019 SUBJECTIVE: Tasha Shen is doing well today. She is in the ICU. She is on the ventilator. She is sedated. Plan for reexploration, abdominal washout, ileocolonic anastomosis, and colostomy today. I have discussed these plans with the family. I have answered their questions. She is off all pressors. OBJECTIVE: VITAL SIGNS: Heart rate 112, blood pressure 110/54, and respiratory rate 14. Gastric drainage 350 mL per 24 hours. ABDOMEN: Abdominal wound VAC, ABThera in place. LABORATORY DATA: White count 2.3 and hemoglobin 9 after 1 unit of blood transfused yesterday. Sodium 141, potassium 2.8, chloride 106, carbon dioxide 21, BUN 16, creatinine 0.74, GFR 78, and glucose 206. Blood gases are acceptable today. ASSESSMENT AND PLAN: 1. Plan abdominal washout. Recheck her electrolytes and blood count this evening. Replace potassium as needed. I have already replaced this morning. 2. Status post sigmoid stricture, left colectomy and right colectomy. Right colectomy performed because of perforation and devitalized right colon secondary to obstruction and distention. Pathology pending. Job ID: [id number]
[2019-03-29] MEDS ORDERED: Ketorolac Tromethamine 30 MG/ML VIAL IVP PRN (19:19)
--- NOTE | 2019-03-29 19:43 | CON ---
DATE OF CONSULTATION: 03/29/2019 HISTORY OF PRESENT ILLNESS: Tasha Shen is a 68-year-old female. She presented yesterday afternoon for fecal transplant. Apparently, she has a sigmoid stricture. Dr. Agee apparently was unable to pass the colonoscope past the stricture, but was able to get an EGD scope past the stricture and stool transplant was performed. She became distended mild after that. She subsequently was intubated. She had free intraabdominal air on chest x-ray, so she was taken to the operating room. She had ischemic right colon, adherent small bowel and had a diverticular stricture as well as feculent peritonitis which would have me wondering if the perforation actually was not prior to the colon procedure. In any event, she subsequently has been transferred to the critical care unit, mechanically ventilated. She had adhesiolysis, ureterolysis, and ileal resection with anastomosis, resection of the left colon, mobilization of splenic flexure, Jaleel procedure, right colectomy without anastomosis and her abdomen was left open. PAST MEDICAL HISTORY: 1. Remarkable for lumbar spine surgery. 2. Chronic pain. 3. History of partial thyroidectomy. 4. History of hysterectomy. 5. History of an appendectomy. 6. History of hypertension. 7. Lipid disorder. 8. Diabetes. 9. Recent C. diff infection. SOCIAL HISTORY: She is nonsmoker, nondrinker, nondrug user. FAMILY HISTORY: Not obtained. ALLERGIES: THERE WERE REPORTED ALLERGIES TO MEPERIDINE AND CHLORPROMAZINE. REVIEW OF SYSTEMS: 10 point review of systems completed, not obtainable secondary to mechanical ventilation. PHYSICAL EXAMINATION: GENERAL: Tasha Shen is a 68-year-old female. VITAL SIGNS: She is afebrile. She will awaken. She is on generous dose of propofol and fentanyl and still awakens. I switched her from propofol to a Versed drip. VITAL SIGNS: Respiratory rate 14, blood pressure 106/44, heart rate is 100. HEENT: Pupils react. Sclerae are anicteric. Extraocular movements appear full. NECK: Supple. LUNGS: Clear anteriorly. HEART: Regular rhythm. S1 and S2 are normal. ABDOMEN: Abdomen is open and bandaged. EXTREMITIES: No clubbing, cyanosis, or edema. Chest radiograph shows no infiltrates. White count 2.3, hemoglobin 9, platelets 299. She has 26% bands on her peripheral smear. Sodium 141, potassium 2.8, chloride 106, bicarb 21, BUN 16, creatinine 0.74. PH 7.42, CO2 of 33, PO2 of 149. IMPRESSION: 1. Peritonitis, status post laparotomy. 2. Postop mechanical ventilation, anticipating repeat trip to the OR either today or tomorrow. 3. Relative neutropenia which is without a doubt related to her peritonitis and sequestration of white cells. 4. History of chronic pain, likely explaining her tolerance to fentanyl. We will be happy to follow the other physicians caring for her. This is a 70-minute consult, with greater than 50% of the time was spent on the unit coordinating care. Job ID: [id number] MTDD
--- NOTE | 2019-03-29 20:11 | RAD ---
AP view chest. HISTORY: New endotracheal tube. AP view chest obtained on 03/27/2019. Comparison made to previous radiograph from earlier in the day. AP view chest demonstrates a nasogastric tube in place distal tip not visualized. The patient is intu bated with endotracheal tube in good position. A left subclavian central line is seen. Distal tip overlies the SVC right atrial junction. The lungs are well aerated. No evidence of acute intrathoracic abnormality seen. IMPRESSION: Lines and tubes in good position.
[2019-03-29 21:52] LABS: Band 19 % (5-11); Hemoglobin 9.1 g/dL (12.0-16.0); Hypochromia SLIGHT = 6-15 cells (100X) (0-5/hpf); Lymphocytes 7 % (21-51); MDiff Complete? YES; Mean Corpuscular HGB CONC 32.5 g/dL (32.0-36.0); Mean Corpuscular Hemoglobin 29.5 pg (27.0-31.0); Mean Corpuscular Volume 90.9 fL (78.0-98.0); Mean Platelet Volume 7.2 fL (7.4-10.4); Monocytes 8 % (0-10); Neutrophil 66 % (42-75); Platelet Count 182 thou/uL (130-400); Platelet Morphology Comment Appears Adequate; RBC Distribution Width 13.4 % (11.5-14.5); Red Blood Cell (RBC) Count 3.07 mill/uL (4.20-5.40)
[2019-03-29 21:59] LABS: Anion Gap 11 mmol/L (10-20); BUN (Urea Nitrogen) 18 mg/dL (9.8-20.1); Calc. Creatinine Clearance 75 mL/min (70-130); Calcium 8.2 mg/dL (7.8-10.44); Carbon Dioxide 25 mmol/L (23-31); Chloride 107 mmol/L (98-107); Estimated GFR-MDRD Greater than 90; Glucose 132 mg/dL (80-115); Potassium 3.4 mmol/L (3.5-5.1); Sodium 140 mmol/L (136-145)
[2019-03-29] MEDS: Enoxaparin Sodium 40 MG/0.4 ML SYRINGE SC SCH (22:36)
[2019-03-29] MEDS ORDERED: Potassium Chloride 40 MEQ in Premix Bag 1 BAG IVPB SCH (23:00)
[2019-03-30] MEDS: Albumin 25% 25 GM/100 ML BOT IVPB SCH ×2 (00:36→05:33)
--- NOTE | 2019-03-30 01:51 | OP ---
DATE OF PROCEDURE: 03/29/2019 PREOPERATIVE DIAGNOSES: Open abdomen, ABThera in place 24 hours ago, status post left colectomy, right colectomy, no anastomosis formed and feculent peritonitis. POSTOPERATIVE DIAGNOSES: Open abdomen, ABThera in place 24 hours ago, status post left colectomy, right colectomy, no anastomosis formed and feculent peritonitis with clean abdomen. PROCEDURES PERFORMED: Exploratory laparotomy, removal of ABThera, abdominal washout, ileocolostomy (terminal ileum to transverse colon anastomosis, stapled), and left descending colostomy. ANESTHESIA: General. ESTIMATED BLOOD LOSS: Less than 10 mL. Fascia closed. Abdominal wound VAC applied. Segmental skin openings. DESCRIPTION OF PROCEDURE: The patient was taken to the operating room under general anesthesia, endotracheal tube was replaced by Anesthesia. ABThera was removed. Abdomen prepared with Betadine and draped in routine fashion. ABThera removed from the depths of the wound. Abdominal cavity irrigated with 4 L saline solution, irrigant evacuated all quadrants and intra bowel loops were irrigated. The bowel was healthy. The terminal ileum was anastomosed to the proximal transverse colon with a staple technique using a JERRY 75 stapler, closing the common enterotomy and colotomy with JERYR fired stapler. The staple line was reinforced with lemberted suture of 3-0 silk. Good lumen was palpated. Good hemostasis noted. Bowel was viable. Descending colon, which had been previously mobilized, was then prepared for colostomy. The patient was brought down to the left lower quadrant. Skin defect circular excised in the left lower quadrant through a chosen colostomy site and a cruciate incision made in the anterior rectus fascia. Rectus muscle split. Posterior peritoneum/fascia opened and dilated 2 fingerbreadths, and colon brought out. Sponge and needle counts were correct. Abdominal cavity irrigated and irrigant evacuated. Seprafilm applied. Midline fascia closed with continuous suture of #1 PDS. Skin approximated loosely with víctor and abdominal wound VAC applied. Once this was in place, colostomy maturation undertaken excising the staple line and anastomosis in 4 quadrant sutures of 3-0 Vicryl placed, everting the colostomy and simple sutures of 3-0 Vicryl used to complete the colostomy. Colostomy appliance secured. Colostomy was healthy. The patient tolerated the procedure well. She was transferred to intensive care unit on the ventilator. Job ID: [id number]
[2019-03-30] MEDS: Albuterol Sulfate 2.5 mg/3 ml Neb NEB SCH ×6 (02:09→22:09)
[2019-03-30] MEDS: Meropenem 2 GM in Sodium Chloride 0.9% 100 ML IVPB SCH ×3 (03:46→17:20)
[2019-03-30] MEDS: Acetaminophen 1,000 MG in Premix Bag 1 BAG IVPB PRN ×2 (04:07→21:12)
[2019-03-30] MEDS: Lactated Ringer's 1,000 ML IV SCH ×4 (05:28→21:10)
[2019-03-30] MEDS: Propofol 1,000 MG/100 ML VIAL IV PRN ×2 (05:33→16:06)
--- NOTE | 2019-03-30 07:25 | RAD ---
Exam: Chest one view portable: HISTORY: 3 insufficiency COMPARISON: 03/29/2019 FINDINGS: Life support tubes in place. Stable bilateral vascular congestion with increased markings in the infr ahilar regions bilaterally. The upper lung zones are clear. IMPRESSION: Bilateral vascular congestion with more marked increased markings in the infrahilar regions and lower lung zones than on the prior study. Continued short-term follow-up.
[2019-03-30 07:27] LABS: Actual Bicarbonate (HCO3a) 22.8 mEq/L (22-28); Base Excess (BEa) -0.6 mEq/L (-2.0 to +3.0); CO2 Tension 32.3 mmHg (35.0-45.0); Calcium, Ionized 1.08 mmol/L (1.12-1.30); Carboxyhemoglobin (COHb) 1.6 gm% (0.0-3.0); Hemoglobin (Hb) 7.8 g/dL (12.0-16.0); O2 Tension (PaO2) 107.2 mmHg (> 70.0); pH, Arterial 7.47 (7.35-7.45)
[2019-03-30 08:08] LABS: ALV-art Gradient 66.325 (0-20); Puncture Site L.R.
[2019-03-30] MEDS: Pantoprazole 40 MG VIAL IVP SCH (08:43)
[2019-03-30 12:57] LABS: Hemoglobin 8.1 g/dL (12.0-16.0); Mean Corpuscular HGB CONC 33.5 g/dL (32.0-36.0); Mean Corpuscular Hemoglobin 30.8 pg (27.0-31.0); Mean Corpuscular Volume 91.9 fL (78.0-98.0); Mean Platelet Volume 7.5 fL (7.4-10.4); Platelet Count 176 thou/uL (130-400); RBC Distribution Width 13.4 % (11.5-14.5); Red Blood Cell (RBC) Count 2.62 mill/uL (4.20-5.40); White Blood Cell (WBC) Count 5.2 thou/uL (4.8-10.8)
[2019-03-30 13:17] LABS: Anion Gap 11 mmol/L (10-20); BUN (Urea Nitrogen) 14 mg/dL (9.8-20.1); Calc. Creatinine Clearance 77 mL/min (70-130); Calcium 8.3 mg/dL (7.8-10.44); Carbon Dioxide 23 mmol/L (23-31); Chloride 110 mmol/L (98-107); Estimated GFR-MDRD Greater than 90; Glucose 90 mg/dL (80-115); Potassium 3.4 mmol/L (3.5-5.1); Sodium 141 mmol/L (136-145)
[2019-03-30 13:28] LABS: Band 44 % (5-11); Lymphocytes 9 % (21-51); MDiff Complete? YES; Metamyelocyte 2 % (0-0); Monocytes 1 % (0-10); Myelocyte 1 % (0-0); Neutrophil 43 % (42-75); Platelet Morphology Comment Appears Adequate
--- NOTE | 2019-03-30 14:48 | PRG ---
DATE OF SERVICE: 03/30/2019 SUBJECTIVE: Ms. Shen is in ICU on the ventilator. She is in C1. She has been followed by Dr. Castellanos. Dr. Castellanos seen her this morning, decided to leave her on the ventilator to let her rest and recover from her operation yesterday. Yesterday, she underwent definitive closure of abdomen without plans to return to the operating room. She underwent anastomosis of her small bowel to proximal transverse colon and end-colostomy left colon. This can be reversed in the future should the patient wish in the months to come. Currently, the patient is sedated on the ventilator. OBJECTIVE: VITAL SIGNS: Blood pressure 124/55, 105 heart rate. HEAD, EYES, EARS, NOSE, AND THROAT: Unremarkable. LUNGS: Clear to auscultation. No wheezing. ABDOMEN: Soft. Bowel sounds present. Wound VAC in place. Colostomy healthy. EXTREMITIES: Unremarkable without edema. Gastric drainage is minimal. LABORATORY DATA: White count 5, hemoglobin 8.1. Sodium 141, potassium 3.4, carbon dioxide 23, BUN and creatinine 14 and 0.59. ASSESSMENT/PLAN: 1. Status post left colon resection for sigmoid stricture and right colon resection for ischemia and perforation due to the stricture and endoscopy. The patient has definitive closure of her abdomen with a wound VAC in place. This wound VAC can be changed by wound care probably tomorrow Wednesday and then changed 3 times a week afterwards. 2. Respiratory failure, sepsis, resolving. Continue intravenous antibiotics. Continue ventilator. 3. Clostridium difficile colitis. Continue treatment for that. We will give her Vancocin per NG tube. She has a short segment of colon left. 4. Malnutrition. Asked Dietary to begin TPN recommendations and will start tomorrow. 5. Decrease IV fluids to 100 hours. Urine output is over 50 to 100 an hour. Job ID: [id number]
--- NOTE | 2019-03-30 16:10 | PRG ---
DATE OF SERVICE: 03/30/2019 SUBJECTIVE: Ms. Shen remains mechanically ventilated. OBJECTIVE: VITAL SIGNS: She is afebrile, heart rate is 99, blood pressure is 121/54, and respiratory rate is in the teens. LUNGS: Clear anteriorly. HEART: Regular rhythm. ABDOMEN: Soft. EXTREMITIES: Without asymmetry or edema. SKIN: She has a wound VAC in place on her abdomen. IMAGING STUDIES: She has on chest x-ray increased interstitial markings in her lung bases. LABORATORY DATA: White count 5.2, hemoglobin 8.1, and platelets 176. Sodium 141, potassium 3.4, chloride 110, bicarb 23, BUN 14, and creatinine 0.59. Blood gas; pH 7.47, pCO2 32, and pO2 107. Rate of 14 and FiO2 is 30, tidal volume is 450, pressure support of 10, PEEP of 5. IMPRESSION: Early noncardiogenic pulmonary edema associated with laparotomy for bowel perforation. I met with the daughters and answered all their questions. She will wean slowly. They say she is minimally functional when she is at home and is not capable of going for long walks. This may lead to a long recovery process. We will continue mechanical ventilation. We will decrease ventilatory support today and again in the morning. We will work towards weaning over the weekend and hopefully by Wednesday depending on radiograph and clinical course. Intake and output are positive about 3 L since she came in. I would not recommend diuresis until we are sure she is stable from a hemodynamic standpoint given her peritonitis. We will follow the other physicians caring for her. CRITICAL CARE TIME: 30 minutes. Job ID: [id number]
[2019-03-30] MEDS: fentaNYL Citrate/PF 2,000 MCG in Sodium Chloride 0.9% 60 ML IV SCH (16:57)
[2019-03-30] MEDS: Enoxaparin Sodium 40 MG/0.4 ML SYRINGE SC SCH (21:06)
[2019-03-31] MEDS: Albuterol Sulfate 2.5 mg/3 ml Neb NEB SCH ×6 (02:35→22:05)
[2019-03-31] MEDS: Meropenem 2 GM in Sodium Chloride 0.9% 100 ML IVPB SCH ×3 (02:39→18:11)
[2019-03-31 04:01] LABS: #Eosinphils 0.1 thou/uL (0.0-0.7); #Lymphocytes 0.5 thou/uL (1.20-3.40); #Monocytes 0.1 thou/uL (0.11-0.59); #Neutrophils 5.4 thou/uL (1.40-6.50); %Basophils 0.2 % (0.0-1.0); %Eosinophils 1.1 % (0.0-10.0); %Lymphocytes 8.1 % (21.0-51.0); %Monocytes 1.1 % (0.0-10.0); %Neutrophils 89.4 % (42.0-75.0); Hemoglobin 7.9 g/dL (12.0-16.0); Mean Corpuscular HGB CONC 31.9 g/dL (32.0-36.0); Mean Corpuscular Hemoglobin 29.8 pg (27.0-31.0); Mean Corpuscular Volume 93.3 fL (78.0-98.0); Mean Platelet Volume 7.2 fL (7.4-10.4); Platelet Count 179 thou/uL (130-400); RBC Distribution Width 13.3 % (11.5-14.5); Red Blood Cell (RBC) Count 2.66 mill/uL (4.20-5.40); White Blood Cell (WBC) Count 6.1 thou/uL (4.8-10.8)
[2019-03-31 04:15] LABS: INR-International Normal Ratio 1.3; Prothrombin Time 15.8 SEC (12.0-14.7)
[2019-03-31 04:23] LABS: Anion Gap 9 mmol/L (10-20); BUN (Urea Nitrogen) 14 mg/dL (9.8-20.1); Calc. Creatinine Clearance 85 mL/min (70-130); Calcium 8.7 mg/dL (7.8-10.44); Carbon Dioxide 25 mmol/L (23-31); Chloride 109 mmol/L (98-107); Estimated GFR-MDRD Greater than 90; Glucose 68 mg/dL (80-115); Magnesium 1.4 mg/dL (1.6-2.6); Potassium 3.3 mmol/L (3.5-5.1); Sodium 140 mmol/L (136-145)
[2019-03-31 04:57] LABS: ALT (SGPT) 204 U/L (8-55); AST (SGOT) 110 U/L (5-34); Albumin 3.1 g/dL (3.4-4.8); Alkaline Phosphatase 57 U/L (40-150); Bilirubin, Total 1.6 mg/dL (0.2-1.2); Phosphorus 2.4 mg/dL (2.3-4.7); Protein, Total 4.6 g/dL (6.0-8.3)
[2019-03-31] MEDS: Propofol 1,000 MG/100 ML VIAL IV PRN (06:40)
[2019-03-31] MEDS: Lactated Ringer's 1,000 ML IV SCH ×2 (06:41→19:40)
[2019-03-31 07:11] LABS: Actual Bicarbonate (HCO3a) 25.8 mEq/L (22-28); Base Excess (BEa) 0.3 mEq/L (-2.0 to +3.0); CO2 Tension 46.4 mmHg (35.0-45.0); Calcium, Ionized 1.18 mmol/L (1.12-1.30); Carboxyhemoglobin (COHb) 1.5 gm% (0.0-3.0); Hemoglobin (Hb) 6.9 g/dL (12.0-16.0); O2 Tension (PaO2) 93.3 mmHg (> 70.0); Potassium - ABG Lab 3.29 mmol/L (3.70-5.30); pH, Arterial 7.36 (7.35-7.45)
--- NOTE | 2019-03-31 07:56 | RAD ---
XR Chest 1 View Portable HISTORY: Respiratory failure COMPARISON: Previous day FINDINGS: Line and tube placements are unchanged in position. The heart size is normal. There is mild atelectatic change in the left lung base with accompanying small effusion.
[2019-03-31 08:20] LABS: Puncture Site RBA
[2019-03-31] MEDS: Pantoprazole 40 MG VIAL IVP SCH (10:32)
[2019-03-31] MEDS ORDERED: Dextrose 50% Abboject 50 ML SYRINGE ONE (10:33)
[2019-03-31] MEDS: Morphine 2 MG/ML SYRINGE SLOW IVP PRN ×3 (11:06→23:26)
[2019-03-31] MEDS ORDERED: Metoprolol Tartrate 5 MG/5 ML VIAL ONE (12:09)
[2019-03-31] MEDS ORDERED: Metoprolol Tartrate 5 MG/5 ML VIAL IVP SCH (12:15)
--- NOTE | 2019-03-31 12:23 | PRG ---
DATE OF SERVICE: 03/31/2019 SUBJECTIVE: Tasha Shen will awake and she will move all of her extremities. We are decreasing her sedation. Heart rate went up into the 120s, but was in the 90s before her abdominal exam. She makes eye contact. She nods to questions. OBJECTIVE: LUNGS: Her lungs are clear. HEART: Regular rhythm. S1 and S2 are normal. ABDOMEN: Soft and nontender. EXTREMITIES: Without clubbing, cyanosis or edema. LABORATORY DATA: White count 6.1, hemoglobin 7.9, and platelets 179. Sodium 140, potassium 3.3, chloride 109, bicarb 25, BUN 14, and creatinine 0.54. pH 7.36, CO2 of 46, and pO2 of 93. She was somnolent when the blood gas was drawn. Her sedation has been dramatically decreased. She will be placed on a Precedex drip and kept on a low dose of fentanyl for pain control. Her chest x-ray today is clear. She has some mild pulmonary edema yesterday. This is resolved. IMPRESSION: Postoperative mechanical ventilation after 2 abdominal procedures for perforated colon due to endoscopy for a stricture. She may be weanable to extubate her tomorrow. Overall, she looks good. She will continue with the antimicrobial therapy. She will need intravenous nutritional support at some point if she does not develop return of bowel function, which I would guess would be unlikely in short term. CRITICAL CARE TIME: 30 minutes. Job ID: [id number] MTDD
[2019-03-31] MEDS ORDERED: Magnesium Sulfate 3 GM in Sodium Chloride 0.9% 100 ML IVPB SCH (15:45)
[2019-03-31] MEDS ORDERED: Potassium Chloride 40 MEQ in Premix Bag 1 BAG IVPB SCH (16:00)
--- NOTE | 2019-03-31 16:28 | PRG ---
DATE OF SERVICE: SUBJECTIVE: Tasha Shen is doing well today. Dr. Castellanos plans to wean her off the ventilator tomorrow. Her vital signs have been stable. Heart rate 91 and BP 132/64. She is on fentanyl and Precedex. She has been started on Lopressor as she is on metoprolol in the past. She has C diff colitis, that has been discussed with Dr. 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 The patient's gastric drainage is only 200 in the last 24 hours. OBJECTIVE: VITAL SIGNS: 132/64, 92, 97%. Urine output is good. LUNGS: Clear to auscultation. No wheezing. CARDIAC: Regular rate and rhythm. ABDOMEN: Soft. LABORATORY DATA: This morning, her sodium is 140, potassium 3.3, BUN 14, and creatinine 0.54. Magnesium is low. Phosphorus is normal at 2.4. Total bilirubin elevated at 1.6. Pre-albumin is less than 5 (normal 14 to 37). ASSESSMENT/PLAN: 1. The patient is doing well. Hopefully, we can wean her off the ventilator tomorrow. She has severe malnutrition. We will start her on TPN as well as initiate trickle tube feedings today. Hopefully, we can wean the TPN if she tolerates tube feedings. If she is extubated, hopefully, we can start her on a diet soon. We would like to keep her on TPN until we assure that transition. 2. Clostridium difficile colitis. Discussion per above. 3. Low magnesium, replaced. 4. Low potassium, replaced. Job ID: [id number]
[2019-03-31] MEDS: Enoxaparin Sodium 40 MG/0.4 ML SYRINGE SC SCH (21:40)
[2019-03-31] MEDS ORDERED: SODIUM CHLORIDE IV SCH (22:00)
[2019-03-31] MEDS ORDERED: SODIUM ACETATE IV SCH (22:00)
[2019-03-31] MEDS ORDERED: [UNRECOGNIZED DRUG - OTHER] IV SCH (22:00)
[2019-03-31] MEDS ORDERED: POTASSIUM ACETATE IV SCH (22:00)
[2019-04-01] MEDS: Meropenem 2 GM in Sodium Chloride 0.9% 100 ML IVPB SCH ×3 (02:08→18:21)
[2019-04-01] MEDS: Albuterol Sulfate 2.5 mg/3 ml Neb NEB SCH ×6 (02:23→22:29)
[2019-04-01 05:03] LABS: Anion Gap 8 mmol/L (10-20); BUN (Urea Nitrogen) 20 mg/dL (9.8-20.1); Calc. Creatinine Clearance 94 mL/min (70-130); Calcium 8.5 mg/dL (7.8-10.44); Carbon Dioxide 27 mmol/L (23-31); Chloride 107 mmol/L (98-107); Estimated GFR-MDRD Greater than 90; Glucose 305 mg/dL (80-115); Magnesium 1.9 mg/dL (1.6-2.6); Potassium 3.4 mmol/L (3.5-5.1); Sodium 139 mmol/L (136-145)
[2019-04-01 05:04] LABS: ALT (SGPT) 124 U/L (8-55); AST (SGOT) 48 U/L (5-34); Albumin 2.8 g/dL (3.4-4.8); Alkaline Phosphatase 86 U/L (40-150); Bilirubin, Direct 1.9 mg/dL (0.1-0.3); Bilirubin, Total 2.8 mg/dL (0.2-1.2); Protein, Total 4.7 g/dL (6.0-8.3)
[2019-04-01 05:09] LABS: Band 18 % (5-11); Eosinophils 1 % (0-10); Hemoglobin 8.2 g/dL (12.0-16.0); Lymphocytes 7 % (21-51); MDiff Complete? YES; Mean Corpuscular HGB CONC 32.6 g/dL (32.0-36.0); Mean Corpuscular Hemoglobin 30.3 pg (27.0-31.0); Mean Platelet Volume 7.8 fL (7.4-10.4); Monocytes 2 % (0-10); Neutrophil 72 % (42-75); Platelet Count 174 thou/uL (130-400); Platelet Morphology Comment Appears Adequate; RBC Distribution Width 13.1 % (11.5-14.5); Red Blood Cell (RBC) Count 2.69 mill/uL (4.20-5.40); White Blood Cell (WBC) Count 5.3 thou/uL (4.8-10.8)
--- NOTE | 2019-04-01 07:26 | RAD ---
EXAM: Single view of the chest HISTORY: Ventilated patient with respiratory failure COMPARISON: 03/31/2019 FINDINGS: Single view of the chest shows a normal sized cardiomediastinal silhouette. The lines and tubes are unchanged in position. Bilateral veil-like opacities may represent layering pleural effusions. There is no evidence of consolidation or mass. The bones are unremarkable. IMPRESSION: Stable exam
[2019-04-01] MEDS: Lactated Ringer's 1,000 ML IV SCH ×2 (08:25→09:14)
[2019-04-01] MEDS: Pantoprazole 40 MG VIAL IVP SCH (09:14)
[2019-04-01] MEDS: Acetaminophen 1,000 MG in Premix Bag 1 BAG IVPB PRN ×3 (09:15→16:39)
[2019-04-01] MEDS: HumaLOG 300 UNITS/3 ML VIAL SC PRN ×3 (09:17→22:51)
[2019-04-01] MEDS ORDERED: Lactated Ringer's 1,000 ML IV SCH (10:01)
[2019-04-01] MEDS ORDERED: Dextrose 5% in Water 1,000 ML IV PRN (10:29)
[2019-04-01] MEDS ORDERED: Dextrose 50% Abboject 50 ML SYRINGE SLOW IVP PRN (10:29)
[2019-04-01] MEDS ORDERED: Magnesium 2 GM/50 ML 2 GM in Premix Bag 1 BAG IVPB SCH (10:30)
[2019-04-01] MEDS ORDERED: Potassium Chloride 40 MEQ in Premix Bag 1 BAG IVPB SCH (10:30)
--- NOTE | 2019-04-01 10:31 | PRG ---
DATE OF SERVICE: 04/01/2019 SERVICE: Pulmonary Medicine. INTERVAL HISTORY: The patient is doing outstanding from respiratory standpoint. She remains extraordinarily weak. This morning, we put on a spontaneous breathing trial at 5/5, but she has difficulty lifting her head up off the pillow. She is much improved compared to yesterday. There has been no interval change to her condition overnight. Her urine output is excellent, and her sugars have been quite elevated. Otherwise, nursing reports no events. PHYSICAL EXAMINATION: VITAL SIGNS: Afebrile currently with a T-max overnight of 100.7. Pulse 75, blood pressure 171/90, respirations 20, and saturation 99% on 23% FiO2 and a PEEP of 5. HEENT: Normocephalic and atraumatic. Sclerae white. Conjunctivae pink. Oral mucosa is moist without lesions. LUNGS: Decent air entry. No significant crackles or wheezing are present. HEART: Normal rate and regular. ABDOMEN: Touch firm, but not rigid. It is tender to palpation throughout. There is positive rebound tenderness. Bowel sounds are hypoactive. GENITOURINARY: Alcocer catheter in place. NEUROLOGIC: Grossly nonfocal. She demonstrates diffuse weakness, which is quite pronounced. LABORATORY DATA: WBC 5.3, hemoglobin 8.2, platelets 174,000. Band count is downtrending to 18%. INR 1.3. A pH 7.36, pCO2 of 46, pO2 of 93. AST is downtrending to 48, ALT downtrending to 124. Magnesium falls within normal limits. CBC is otherwise unremarkable. Potassium 3.4. Magnesium 1.9 and phosphorus 2.4. IMAGING STUDIES: Chest x-ray demonstrates layering effusions bilaterally. No consolidating changes or masses are appreciated. Lines and tubes remain stable. ASSESSMENT: 1. Gross peritonitis secondary to perforated viscus. 2. Status post two surgical procedures. 3. Recent history of Clostridium difficile infection. 4. Severe sepsis. 5. Acute kidney injury, resolved. DISCUSSION AND PLAN: I will replace magnesium and the potassium today. We will repeat laboratories tomorrow morning. We will get her into a chair today, and involve Physical Therapy and Occupational Therapy. We will give her sliding scale insulin, which would be more aggressive. Hopefully, she will come off the TPN over the next 24 hours. We will try to keep our total fluids at or less than 100. Multiple adjustments have been made to the ventilator today. My plan is to extubate her tomorrow if she demonstrates improving strength. We will minimize sedation through the day. Critical care time: 30 minutes. Job ID: [id number] MTDD
[2019-04-01] MEDS: Morphine 2 MG/ML SYRINGE SLOW IVP PRN ×6 (10:54→22:28)
--- NOTE | 2019-04-01 11:35 | PRG ---
DATE OF SERVICE: 04/01/2019 SUBJECTIVE: Tasha Shen is doing well today. She is on CPAP. Dr. Silva is planning on extubating her possibly tomorrow as he feels that she is too weak to reliably extubate her today. Precedex has been discontinued. She is tolerating her tube feedings and is at the target rate. She is on TPN. Accu-Cheks are high, thus we will change her to aggressive sliding scale and increase the insulin and TPN. The patient has been severely malnourished, has not eaten well in the last several months due to the sigmoid stricture. OBJECTIVE: VITAL SIGNS: Blood pressure 132/65 and pulse 75. LUNGS: Clear to auscultation. CARDIAC: Regular rate and rhythm without murmur or gallop. ABDOMEN: Soft, postoperative tenderness. Abdominal wound VAC in place. EXTREMITIES: Unremarkable. LABORATORY DATA: The patient's sodium is 139, potassium 3.4, BUN 20, creatinine is 0.49, GFR greater than 90, glucose 305 to 295. Bilirubin slightly elevated 2.8 up from 1.9 yesterday. White count 5 and hemoglobin 8.2. ASSESSMENT AND PLAN: 1. Malnourishment. Continue tube feedings. Continue TPN. Expect to be able to discontinue the TPN tomorrow. She tolerates her tube feedings today when she is extubated. Might consider leaving the NG tube down for now to give her reliable nutrition until she can tolerate a diet. Consideration for placement of Dobbhoff could be given. 2. Respiratory failure. 3. Clostridium difficile colitis. I talked to Dr. Agee, who wants to avoid using Vancocin at this time due to the recent fecal transplant. The patient is having stool for colostomy and colostomy is healthy. 4. We will adjust her TPN for elevated glucose. Increase insulin and the TPN, and add magnesium and potassium to the TPN. Job ID: [id number]
--- NOTE | 2019-04-01 13:26 | EKG ---
Test Reason : Blood Pressure : / mmHG Vent. Rate : 073 BPM Atrial Rate : 073 BPM P-R Int : 120 ms QRS Dur : 124 ms QT Int : 456 ms P-R-T Axes : 063 022 -13 degrees QTc Int : 502 ms Poor data quality, interpretation may be adversely affected Normal sinus rhythm Possible Left atrial enlargement Right bundle branch block Inferior infarct , age undetermined Abnormal ECG When compared with ECG of 09-OCT-2016 07:48, Inferior infarct is now Present Confirmed by DR. Logan LARSEN ([id number]) on 04/01/2019 1:26:37 PM Referred By: MAGY Confirmed By:DR. Logan LARSEN
[2019-04-01 17:31] LABS: Bilirubin Negative (Negative); Blood, Urine Small (Negative); Clarity CLEAR (Clear); Glucose, Urine (Dipstick) >=1000 mg/dL (Negative); Leukocyte Negative (Negative); Nitrite Negative (Negative); Protein, Urine (Dipstick) 30 mg/dL (Neg-Trace); Specific Gravity, Urine 1.024 (1.002-1.036); Urobilinogen 0.2 mg/dL (0.2-1.0)
[2019-04-01 17:32] LABS: Bacteria/HPF None Seen HPF (None Seen); Hyaline Casts/LPF 0-3 HYALINE CAST LPF (0-3 Hyaline); Pathc Cast-AUWi Flag 0.13 (0-2.49); RBC/HPF 0-3 HPF (0-3); Squamous Epithelial None Seen HPF (0-3); WBC/HPF None Seen HPF (0-3)
[2019-04-01] MEDS: Enoxaparin Sodium 40 MG/0.4 ML SYRINGE SC SCH (20:29)
[2019-04-01] MEDS ORDERED: POTASSIUM ACETATE IV SCH ×2 (22:00)
[2019-04-01] MEDS ORDERED: [UNRECOGNIZED DRUG - OTHER] IV SCH (22:00)
[2019-04-01] MEDS ORDERED: [UNRECOGNIZED DRUG - OTHER] IV SCH (22:00)
[2019-04-01] MEDS ORDERED: SODIUM CHLORIDE IV SCH ×2 (22:00)
[2019-04-01] MEDS ORDERED: SODIUM ACETATE IV SCH ×2 (22:00)
[2019-04-02] MEDS: Meropenem 2 GM in Sodium Chloride 0.9% 100 ML IVPB SCH ×3 (01:35→17:24)
[2019-04-02] MEDS: Morphine 2 MG/ML SYRINGE SLOW IVP PRN ×4 (01:36→14:55)
[2019-04-02] MEDS: Albuterol Sulfate 2.5 mg/3 ml Neb NEB SCH ×6 (02:10→22:10)
[2019-04-02] MEDS: Acetaminophen 1,000 MG in Premix Bag 1 BAG IVPB PRN (04:16)
[2019-04-02 06:27] LABS: Anion Gap 12 mmol/L (10-20); BUN (Urea Nitrogen) 21 mg/dL (9.8-20.1); Calc. Creatinine Clearance 86 mL/min (70-130); Calcium 8.7 mg/dL (7.8-10.44); Carbon Dioxide 22 mmol/L (23-31); Chloride 111 mmol/L (98-107); Estimated GFR-MDRD Greater than 90; Glucose 340 mg/dL (80-115); Potassium 4.2 mmol/L (3.5-5.1); Sodium 141 mmol/L (136-145)
[2019-04-02 06:55] LABS: Band 3 % (5-11); Hemoglobin 9.3 g/dL (12.0-16.0); Lymphocytes 11 % (21-51); MDiff Complete? YES; Mean Corpuscular Hemoglobin 30.8 pg (27.0-31.0); Mean Corpuscular Volume 93.5 fL (78.0-98.0); Mean Platelet Volume 8.2 fL (7.4-10.4); Monocytes 5 % (0-10); Neutrophil 81 % (42-75); Platelet Count 224 thou/uL (130-400); RBC Distribution Width 13.6 % (11.5-14.5); Red Blood Cell (RBC) Count 3.02 mill/uL (4.20-5.40); White Blood Cell (WBC) Count 8.6 thou/uL (4.8-10.8)
[2019-04-02] MEDS: Metoprolol Tartrate 5 MG/5 ML VIAL IVP PRN ×3 (09:11→20:41)
[2019-04-02] MEDS: Sodium Chloride 0.9% (PF) 10 ML VIAL FS PRN (09:20)
[2019-04-02] MEDS: Pantoprazole 40 MG VIAL IVP SCH (09:20)
[2019-04-02] MEDS: HumaLOG 300 UNITS/3 ML VIAL SC PRN ×3 (10:49→22:25)
--- NOTE | 2019-04-02 11:01 | PRG ---
DATE OF SERVICE: 04/02/2019 SUBJECTIVE: Tasha Shen is in ICU. She is on the ventilator. She has had problems with atrial fibrillation, given Lopressor p.r.n. Her heart rate has been up to 140, now it is 80 and sinus. If the patient appears to be tolerating tube feedings with residuals of 100 and 200, which are acceptable. She is on TPN. Accu-Cheks have been high. Awaiting the new TPN bag mixture. LABORATORY DATA: Sodium 141, potassium 4.2, carbon dioxide 22, BUN 21, and creatinine 0.55. Hemoglobin 9.3 and white count 8.6. Colostomy output present. Urine output excellent at 5.8 L. OBJECTIVE: HEAD, EARS, EYES, NOSE, AND THROAT: Unremarkable. LUNGS: Clear to auscultation. CARDIAC: Regular rate and rhythm without murmur or gallop. ABDOMEN: Soft and nontender. Wound VAC, midline incision, in place. Colostomy healthy. ASSESSMENT AND PLAN: The patient is doing well. We would discontinue the TPN. Continue tube feedings. Free water per feeding tube. TKO IV fluids mobile. Wean vent per Pulmonary. Clostridium difficile colitis seems to be stable. Respiratory failure per Pulmonary. Job ID: [id number]
--- NOTE | 2019-04-02 11:16 | PRG ---
DATE OF SERVICE: 04/02/2019 SERVICE: Pulmonary Medicine. INTERVAL HISTORY: The patient did fine overnight. There were no significant respiratory issues. She has intermittent abdominal discomfort that we have been treating with pain medication. The small dose of pain medication really causes her to become more obtunded. She is awake and following some simple commands, but demonstrates pretty profound weakness. PHYSICAL EXAMINATION: VITAL SIGNS: Afebrile, pulse 92, blood pressure 167/87, respirations 21, and saturation 96% on 21% FiO2 and PEEP of 5. GENERAL: She is somnolent, but does follow some simple commands. HEENT: Normocephalic and atraumatic. Sclerae white. Conjunctivae pink. Oral mucosa is moist without lesions. LUNGS: Decent air entry. There are no crackles or prolonged expiratory phase present. HEART: Normal rate and regular. ABDOMEN: Soft. Tender to palpation throughout. Bowel sounds are hypoactive. GENITOURINARY: Alcocer catheter in place. NEUROLOGIC: Grossly nonfocal. LABORATORY DATA: WBC 8.6, hemoglobin 9.3 and improving, and platelets 224,000. INR 1.3. Creatinine 0.55 and BUN 21. Sodium 141 and gently up trending, chloride 111 and up-trending. Respiratory culture is growing yeast species. Blood cultures x2 are unremarkable. ASSESSMENT: 1. Gross peritonitis, secondary to perforated viscus. 2. Status post 2 abdominal procedures. 3. Recent history of Clostridium difficile infection, resolved. 4. Severe sepsis. 5. Acute kidney injury, resolved. DISCUSSION AND PLAN: I am going to discontinue all sedation. We will drop her p.r.n. morphine to 1 mg q.2 hours as needed. Precedex will be initiated for any sedation needs. I will put her on pressure support ventilation. Once she is awake enough, extubation will be performed. I will give the patient a laboratory holiday tomorrow morning. Critical care time: 30 minutes. Job ID: [id number] MTDD
[2019-04-02] MEDS ORDERED: Fluconazole 100 MG TAB PO SCH (11:45)
[2019-04-02] MEDS: Sodium Chloride 0.45% 1,000 ML IV SCH (12:53)
[2019-04-02] MEDS: Vancomycin HCl 1 GM in Premix Bag 1 BAG IVPB SCH (21:03)
[2019-04-02] MEDS: Acetaminophen 650 MG/20.3 ML UDCUP PO PRN (21:03)
[2019-04-02] MEDS: Metoprolol Tartrate 25 MG TAB PER TUBE SCH (21:04)
[2019-04-02] MEDS: Senokot S 8.6-50 MG TAB PO SCH (21:04)
[2019-04-02] MEDS: Enoxaparin Sodium 40 MG/0.4 ML SYRINGE SC SCH (21:04)
[2019-04-02] MEDS: Amlodipine 10 MG TAB PO SCH (21:04)
[2019-04-02] MEDS: Gabapentin 100 MG CAP PO SCH (21:05)
[2019-04-02] MEDS: Saccharomyces boulardii 250 MG CAP PO SCH (21:05)
[2019-04-03] MEDS: Meropenem 2 GM in Sodium Chloride 0.9% 100 ML IVPB SCH ×3 (01:04→18:20)
[2019-04-03] MEDS: Sodium Chloride 0.45% 1,000 ML IV SCH ×3 (01:05→17:59)
[2019-04-03] MEDS: Albuterol Sulfate 2.5 mg/3 ml Neb NEB SCH ×6 (02:13→21:40)
[2019-04-03] MEDS: HumaLOG 300 UNITS/3 ML VIAL SC PRN ×4 (05:15→22:47)
[2019-04-03] MEDS: Acetaminophen 650 MG/20.3 ML UDCUP PO PRN ×2 (05:22→21:37)
[2019-04-03] MEDS: Levothyroxine Sodium 75 MCG TAB PO SCH (05:22)
[2019-04-03 06:43] LABS: Base Excess (BEa) -4.7 mEq/L (-2.0 to +3.0); Calcium, Ionized 1.19 mmol/L (1.12-1.30); Hemoglobin (Hb) 9.6 g/dL (12.0-16.0); O2 Tension (PaO2) 86.2 mmHg (> 70.0)
[2019-04-03 06:52] LABS: pH, Arterial 7.51 (7.35-7.45)
[2019-04-03 06:53] LABS: ALV-art Gradient 100.325 (0-20); CO2 Tension 21.9 mmHg (35.0-45.0); Puncture Site RRA
[2019-04-03] MEDS: Sodium Chloride 0.9% (PF) 10 ML VIAL FS PRN (08:56)
[2019-04-03] MEDS: Pantoprazole 40 MG VIAL IVP SCH (08:57)
[2019-04-03] MEDS: Vancomycin HCl 1 GM in Premix Bag 1 BAG IVPB SCH ×2 (08:57→21:28)
[2019-04-03] MEDS: DULoxetine 30 MG CAP PO SCH (08:58)
[2019-04-03] MEDS: Fluconazole 100 MG TAB PO SCH (08:58)
[2019-04-03] MEDS: Ramipril 5 MG CAP PO SCH (08:59)
[2019-04-03] MEDS: Aspirin 81 mg Enteric Coated Tablet PO SCH (09:00)
[2019-04-03] MEDS: Saccharomyces boulardii 250 MG CAP PO SCH ×2 (09:01→21:24)
[2019-04-03] MEDS: Metoprolol Tartrate 25 MG TAB PER TUBE SCH ×2 (09:01→21:24)
[2019-04-03] MEDS: Senokot S 8.6-50 MG TAB PO SCH ×2 (09:01→21:24)
--- NOTE | 2019-04-03 09:55 | PRG ---
DATE OF SERVICE: 04/03/2019 SUBJECTIVE: Remains intubated on the vent, on Precedex at 0.3, appears to be encephalopathic. Surgery saw her yesterday, is considering starting tube feeding. She has C diff colitis. She barely opens eyes, very weak. OBJECTIVE: VITAL SIGNS: Pulse is 97, blood pressure is low at 114/61, saturations 90%, and respiratory rate 22. I's and O's have been consistently negative. CHEST: Decreased breath sounds. No wheezing. CARDIAC: Normal S1 and S2. No gallops. ABDOMEN: Soft. LABORATORY DATA: Blood gas shows respiratory alkalosis. PO2 is 86, pCO2 tidal volume, PEEP 5 otherwise, white count is only 8000, platelet count is normal. Her last chemistry profile shows normal electrolytes. ASSESSMENT AND PLAN: Status post laparoscopy, severe deconditioning, respiratory failure, encephalopathy. She is on meropenem, broad-spectrum antibiotics including vancomycin. I would hold off blood pressure medication until it is improved. Try to minimize sedation. Adjust vent. Continue PT. Hopefully, try and wean in the next day or two. One-half hour of critical care time. Job ID: [id number]
[2019-04-03] MEDS: Amlodipine 10 MG TAB PO SCH (21:25)
[2019-04-03] MEDS: Multivit, Therapeutic 1 TAB PO SCH (21:25)
[2019-04-03] MEDS: Gabapentin 100 MG CAP PO SCH (21:25)
[2019-04-03] MEDS: Enoxaparin Sodium 40 MG/0.4 ML SYRINGE SC SCH (21:27)
--- NOTE | 2019-04-03 23:33 | PRG ---
DATE OF SERVICE: 04/03/2019 SUBJECTIVE: Tasha Shen is doing well today. She remains on the ventilator. She is not able to be weaned from the ventilator. OBJECTIVE: VITAL SIGNS: Heart rate 88, blood pressure 118/62. She is tolerating her tube feedings, having colostomy output. LUNGS: Clear to auscultation. CARDIAC: Regular rate and rhythm without murmur or gallop. ABDOMEN: Soft, nontender. EXTREMITIES: Unremarkable. LABORATORY DATA: Labs not obtained today. We will check tomorrow. ASSESSMENT AND PLAN: Stable respiratory failure. Continue efforts to wean ventilator. Check labs tomorrow. Deconditioning, continue physical therapy. Job ID: [id number]
[2019-04-04] MEDS: Meropenem 2 GM in Sodium Chloride 0.9% 100 ML IVPB SCH ×3 (01:38→17:33)
[2019-04-04] MEDS: Albuterol Sulfate 2.5 mg/3 ml Neb NEB SCH ×4 (02:08→14:27)
[2019-04-04 04:56] LABS: #Monocytes 0.4 thou/uL (0.11-0.59); #Neutrophils 6.4 thou/uL (1.40-6.50); %Eosinophils 0.5 % (0.0-10.0); %Lymphocytes 13.2 % (21.0-51.0); %Monocytes 5.1 % (0.0-10.0); %Neutrophils 81.2 % (42.0-75.0); Hemoglobin 7.7 g/dL (12.0-16.0); Mean Corpuscular HGB CONC 31.9 g/dL (32.0-36.0); Mean Corpuscular Hemoglobin 29.5 pg (27.0-31.0); Mean Corpuscular Volume 92.6 fL (78.0-98.0); Mean Platelet Volume 8.5 fL (7.4-10.4); Platelet Count 202 thou/uL (130-400); RBC Distribution Width 13.7 % (11.5-14.5); White Blood Cell (WBC) Count 7.9 thou/uL (4.8-10.8)
[2019-04-04] MEDS: HumaLOG 300 UNITS/3 ML VIAL SC PRN ×4 (05:15→21:59)
[2019-04-04] MEDS: Levothyroxine Sodium 75 MCG TAB PO SCH (05:15)
[2019-04-04] MEDS: Sodium Chloride 0.45% 1,000 ML IV SCH ×2 (05:16→17:46)
[2019-04-04 05:31] LABS: ALT (SGPT) 157 U/L (8-55); AST (SGOT) 168 U/L (5-34); Albumin 2.6 g/dL (3.4-4.8); Alkaline Phosphatase 113 U/L (40-150); Anion Gap 10 mmol/L (10-20); BUN (Urea Nitrogen) 31 mg/dL (9.8-20.1); Bilirubin, Total 0.9 mg/dL (0.2-1.2); Calc. Creatinine Clearance 75 mL/min (70-130); Calcium 7.9 mg/dL (7.8-10.44); Carbon Dioxide 19 mmol/L (23-31); Chloride 113 mmol/L (98-107); Estimated GFR-MDRD Greater than 90; Globulin 1.9 g/dL (2.4-3.5); Glucose 233 mg/dL (80-115); Magnesium 1.4 mg/dL (1.6-2.6); Potassium 3.4 mmol/L (3.5-5.1); Protein, Total 4.5 g/dL (6.0-8.3); Sodium 139 mmol/L (136-145)
[2019-04-04 07:09] LABS: Actual Bicarbonate (HCO3a) 17.8 mEq/L (22-28); Base Excess (BEa) -4.4 mEq/L (-2.0 to +3.0); Calcium, Ionized 1.17 mmol/L (1.12-1.30); Carboxyhemoglobin (COHb) 0.9 gm% (0.0-3.0); Hemoglobin (Hb) 8.3 g/dL (12.0-16.0); O2 Tension (PaO2) 103.7 mmHg (> 70.0); Potassium - ABG Lab 3.16 mmol/L (3.70-5.30)
[2019-04-04 07:10] LABS: ALV-art Gradient 81.075 (0-20); CO2 Tension 23.3 mmHg (35.0-45.0); Puncture Site RR
[2019-04-04 08:21] LABS: Vancomycin, Trough 12.6 ug/mL
[2019-04-04] MEDS: DULoxetine 30 MG CAP PO SCH (09:17)
[2019-04-04] MEDS: Ramipril 5 MG CAP PO SCH (09:17)
[2019-04-04] MEDS: Saccharomyces boulardii 250 MG CAP PO SCH ×2 (09:17→21:27)
[2019-04-04] MEDS: Aspirin 81 mg Enteric Coated Tablet PO SCH (09:17)
[2019-04-04] MEDS: Fluconazole 100 MG TAB PO SCH (09:18)
[2019-04-04] MEDS: Pantoprazole 40 MG VIAL IVP SCH (09:18)
[2019-04-04] MEDS: Metoprolol Tartrate 25 MG TAB PER TUBE SCH ×2 (09:18→21:26)
[2019-04-04] MEDS: Vancomycin HCl 1 GM in Premix Bag 1 BAG IVPB SCH (09:18)
[2019-04-04] MEDS: Senokot S 8.6-50 MG TAB PO SCH ×2 (09:18→21:27)
[2019-04-04] MEDS ORDERED: Insulin Glargine 15 UNITS in Pre-Filled Syringe 1 EACH SC SCH (11:15)
[2019-04-04] MEDS ORDERED: Magnesium 2 GM/50 ML 2 GM in Premix Bag 1 BAG IVPB SCH (11:15)
[2019-04-04] MEDS: Fluconazole In NaCl,Iso-Osm 400 MG in Premix Bag 1 BAG IVPB SCH (11:54)
[2019-04-04] MEDS: Acetaminophen 650 MG/20.3 ML UDCUP PO PRN ×2 (12:30→21:28)
--- NOTE | 2019-04-04 15:47 | PRG ---
DATE OF SERVICE: 04/04/2019 SUBJECTIVE: Tasha Shen was awake and alert, give me the thumbs-up sign when I made rounds this morning. OBJECTIVE: VITAL SIGNS: Heart rate is 80, respiratory rate is 20, and blood pressure 113/53. GENERAL: She is in no distress. She passed a leak test, her minute volume was 8 L a minute on 7 of pressure support and 5 of PEEP. LUNGS: Clear. HEART: Regular rhythm. S1 and S2 are normal. ABDOMEN: Soft and nontender. EXTREMITIES: Without clubbing, cyanosis, or edema. LABORATORY DATA: White count 7.9, hemoglobin 7.7, and platelets 302,000. Sodium 139, potassium 3.4, chloride 113, bicarb 19, BUN 31, and creatinine 0.6. Magnesium is 1.4, it is being replaced. Liver enzymes were mildly elevated; AST was 168, ALT 157, alkaline phosphatase was normal. Blood gas; pH 7.5, CO2 of 23, and pO2 of 103. IMPRESSION: Status post mechanical ventilation after laparotomy. Clinically doing well. I felt she is a candidate for extubation. I met with family, answered all their questions. She subsequently has been extubated and is doing well postextubation with no cough, stridor or respiratory distress. CRITICAL CARE TIME: 30 minutes. Job ID: [id number]
--- NOTE | 2019-04-04 18:56 | PRG ---
DATE OF SERVICE: 04/04/2019 SUBJECTIVE: Tasha Shen is in ICU. She has been extubated today by Dr. Castellanos. She is awake and alert and appreciative for her care. She is tolerating her tube feedings. Ostomy output is good. OBJECTIVE: VITAL SIGNS: Heart rate 78 and blood pressure 125/73. LUNGS: Clear to auscultation. CARDIAC: Regular rate and rhythm without murmur or gallop. ABDOMEN: Soft and nontender. LABORATORY DATA: Hemoglobin 7.7 and white count 7.9. Basic metabolic profile normal. Potassium 3.4 and magnesium 1.4. ASSESSMENT AND PLAN: 1. Low magnesium. Replace. Recheck in the morning. 2. She is on tube feedings through an nasogastric tube. After Speech evaluation for swallowing tomorrow, she can advance to diet as recommended by Speech. We would remove her nasogastric tube tomorrow and advance her diet. 3. Deconditioning, will need physical therapy. 4. Rehab consult. Job ID: [id number]
[2019-04-04] MEDS ORDERED: Vancomycin HCl 1.25 GM in Sodium Chloride 0.9% 250 ML 250 ML IVPB SCH (21:00)
[2019-04-04] MEDS: Gabapentin 100 MG CAP PO SCH (21:27)
[2019-04-04] MEDS: Multivit, Therapeutic 1 TAB PO SCH (21:27)
[2019-04-04] MEDS: Enoxaparin Sodium 40 MG/0.4 ML SYRINGE SC SCH (21:28)
[2019-04-04] MEDS: Amlodipine 10 MG TAB PO SCH (21:28)
[2019-04-04] MEDS: Morphine 2 MG/ML SYRINGE SLOW IVP PRN (22:15)
[2019-04-05] MEDS: Sodium Chloride 0.45% 1,000 ML IV SCH ×3 (01:06→22:18)
[2019-04-05] MEDS: Meropenem 2 GM in Sodium Chloride 0.9% 100 ML IVPB SCH ×3 (02:20→17:30)
[2019-04-05] MEDS: Levothyroxine Sodium 75 MCG TAB PO SCH (06:13)
[2019-04-05] MEDS: Acetaminophen 650 MG/20.3 ML UDCUP PO PRN (06:13)
[2019-04-05] MEDS: Saccharomyces boulardii 250 MG CAP PO SCH ×2 (07:45→22:17)
[2019-04-05] MEDS: Metoprolol Tartrate 25 MG TAB PER TUBE SCH ×2 (07:45→22:16)
[2019-04-05] MEDS: Senokot S 8.6-50 MG TAB PO SCH ×2 (07:45→22:17)
[2019-04-05] MEDS: DULoxetine 30 MG CAP PO SCH (07:45)
[2019-04-05] MEDS: Pantoprazole 40 MG VIAL IVP SCH (07:46)
[2019-04-05] MEDS: Aspirin 81 mg Enteric Coated Tablet PO SCH (07:46)
[2019-04-05] MEDS: Ramipril 5 MG CAP PO SCH (07:46)
--- NOTE | 2019-04-05 08:11 | PRG ---
DATE OF SERVICE: 04/05/2019 SUBJECTIVE: Ms. Shen is doing well today. She is in ICU C1. She was extubated yesterday. She is doing well. She complains of soreness this morning. Her nurse is working towards getting her up in a chair. She has an NG tube in place that she is tolerating tube feeding. She is having colostomy output. OBJECTIVE: VITAL SIGNS: Heart rate 89, respiratory rate 17, and blood pressure 131/59. LUNGS: Clear to auscultation. CARDIAC: Regular rate and rhythm without murmur or gallop. ABDOMEN: Soft. LABORATORY DATA: This morning, her hemoglobin is 7.7 and white count is 7.9. Basic metabolic profile is not available yet. Accu-Cheks 150 to 231. ASSESSMENT AND PLAN: Status post subtotal colectomy for diverticular stricture. Pathology reveals absence of any malignancy. The patient had a right colon resection due to ischemia. The patient is doing well postoperatively. She will need aggressive physical therapy for deconditioning. We will consult rehab and manager case management for discharge planning. We will recheck her stool for Clostridium difficile as she had a fecal transfer prior to her operation. We have held off on Vancocin postoperatively per Gastroenterology request to allow the fecal transplant to be effective. Job ID: [id number]
[2019-04-05 08:14] LABS: Anion Gap 11 mmol/L (10-20); BUN (Urea Nitrogen) 21 mg/dL (9.8-20.1); Calc. Creatinine Clearance 90 mL/min (70-130); Calcium 7.8 mg/dL (7.8-10.44); Carbon Dioxide 19 mmol/L (23-31); Chloride 113 mmol/L (98-107); Estimated GFR-MDRD Greater than 90; Glucose 131 mg/dL (80-115); Sodium 140 mmol/L (136-145)
[2019-04-05] MEDS: metFORMIN 500 MG TAB PO SCH ×2 (08:22→17:30)
[2019-04-05] MEDS: Insulin Glargine 15 UNITS in Pre-Filled Syringe 1 EACH SC SCH (08:23)
[2019-04-05] MEDS: Morphine 2 MG/ML SYRINGE SLOW IVP PRN ×4 (08:38→22:13)
[2019-04-05 10:49] VITALS: BMI 21.0
[2019-04-05] MEDS: Potassium Citrate 10 MEQ TAB PO SCH (11:05)
[2019-04-05] MEDS: Fluconazole In NaCl,Iso-Osm 400 MG in Premix Bag 1 BAG IVPB SCH (11:09)
[2019-04-05] MEDS: HumaLOG 300 UNITS/3 ML VIAL SC PRN ×2 (13:03→22:27)
[2019-04-05] MEDS: traMADol HCl 50 MG TAB PO PRN (13:39)
--- NOTE | 2019-04-05 16:07 | PRG ---
DATE OF SERVICE: 04/05/2019 SUBJECTIVE: Ms. Shen is eating solid food. She is not having any abdominal cramping. She is not having any nausea. OBJECTIVE: VITAL SIGNS: Heart rate is 91, respiratory rate is 18, oximetry is 100% on 2 L, and blood pressure is 149/64. LUNGS: Clear. HEART: Regular rate and rhythm. ABDOMEN: Soft and nontender. EXTREMITIES: Without edema. LABORATORY DATA: Sodium 140, potassium 3, chloride 113, bicarb 19, BUN 20, creatinine 0.5, and glucose 124. IMPRESSION: Status post laparotomy, clinically doing well after extubation yesterday. PLAN: Continue per General Surgery. Job ID: [id number] MTDD
[2019-04-05] MEDS: Enoxaparin Sodium 40 MG/0.4 ML SYRINGE SC SCH (22:16)
[2019-04-05] MEDS: Melatonin 3 MG TAB PO PRN (22:16)
[2019-04-05] MEDS: Atorvastatin Calcium 20 MG TAB PO SCH (22:17)
[2019-04-05] MEDS: Gabapentin 100 MG CAP PO SCH (22:18)
[2019-04-05] MEDS: Amlodipine 10 MG TAB PO SCH (22:18)
[2019-04-05] MEDS: Multivit, Therapeutic 1 TAB PO SCH (22:19)
[2019-04-05] MEDS: Citrucel 500 MG TAB PO SCH (22:19)
[2019-04-06] MEDS: Meropenem 2 GM in Sodium Chloride 0.9% 100 ML IVPB SCH (02:53)
[2019-04-06] MEDS: traMADol HCl 50 MG TAB PO PRN ×2 (03:04→21:45)
[2019-04-06] MEDS: Sodium Chloride 0.45% 1,000 ML IV SCH (04:58)
[2019-04-06] MEDS: Levothyroxine Sodium 75 MCG TAB PO SCH (06:40)
[2019-04-06 06:58] LABS: Anion Gap 8 mmol/L (10-20); BUN (Urea Nitrogen) 14 mg/dL (9.8-20.1); Calc. Creatinine Clearance 96 mL/min (70-130); Carbon Dioxide 25 mmol/L (23-31); Chloride 112 mmol/L (98-107); Estimated GFR-MDRD Greater than 90; Glucose 101 mg/dL (80-115); Sodium 142 mmol/L (136-145)
[2019-04-06 07:00] LABS: Hemoglobin 9.6 g/dL (12.0-16.0); Mean Corpuscular HGB CONC 31.5 g/dL (32.0-36.0); Mean Corpuscular Hemoglobin 29.2 pg (27.0-31.0); Mean Corpuscular Volume 92.6 fL (78.0-98.0); Mean Platelet Volume 8.5 fL (7.4-10.4); Platelet Count 594 thou/uL (130-400); RBC Distribution Width 14.3 % (11.5-14.5); Red Blood Cell (RBC) Count 3.29 mill/uL (4.20-5.40)
[2019-04-06] MEDS ORDERED: Potassium Chloride 20 MEQ TAB PO SCH (07:15)
[2019-04-06 07:42] LABS: Band 2 % (5-11); Hypochromia SLIGHT = 6-15 cells (100X) (0-5/hpf); Lymphocytes 5 % (21-51); MDiff Complete? YES; Monocytes 1 % (0-10); Neutrophil 92 % (42-75); Platelet Morphology Comment Appears Increased; Polychromasia MODERATE = 3-4 cells (100X) (0-2/hpf)
--- NOTE | 2019-04-06 07:52 | RAD ---
XR Chest 1 View Portable HISTORY: Increased WBC count COMPARISON: 04/01/2019 FINDINGS: There has been interval removal of the endotracheal and nasogastric tubes. Left subclavian central line remains in place. The heart size is normal. There is mild atelectatic change at the left lung base.
[2019-04-06] MEDS: metFORMIN 500 MG TAB PO SCH ×2 (08:34→19:03)
[2019-04-06] MEDS: DULoxetine 30 MG CAP PO SCH (08:51)
[2019-04-06] MEDS: Ramipril 5 MG CAP PO SCH (08:51)
[2019-04-06] MEDS: Aspirin 81 mg Enteric Coated Tablet PO SCH (08:51)
[2019-04-06] MEDS: Metoprolol Tartrate 25 MG TAB PER TUBE SCH ×2 (08:52→21:28)
[2019-04-06] MEDS: Potassium Citrate 10 MEQ TAB PO SCH (08:53)
[2019-04-06] MEDS: Senokot S 8.6-50 MG TAB PO SCH ×2 (08:53→21:27)
[2019-04-06] MEDS: Saccharomyces boulardii 250 MG CAP PO SCH ×2 (08:53→21:28)
[2019-04-06 09:00] LABS: Vancomycin, Trough 4.8 ug/mL
--- NOTE | 2019-04-06 09:43 | PRG ---
DATE OF SERVICE: 04/06/2019 SUBJECTIVE: Ms. Shen is doing well today. She is tolerating her diet. She is sitting up in bed, eating. Her NG tube has been removed. She still has her Alcocer catheter and we will remove that today. She did have repeat stool studies yesterday, C difficile and antigen and toxin are negative. Her Vancocin was discontinued yesterday as I had discussed this with Dr. Agee, who did not want to use this to hopefully not take away from the efficacy of her fecal transplant. Today, her white count is 21,000, hemoglobin 9.6. Basic metabolic profile; sodium 142, potassium 3.0, BUN 14, and creatinine 0.48. Noting her increased white blood cell count, a chest x-ray was ordered and revealed mild atelectasis. OBJECTIVE: VITAL SIGNS: Temperature 99.1 degrees, pulse rate 107, and blood pressure 157/75. LUNGS: Clear to auscultation. No wheezing. No rhonchi. CARDIAC: Regular rate and rhythm without murmur or gallop. ABDOMEN: Soft and nontender. Wound VAC in place. Colostomy healthy with healthy output. ASSESSMENT AND PLAN: 1. Elevated white count of uncertain etiology. At this point, her GI function is good with her history of Clostridium difficile. I will stop her meropenem. I do not want to precipitate another Clostridium difficile episode that she is negative after the fecal transplant. 2. Status post right colon resection, left colon resection with colostomy and ileocolic anastomosis. Colonic GI function is good. From my standpoint, she could be transferred to rehab tomorrow. We will recheck her CBC in the morning repair and replace her potassium. Job ID: [id number]
[2019-04-06] MEDS: Insulin Glargine 15 UNITS in Pre-Filled Syringe 1 EACH SC SCH (11:38)
[2019-04-06] MEDS ORDERED: HumaLOG 300 UNITS/3 ML VIAL SC PRN (11:39)
[2019-04-06] MEDS: Fluconazole In NaCl,Iso-Osm 400 MG in Premix Bag 1 BAG IVPB SCH (11:46)
--- NOTE | 2019-04-06 14:44 | PRG ---
DATE OF SERVICE: 04/06/2019 SUBJECTIVE: Tasha Shen is on the Surgery floor today. She was transferred to the ICU last night. She is tolerating her diet. She is in bed. She has not yet been out of bed. Orders had been written to do so. OBJECTIVE: VITAL SIGNS: Temperature 98.0 degrees, heart rate 111, respiratory rate 20, blood pressure 163/71. Colostomy output is good. Repeat stool studies, negative for C diff. LUNGS: Clear to auscultation. CARDIAC: Regular rate and rhythm without murmur or gallop. ABDOMEN: Soft, nontender. Colostomy is healthy with adequate output. LABORATORY DATA: White count 21, hemoglobin 9.6. Basic metabolic profile is normal. Potassium low and has been replaced with oral potassium. Chest x-ray ordered due to elevated white count and is unremarkable. She has mild atelectasis. The patient is on meropenem and this has been discontinued today. Her Alcocer catheter is removed. PLAN: To increase activity and transfer to rehab at some point. Job ID: [id number]
--- NOTE | 2019-04-06 18:13 | PRG ---
DATE OF SERVICE: 04/06/2019 SUBJECTIVE: Tasha Shen has no complaints. She is still tolerating solid foods. OBJECTIVE: VITAL SIGNS: She is afebrile, heart rate is 92, respiratory rate is 16, oximetry is 93% on room air, and blood pressure 146/63. LUNGS: Clear. HEART: Regular rhythm. ABDOMEN: Soft. LABORATORY DATA: White count is 21, hemoglobin 9.6, platelets 594, 22% bands on her peripheral smear. Sodium 142, potassium 3, chloride 112, bicarb 25, BUN 14, creatinine 0.48. IMPRESSION AND PLAN: 1. Status post laparotomy. 2. Elevated white count, which is surprising. Without large number of immature cells, I am not sure what to do with this. Chest radiograph does not show any new infiltrates. She is clinically stable. We will follow from a distance. If anything changes clinically, I will be happy to see her again. I met with her son and answered all of the family's questions. Job ID: [id number]
[2019-04-06] MEDS: HumaLOG 300 UNITS/3 ML VIAL SC PRN (19:03)
[2019-04-06] MEDS: Enoxaparin Sodium 40 MG/0.4 ML SYRINGE SC SCH (21:27)
[2019-04-06] MEDS: Gabapentin 100 MG CAP PO SCH (21:28)
[2019-04-06] MEDS: Multivit, Therapeutic 1 TAB PO SCH (21:28)
[2019-04-06] MEDS: Atorvastatin Calcium 20 MG TAB PO SCH (21:28)
[2019-04-06] MEDS: Citrucel 500 MG TAB PO SCH (21:29)
[2019-04-06] MEDS: Amlodipine 10 MG TAB PO SCH (21:29)
[2019-04-06] MEDS: Melatonin 3 MG TAB PO PRN (21:36)
[2019-04-07] MEDS: Levothyroxine Sodium 75 MCG TAB PO SCH (05:25)
[2019-04-07 06:04] LABS: #Eosinphils 0.1 thou/uL (0.0-0.7); #Lymphocytes 1.2 thou/uL (1.20-3.40); #Monocytes 0.4 thou/uL (0.11-0.59); #Neutrophils 15.6 thou/uL (1.40-6.50); %Basophils 0.1 % (0.0-1.0); %Eosinophils 0.5 % (0.0-10.0); %Lymphocytes 6.7 % (21.0-51.0); %Monocytes 2.5 % (0.0-10.0); %Neutrophils 90.3 % (42.0-75.0); Hemoglobin 8.4 g/dL (12.0-16.0); Mean Corpuscular HGB CONC 32.1 g/dL (32.0-36.0); Mean Corpuscular Volume 93.4 fL (78.0-98.0); Mean Platelet Volume 8.6 fL (7.4-10.4); Platelet Count 568 thou/uL (130-400); RBC Distribution Width 14.3 % (11.5-14.5); Red Blood Cell (RBC) Count 2.81 mill/uL (4.20-5.40); White Blood Cell (WBC) Count 17.3 thou/uL (4.8-10.8)
[2019-04-07 06:23] LABS: Anion Gap 10 mmol/L (10-20); BUN (Urea Nitrogen) 16 mg/dL (9.8-20.1); Calc. Creatinine Clearance 89 mL/min (70-130); Calcium 8.2 mg/dL (7.8-10.44); Carbon Dioxide 23 mmol/L (23-31); Chloride 110 mmol/L (98-107); Estimated GFR-MDRD Greater than 90; Glucose 118 mg/dL (80-115); Potassium 3.7 mmol/L (3.5-5.1); Sodium 139 mmol/L (136-145)
[2019-04-07] MEDS: Senokot S 8.6-50 MG TAB PO SCH ×2 (09:05→20:35)
[2019-04-07] MEDS: Aspirin 81 mg Enteric Coated Tablet PO SCH (09:05)
[2019-04-07] MEDS: metFORMIN 500 MG TAB PO SCH ×2 (09:05→17:09)
[2019-04-07] MEDS: Ramipril 5 MG CAP PO SCH (09:06)
[2019-04-07] MEDS: Metoprolol Tartrate 25 MG TAB PER TUBE SCH ×2 (09:07→20:35)
[2019-04-07] MEDS: Saccharomyces boulardii 250 MG CAP PO SCH ×2 (09:08→20:35)
[2019-04-07] MEDS: DULoxetine 30 MG CAP PO SCH (09:08)
[2019-04-07] MEDS: Potassium Citrate 10 MEQ TAB PO SCH (09:08)
--- NOTE | 2019-04-07 09:51 | PRG ---
DATE OF SERVICE: 04/07/2019 SUBJECTIVE: Tasha Shen is status post 03/28/2019, exploratory laparotomy, left colon resection, right colon resection, open abdomen, ABThera. Return to the operating room, 03/29/2019 for definitive abdominal wall closure after anastomosis, ileum to the right colon. Pathology reveals diverticular stricture, left colon and devascularized right colon perforation. The patient postoperatively has done well. Her C diff studies are now negative for antibody and toxin. She is severely weak and in fact fell out of bed last night, but is doing well. She is stable to go to rehab at any time. Antibiotics have been discontinued. OBJECTIVE: VITAL SIGNS: Temperature 97.8 degrees, pulse rate 86, and blood pressure 145/63. LUNGS: Clear to auscultation. CARDIAC: Regular rate and rhythm without murmur or gallop. ABDOMEN: Soft and nontender. Her abdominal wound looks good. Wound VAC was removed today and wound is granulating with segmental staple closure. Wound VAC should be continued. Her wound is healing without complications. LABORATORY DATA: Laboratories this morning; hemoglobin is stable at 8.4, white count down from 21 yesterday to 17.3. Her central line was removed yesterday. Her Alcocer removed 2 to 3 days ago. Urine culture is negative today. ASSESSMENT AND PLAN: 1. Severe deconditioning to rehab. 2. Open abdomen. Continue wound VAC care. 3. Colostomy functioning well. C. diff studies negative. Antibiotics have been discontinued. Severe deconditioning. Transfer to rehab, ready for transfer at any time. Job ID: [id number]
[2019-04-07] MEDS: HumaLOG 300 UNITS/3 ML VIAL SC PRN ×2 (14:55→17:09)
[2019-04-07] MEDS: Enoxaparin Sodium 40 MG/0.4 ML SYRINGE SC SCH (20:34)
[2019-04-07] MEDS: Melatonin 3 MG TAB PO PRN (20:34)
[2019-04-07] MEDS: Citrucel 500 MG TAB PO SCH (20:34)
[2019-04-07] MEDS: Atorvastatin Calcium 20 MG TAB PO SCH (20:35)
[2019-04-07] MEDS: Multivit, Therapeutic 1 TAB PO SCH (20:35)
[2019-04-07] MEDS: Gabapentin 100 MG CAP PO SCH (20:35)
[2019-04-07] MEDS: Amlodipine 10 MG TAB PO SCH (20:35)
[2019-04-08] MEDS: Acetaminophen 500 MG TAB PO PRN ×2 (00:28→21:12)
[2019-04-08] MEDS: Levothyroxine Sodium 75 MCG TAB PO SCH (04:53)
[2019-04-08] MEDS: metFORMIN 500 MG TAB PO SCH ×2 (08:41→17:56)
[2019-04-08] MEDS: Metoprolol Tartrate 25 MG TAB PER TUBE SCH ×2 (08:41→21:14)
[2019-04-08] MEDS: Ramipril 5 MG CAP PO SCH (08:42)
[2019-04-08] MEDS: Saccharomyces boulardii 250 MG CAP PO SCH ×2 (08:42→21:15)
[2019-04-08] MEDS: DULoxetine 30 MG CAP PO SCH (08:46)
[2019-04-08] MEDS: Senokot S 8.6-50 MG TAB PO SCH ×2 (08:46→21:15)
[2019-04-08] MEDS: Potassium Citrate 10 MEQ TAB PO SCH (08:47)
[2019-04-08] MEDS: Aspirin 81 mg Enteric Coated Tablet PO SCH (08:50)
--- NOTE | 2019-04-08 09:12 | PDOC.GSPN ---
Surgery Progress Note: Subj - Subjective Patient reports: pain well controlled, tolerating a regular diet (although not eating much) Surgery Progress Note: Obj - Vital signs Vital signs: Vital Signs - Most Recent Temp Pulse Resp BP Pulse Ox 97.3 F L 75 14 147/65 H 97 04/08/19 07:18 04/08/19 07:18 04/08/19 07:18 04/08/19 08:42 04/08/19 08:00 - Physical Exam General: no distress Cardiovascular: regular rate and rhythm Respiratory: clear to auscultation Abdomen: soft, appropriately tender Wound: wound vac Surgery Progress Note: Results - Labs Result Diagrams: 04/07/19 04:33 04/07/19 04:33 Lab results: Laboratory Results - last 24 hr 04/07/19 04/08/19 20:46 06:18 POC Glucose 168 H 152 H Surgery Progress Note: A/P - Problem (1) Colon perforation Current Visit: Yes Code(s): K63.1 - PERFORATION OF INTESTINE (NONTRAUMATIC) Status: Acute - Plan Plan: COMPUTER SECURITY COORDINATOR await rehab placement
[2019-04-08] MEDS: HumaLOG 300 UNITS/3 ML VIAL SC PRN (12:43)
[2019-04-08] MEDS: Ibuprofen 600 MG TAB PO PRN (13:53)
[2019-04-08] MEDS: Melatonin 3 MG TAB PO PRN (21:12)
[2019-04-08] MEDS: Multivit, Therapeutic 1 TAB PO SCH (21:14)
[2019-04-08] MEDS: Citrucel 500 MG TAB PO SCH (21:14)
[2019-04-08] MEDS: Atorvastatin Calcium 20 MG TAB PO SCH (21:14)
[2019-04-08] MEDS: Amlodipine 10 MG TAB PO SCH (21:14)
[2019-04-08] MEDS: Gabapentin 100 MG CAP PO SCH (21:14)
[2019-04-08] MEDS: Enoxaparin Sodium 40 MG/0.4 ML SYRINGE SC SCH (21:15)
[2019-04-09] MEDS: Levothyroxine Sodium 75 MCG TAB PO SCH (06:17)
[2019-04-09] MEDS: HumaLOG 300 UNITS/3 ML VIAL SC PRN ×2 (06:20→17:35)
[2019-04-09] MEDS: Senokot S 8.6-50 MG TAB PO SCH ×2 (08:27→20:25)
[2019-04-09] MEDS: Metoprolol Tartrate 25 MG TAB PER TUBE SCH ×2 (08:27→20:23)
[2019-04-09] MEDS: Aspirin 81 mg Enteric Coated Tablet PO SCH (08:27)
[2019-04-09] MEDS: Saccharomyces boulardii 250 MG CAP PO SCH ×2 (08:27→20:23)
[2019-04-09] MEDS: metFORMIN 500 MG TAB PO SCH ×2 (08:27→17:34)
[2019-04-09] MEDS: Potassium Citrate 10 MEQ TAB PO SCH (08:28)
[2019-04-09] MEDS: DULoxetine 30 MG CAP PO SCH (08:28)
[2019-04-09] MEDS: Ramipril 5 MG CAP PO SCH (08:28)
--- NOTE | 2019-04-09 09:49 | PRG ---
DATE OF SERVICE: 04/09/2019 SUBJECTIVE: Ms. Shen is doing well. Physical therapy is working with her. She is tolerating regular diet. She has no complaints. No significant abdominal pain. OBJECTIVE: VITAL SIGNS: She is afebrile. Vital signs are stable. ABDOMEN: Her abdomen is soft. It is healing well. Wound VAC. GENITOURINARY: Stool and air in her bag. ASSESSMENT: Postop colectomy, colostomy. PLAN: To rehab next week, doing well, improving daily in terms of strength. Job ID: [id number]
[2019-04-09] MEDS: Acetaminophen 500 MG TAB PO PRN ×2 (17:46→23:35)
[2019-04-09] MEDS: Amlodipine 10 MG TAB PO SCH (20:23)
[2019-04-09] MEDS: Atorvastatin Calcium 20 MG TAB PO SCH (20:23)
[2019-04-09] MEDS: Citrucel 500 MG TAB PO SCH (20:24)
[2019-04-09] MEDS: Gabapentin 100 MG CAP PO SCH (20:24)
[2019-04-09] MEDS: Multivit, Therapeutic 1 TAB PO SCH (20:25)
[2019-04-09] MEDS: Enoxaparin Sodium 40 MG/0.4 ML SYRINGE SC SCH (20:25)
[2019-04-09] MEDS: Melatonin 3 MG TAB PO PRN (20:26)
[2019-04-10] MEDS: Ibuprofen 600 MG TAB PO PRN ×2 (00:49→12:28)
[2019-04-10] MEDS: Levothyroxine Sodium 75 MCG TAB PO SCH (06:12)
[2019-04-10 08:31] LABS: #Eosinphils 0.1 thou/uL (0.0-0.7); #Lymphocytes 1.1 thou/uL (1.20-3.40); #Monocytes 0.4 thou/uL (0.11-0.59); #Neutrophils 8.8 thou/uL (1.40-6.50); %Basophils 0.5 % (0.0-1.0); %Eosinophils 0.8 % (0.0-10.0); %Lymphocytes 10.5 % (21.0-51.0); %Neutrophils 84.2 % (42.0-75.0); Mean Corpuscular HGB CONC 32.6 g/dL (32.0-36.0); Mean Corpuscular Hemoglobin 29.9 pg (27.0-31.0); Mean Corpuscular Volume 91.8 fL (78.0-98.0); Mean Platelet Volume 7.6 fL (7.4-10.4); Platelet Count 808 thou/uL (130-400); Red Blood Cell (RBC) Count 2.67 mill/uL (4.20-5.40); White Blood Cell (WBC) Count 10.5 thou/uL (4.8-10.8)
[2019-04-10] MEDS: Metoprolol Tartrate 25 MG TAB PER TUBE SCH ×2 (08:46→21:51)
[2019-04-10] MEDS: metFORMIN 500 MG TAB PO SCH ×2 (08:46→17:56)
[2019-04-10] MEDS: DULoxetine 30 MG CAP PO SCH (08:46)
[2019-04-10] MEDS: Senokot S 8.6-50 MG TAB PO SCH ×2 (08:46→21:52)
[2019-04-10] MEDS: Aspirin 81 mg Enteric Coated Tablet PO SCH (08:46)
[2019-04-10] MEDS: Ramipril 5 MG CAP PO SCH (08:46)
[2019-04-10] MEDS: Saccharomyces boulardii 250 MG CAP PO SCH ×2 (08:46→21:52)
[2019-04-10] MEDS: Potassium Citrate 10 MEQ TAB PO SCH (08:46)
[2019-04-10 08:49] LABS: Anion Gap 8 mmol/L (10-20); BUN (Urea Nitrogen) 7 mg/dL (9.8-20.1); Calc. Creatinine Clearance 85 mL/min (70-130); Calcium 8.3 mg/dL (7.8-10.44); Carbon Dioxide 27 mmol/L (23-31); Chloride 105 mmol/L (98-107); Estimated GFR-MDRD Greater than 90; Glucose 163 mg/dL (80-115); Sodium 136 mmol/L (136-145)
[2019-04-10] MEDS: Acetaminophen 500 MG TAB PO PRN (08:50)
--- NOTE | 2019-04-10 12:09 | PRG ---
DATE OF SERVICE: 04/10/2019 SUBJECTIVE: Tasha Shen is doing well today. She complains of being weak. She is working with therapy diligently. She has limited mobility. She is tolerating her diet. OBJECTIVE: VITAL SIGNS: Temperature 98.5 degrees, heart rate 87, and blood pressure 123/64. LUNGS: Clear to auscultation. CARDIAC: Regular rate and rhythm without murmur or gallop. ABDOMEN: Soft. Colostomy healthy. Bowel movements present. Wound well healed. LABORATORY DATA: White count 10 and hemoglobin 8. Basic metabolic profile is normal. On 04/05/2019, stool study, Clostridium difficile antigen negative and toxin negative. ASSESSMENT AND PLAN: The patient is doing well after 03/28/2019 and 03/29/2019 operations for left and right colectomy and ileocolonic anastomosis and colostomy. She needs rehabilitation. Overall, her wounds looked good. Wound VAC is in place and that wound is granulating, I checked it last week. The patient is ready for discharge to a rehab once accepted. All of her antibiotics have been discontinued. She is on oral medications only. She should follow up in my office in 3 to 4 weeks. Job ID: [id number]
[2019-04-10] MEDS: HumaLOG 300 UNITS/3 ML VIAL SC PRN (12:28)
[2019-04-10] MEDS: traMADol HCl 50 MG TAB PO PRN (21:50)
[2019-04-10] MEDS: Amlodipine 10 MG TAB PO SCH (21:51)
[2019-04-10] MEDS: Gabapentin 100 MG CAP PO SCH (21:51)
[2019-04-10] MEDS: Atorvastatin Calcium 20 MG TAB PO SCH (21:51)
[2019-04-10] MEDS: Citrucel 500 MG TAB PO SCH (21:51)
[2019-04-10] MEDS: Enoxaparin Sodium 40 MG/0.4 ML SYRINGE SC SCH (21:51)
[2019-04-10] MEDS: Multivit, Therapeutic 1 TAB PO SCH (21:52)
[2019-04-10] MEDS: Melatonin 3 MG TAB PO PRN (21:52)
[2019-04-10] MEDS ORDERED: HYDROcodone/Acetaminophen 5/325 mg Tablet PO PRN (23:45)
[2019-04-10] MEDS: Simethicone Chewable 80 MG TAB PO PRN (23:56)
[2019-04-10] MEDS: HYDROcodone/Acetaminophen 5/325 mg Tablet PO PRN (23:58)
[2019-04-11] MEDS: Levothyroxine Sodium 75 MCG TAB PO SCH (05:50)
[2019-04-11] MEDS: metFORMIN 500 MG TAB PO SCH ×2 (08:56→17:26)
[2019-04-11] MEDS: Saccharomyces boulardii 250 MG CAP PO SCH ×2 (08:56→20:55)
[2019-04-11] MEDS: Aspirin 81 mg Enteric Coated Tablet PO SCH (08:56)
[2019-04-11] MEDS: Ramipril 5 MG CAP PO SCH (08:56)
[2019-04-11] MEDS: Potassium Citrate 10 MEQ TAB PO SCH (08:56)
[2019-04-11] MEDS: DULoxetine 30 MG CAP PO SCH (08:57)
[2019-04-11] MEDS: Senokot S 8.6-50 MG TAB PO SCH ×2 (08:57→20:55)
[2019-04-11] MEDS: Metoprolol Tartrate 25 MG TAB PER TUBE SCH ×2 (08:57→20:55)
[2019-04-11] MEDS: Simethicone Chewable 80 MG TAB PO PRN ×2 (09:01→21:42)
--- NOTE | 2019-04-11 16:06 | PRG ---
DATE OF SERVICE: 04/11/2019 SUBJECTIVE: Tasha Shen is feeling depressed. She is on Cymbalta. She has been followed by Dr. Brown in the past. The patient has recently been informed of the of one of her relatives while she was in the hospital. The patient is deconditioned. OBJECTIVE: VITAL SIGNS: Temperature 99.2, heart rate 103, and blood pressure 138/64. GENERAL: She is having bowel movements. She is tolerating her diet, although not eating much. LUNGS: Clear to auscultation. CARDIAC: Regular rate and rhythm. No murmur or gallop. ABDOMEN: Soft and nontender. Pathology has revealed acute on chronic diverticulitis with pericolonic abscess and rupture. No malignancy. ASSESSMENT AND PLAN: Deconditioned, awaiting as she is on diabetic diet. We will resume her home medications. The patient is in need of rehab and is ready to go to rehab at any time. Awaiting [employer] insurance approval. Job ID: [id number]
[2019-04-11] MEDS: Amlodipine 10 MG TAB PO SCH (20:55)
[2019-04-11] MEDS: Gabapentin 100 MG CAP PO SCH (20:55)
[2019-04-11] MEDS: Atorvastatin Calcium 20 MG TAB PO SCH (20:55)
[2019-04-11] MEDS: Citrucel 500 MG TAB PO SCH (20:55)
[2019-04-11] MEDS: Enoxaparin Sodium 40 MG/0.4 ML SYRINGE SC SCH (20:56)
[2019-04-11] MEDS: Multivit, Therapeutic 1 TAB PO SCH (20:56)
[2019-04-11] MEDS: Melatonin 3 MG TAB PO PRN (21:42)
[2019-04-11] MEDS: HYDROcodone/Acetaminophen 5/325 mg Tablet PO PRN (21:42)
[2019-04-12] MEDS: traMADol HCl 50 MG TAB PO PRN ×3 (01:45→23:23)
[2019-04-12] MEDS: Ibuprofen 600 MG TAB PO PRN ×2 (01:52→23:23)
[2019-04-12] MEDS: Levothyroxine Sodium 75 MCG TAB PO SCH (06:39)
[2019-04-12] MEDS: HYDROcodone/Acetaminophen 5/325 mg Tablet PO PRN ×2 (10:05→20:28)
[2019-04-12] MEDS: Ramipril 5 MG CAP PO SCH (10:35)
[2019-04-12] MEDS: Saccharomyces boulardii 250 MG CAP PO SCH ×2 (10:36→20:29)
[2019-04-12] MEDS: DULoxetine 30 MG CAP PO SCH (10:36)
[2019-04-12] MEDS: Senokot S 8.6-50 MG TAB PO SCH ×2 (10:36→20:31)
[2019-04-12] MEDS: Metoprolol Tartrate 25 MG TAB PER TUBE SCH ×2 (10:37→20:30)
[2019-04-12] MEDS: Aspirin 81 mg Enteric Coated Tablet PO SCH (10:37)
[2019-04-12] MEDS: metFORMIN 500 MG TAB PO SCH ×2 (10:38→18:03)
[2019-04-12] MEDS: Potassium Citrate 10 MEQ TAB PO SCH (10:39)
[2019-04-12] MEDS: HumaLOG 300 UNITS/3 ML VIAL SC PRN (12:54)
--- NOTE | 2019-04-12 17:19 | PRG ---
DATE OF SERVICE: 04/12/2019 SUBJECTIVE: Tasha Shen is doing well today. She is tolerating her diet. She continues to be very weak. She ambulatory. She has poor balance. She has been working diligently with physical therapy. She wants to gain strength to go home. We have been waiting on [employer] insurance approval for 6 days. She was declined for rehab. I was told there was a peer to peer review, but no peer review has occurred with me and no health and safety representative [facility] has talked to me about her care and I am the only one caring for this hospitalization aside from pulmonary consultants. The patient cannot be discharged home and she is excellent candidate for rehab. OBJECTIVE: VITAL SIGNS: Temperature 98.2, heart rate 93, blood pressure 124/61. LUNGS: Clear to auscultation. CARDIAC: Regular rate and rhythm without murmur. ABDOMEN: Soft, nontender. Colostomy healthy. LABORATORY DATA: None. ASSESSMENT AND PLAN: Severe deconditioning. Needs rehab prior to bridge to go home. Anticipate that she will be independently functional. Job ID: [id number]
[2019-04-12] MEDS: Amlodipine 10 MG TAB PO SCH (20:29)
[2019-04-12] MEDS: Citrucel 500 MG TAB PO SCH (20:29)
[2019-04-12] MEDS: Simethicone Chewable 80 MG TAB PO PRN (20:30)
[2019-04-12] MEDS: Gabapentin 100 MG CAP PO SCH (20:30)
[2019-04-12] MEDS: Melatonin 3 MG TAB PO PRN (20:30)
[2019-04-12] MEDS: Enoxaparin Sodium 40 MG/0.4 ML SYRINGE SC SCH (20:31)
[2019-04-12] MEDS: Multivit, Therapeutic 1 TAB PO SCH (20:31)
[2019-04-12] MEDS: Atorvastatin Calcium 20 MG TAB PO SCH (20:31)
[2019-04-13] MEDS: Levothyroxine Sodium 75 MCG TAB PO SCH (05:39)
[2019-04-13] MEDS: Metoprolol Tartrate 25 MG TAB PER TUBE SCH ×2 (09:02→20:52)
[2019-04-13] MEDS: DULoxetine 30 MG CAP PO SCH (09:02)
[2019-04-13] MEDS: Senokot S 8.6-50 MG TAB PO SCH ×2 (09:02→20:53)
[2019-04-13] MEDS: Aspirin 81 mg Enteric Coated Tablet PO SCH (09:02)
[2019-04-13] MEDS: metFORMIN 500 MG TAB PO SCH ×2 (09:02→17:47)
[2019-04-13] MEDS: Ramipril 5 MG CAP PO SCH (09:03)
[2019-04-13] MEDS: Saccharomyces boulardii 250 MG CAP PO SCH ×2 (09:03→20:52)
[2019-04-13] MEDS: Potassium Citrate 10 MEQ TAB PO SCH (09:04)
[2019-04-13] MEDS: Simethicone Chewable 80 MG TAB PO PRN ×2 (13:34→20:53)
[2019-04-13] MEDS: HYDROcodone/Acetaminophen 5/325 mg Tablet PO PRN ×2 (13:36→20:53)
--- NOTE | 2019-04-13 16:01 | PRG ---
DATE OF SERVICE: 04/13/2019 HISTORY OF PRESENT ILLNESS: Tasha Shen is doing well today. She is tolerating her diet. She declined rehab. She is unable to safely walk independently and is not ready to go home. She would benefit from rehab. She was ready to be discharged 6-7 days ago to rehab, but it is taking this long to receive the denial from [employer]. The patient is ready to be transferred. I have made several attempts today to call the [employer] to discuss her denial, but have been unable to talk to anybody and nobody will call me back. The patient is doing well, complains of weakness. She is unable to be independent in ambulation or transfers. She complains of deconditioning and weakness. Physical Therapy reports the same. She can walk 20 feet, has to sit and rest before she walks another 20 feet. PHYSICAL EXAMINATION: VITAL SIGNS: Temperature 98.7 degrees, pulse 90, blood pressure 129/78. LUNGS: Clear to auscultation. CARDIAC: Regular rate and rhythm without murmur or gallop. ABDOMEN: Soft. Bowel sounds present. Colostomy healthy. Wound well healed. VAC in place. EXTREMITIES: Unremarkable. LABORATORY DATA: None. ASSESSMENT AND PLAN: Severe deconditioning. Needs rehab. Continue efforts at rehab. Family is talking to [facility]. Discussed self payment which I think is inappropriate. [employer] should cover her rehab as it is severely needed and indicated based on all reviews by our physical therapist and nurses and people involved. The patient participates in rehab, is able to participate in several hours a day in rehab, and would benefit greatly. Job ID: [id number]
[2019-04-13] MEDS: Enoxaparin Sodium 40 MG/0.4 ML SYRINGE SC SCH (20:51)
[2019-04-13] MEDS: Citrucel 500 MG TAB PO SCH (20:52)
[2019-04-13] MEDS: Amlodipine 10 MG TAB PO SCH (20:52)
[2019-04-13] MEDS: Gabapentin 100 MG CAP PO SCH (20:53)
[2019-04-13] MEDS: Atorvastatin Calcium 20 MG TAB PO SCH (20:53)
[2019-04-13] MEDS: Melatonin 3 MG TAB PO PRN (20:59)
[2019-04-13] MEDS: Multivit, Therapeutic 1 TAB PO SCH (21:01)
[2019-04-14] MEDS: Levothyroxine Sodium 75 MCG TAB PO SCH (05:37)
[2019-04-14] MEDS: Metoprolol Tartrate 25 MG TAB PER TUBE SCH ×2 (08:41→19:54)
[2019-04-14] MEDS: Ramipril 5 MG CAP PO SCH (08:41)
[2019-04-14] MEDS: Potassium Citrate 10 MEQ TAB PO SCH (08:42)
[2019-04-14] MEDS: metFORMIN 500 MG TAB PO SCH ×2 (08:42→18:09)
[2019-04-14] MEDS: Senokot S 8.6-50 MG TAB PO SCH ×2 (08:42→19:52)
[2019-04-14] MEDS: Aspirin 81 mg Enteric Coated Tablet PO SCH (08:42)
[2019-04-14] MEDS: DULoxetine 30 MG CAP PO SCH (08:42)
[2019-04-14] MEDS: Saccharomyces boulardii 250 MG CAP PO SCH ×2 (08:42→19:53)
[2019-04-14] MEDS: Simethicone Chewable 80 MG TAB PO PRN (12:56)
[2019-04-14] MEDS: traMADol HCl 50 MG TAB PO PRN (19:27)
[2019-04-14] MEDS: Ibuprofen 600 MG TAB PO PRN (19:27)
[2019-04-14] MEDS: Acetaminophen 500 MG TAB PO PRN (19:27)
[2019-04-14] MEDS: Citrucel 500 MG TAB PO SCH (19:52)
[2019-04-14] MEDS: Enoxaparin Sodium 40 MG/0.4 ML SYRINGE SC SCH (19:52)
[2019-04-14] MEDS: Multivit, Therapeutic 1 TAB PO SCH (19:53)
[2019-04-14] MEDS: Gabapentin 100 MG CAP PO SCH (19:53)
[2019-04-14] MEDS: Amlodipine 10 MG TAB PO SCH (19:53)
[2019-04-14] MEDS: Atorvastatin Calcium 20 MG TAB PO SCH (19:55)
[2019-04-14 20:46] VITALS: BP 136/56; TEMP 98.7
--- NOTE | 2019-04-15 03:06 | DIS ---
DATE OF ADMISSION: 03/28/2019 DATE OF DISCHARGE: 04/14/2019 Note, the discharge delayed by slow response to [facility] in evaluating her for rehab. She was ready to be discharged to rehab eight days ago, but [facility] would not review or approve her rehab and declined her and we had to make other plans. Severe deconditioning, although therapy and the [facility] evaluation delay, she improved her activity from 20 feet ambulation to 140 feet. DISCHARGE DIAGNOSES: 1. Diverticular stricture with colonic obstruction. 2. Clostridium difficile colitis. 3. Colonic perforation after endoscopic fecal transfer with feculent peritonitis. Dr. Agee on 03/28/2019, performed this fecal transfer. She is noted to have a distended abdomen with pneumoperitoneum on radiological imaging. Undergone on 03/28/2019, laparotomy, sigmoid and left colon resection, and splenic flexure mobilization. The right colon had been compromised, and there is still peritonitis and right colectomy performed. The anastomoses were not performed and colostomy not performed and open abdomen therapy undertaken and she returned to the operating room the next day for abdominal washout, ileotransverse colostomy anastomosis, and colostomy and Jaleel pouch. She is on the ventilator postoperatively and was weaned from the ventilator and seen by Pulmonary. She was treated with TPN initially and then tube feedings and then once extubated, tolerated diet after evaluated by Speech and swallowing improved. She was ready for discharge last week and needed rehab, but she could only walk 10 to 15 feet without taking a break, but in the week of delayed discharge, she progressed her therapy and did not qualify for rehab and is sent to [facility] for further therapy. Dr. Burgos will be attending to her. DISCHARGE MEDICATIONS: 1. Tylenol 1000 mg p.o. q.i.d. p.r.n. pain. 2. Motrin 400 to 600 mg p.o. q.i.d. p.r.n. pain. 3. Norvasc 10 mg at bedtime. 4. Aspirin 81 mg a day. 5. Lipitor 20 mg at bedtime. 6. Cymbalta 30 mg daily. 7. Lovenox 40 mg subcu for DVT prophylaxis. 8. Gabapentin 100 mg at bedtime. 9. Levothyroxine 75 mcg daily. 10. Metformin 500 mg b.i.d. 11. Melatonin 3 mg at bedtime, we started this hospitalization to facilitate sleeping. 12. Lopressor 12.5 mg b.i.d. 13. Multivitamins daily. 14. Protonix 40 mg a day, we started this hospitalization, but it could be discontinued at some point. 15. Altace 10 mg daily. 16. Florastor 250 mg b.i.d. scheduled. 17. Tramadol p.r.n. pain. 18. Note, I discontinued the [place] today. Colostomy care. She has a wound VAC for midline wound, which is granulating. There is some slough in the lower wound with some leftward tunneling, but overall the wound looks good and is healing. Continue wound VAC care. Follow up in my office in 2 to 3 weeks. No lifting over 25 to 30 pounds for 6 weeks. Dietary supplements to improve nutrition and wound healing. Physical therapy. Expect to be able to transfer to home. The patient was complaining of some frequency, although she has been urinating frequently in the hospital, mobilizing fluids. She had been diuresed previously. Urine culture and UA were submitted. Antibiotics not started as clinically she did not have a UTI and the family was concerned about her frequency and she stated antibiotics bothered her and she was sensitive to them. Thus, she was not started on antibiotics until culture results and this can be checked in [facility]. Job ID: [id number]
== END 2019-04-14 20:58 | DRG 907 ==
LOC: SDC 11:31 → CCU 20:20 → SURG A 04-05 19:48
PROVIDERS: ADMIT Specialist; ATTEND Specialist
PROC: 0TN70ZZ Release Left Ureter, Open Approach (ICD-10-PCS; 2019-03-28)
PROC: 0DBB0ZZ Excision of Ileum, Open Approach (ICD-10-PCS; 2019-03-28)
PROC: 0DTG0ZZ Resection of Left Large Intestine, Open Approach (ICD-10-PCS; 2019-03-28)
PROC: 0DBF0ZZ Excision of Right Large Intestine, Open Approach (ICD-10-PCS; 2019-03-28)
PROC: 3E0H8GC Introduction of Other Therapeutic Substance into Lower GI, Via Natural or Artificial Opening Endoscopic (ICD-10-PCS; 2019-03-28)
PROC: 0DJD8ZZ Inspection of Lower Intestinal Tract, Via Natural or Artificial Opening Endoscopic (ICD-10-PCS; 2019-03-28)
PROC: 30233N1 Transfusion of Nonautologous Red Blood Cells into Peripheral Vein, Percutaneous Approach (ICD-10-PCS; 2019-03-28)
PROC: 0D1B0ZL Bypass Ileum to Transverse Colon, Open Approach (ICD-10-PCS; principal; 2019-03-29)
PROC: 0D1M0Z4 Bypass Descending Colon to Cutaneous, Open Approach (ICD-10-PCS; 2019-03-29)
PROC: 5A1945Z Respiratory Ventilation, 24-96 Consecutive Hours (ICD-10-PCS; 2019-03-29)
PROC: 3E0336Z Introduction of Nutritional Substance into Peripheral Vein, Percutaneous Approach (ICD-10-PCS; 2019-03-29)
DX: K91.71 Accidental puncture and laceration of a digestive system organ or structure during a digestive system procedure (principal); K63.1 Perforation of intestine (nontraumatic); K65.8 Other peritonitis; J96.90 Respiratory failure, unspecified, unspecified whether with hypoxia or hypercapnia; A41.9 Sepsis, unspecified organism; R65.20 Severe sepsis without septic shock; E43 Unspecified severe protein-calorie malnutrition; A04.72 Enterocolitis due to Clostridium difficile, not specified as recurrent; K56.699 Other intestinal obstruction unspecified as to partial versus complete obstruction; N17.9 Acute kidney failure, unspecified; Y83.8 Other surgical procedures as the cause of abnormal reaction of the patient, or of later complication, without mention of misadventure at the time of the procedure; Y73.0 Diagnostic and monitoring gastroenterology and urology devices associated with adverse incidents; G89.29 Other chronic pain; Z79.84 Long term (current) use of oral hypoglycemic drugs; I10 Essential (primary) hypertension; E78.5 Hyperlipidemia, unspecified; M54.9 Dorsalgia, unspecified; Z68.21 Body mass index [BMI] 21.0-21.9, adult
CPT/HCPCS: 36415; 36416; 36430; 71045; 80048; 80053; 80076; 80202; 81001; 82805; 83735; 84100; 84134; 85025; 85610; 86850; 86900; 86901; 87040; 87070; 87086; 87205; 87324; 87449; 88307; 93005; 93010; 94002; 94003; 94150; 94640; A4217; C9113; J0131; J0360; J1450; J1650; J1815; J1825; J2185; J2250; J2270; J2370; J2405; J2704; J2765; J3010; J3370; J3475; J3480; J3490; J7050; J7611; J7620; P9016; P9045; P9047; S0020

== ENCOUNTER 2019-04-27 15:31 | Day surgery (SDC) | payer MEDICARE ==
[2019-04-27 15:42] VITALS: BMI 19.2
[2019-04-27] MEDS ORDERED: Sodium Bicarbonate 2.5 MEQ/5 ML VIAL ONE (16:26)
[2019-04-27] MEDS ORDERED: Acetaminophen 500 MG TAB ONE (17:57)
--- NOTE | 2019-04-27 19:43 | CT ---
CT GUIDED PERCUTANEOUS RIGHT LOWER QUADRANT ABSCESS DRAINAGE: 04/27/19 HISTORY: Patient is post abdominal surgery with fluid collection seen within the right mid abdomen and right l ower quadrant as well as in the left aspect of the pelvis. Drainage of the fluid collections was requ ested. TECHNIQUE: The procedure including the risks and complications were explained to the patient as well as the dylan ent's daughter, and informed consent was obtained. The patient was placed on the CT scan table in the supine position. Limited noncontrasted CT scan was obtained through the level of the collections with grid localizers in place. An area overlying the c ollection on the right was marked and the area was meticulously prepped and draped in the usual steri le fashion. Skin and subcutaneous tissues were infiltrated with buffered 1% lidocaine for local anest hesia. The collection was accessed utilizing micropuncture technique and a 0.018 inch guidewire was placed. Positioning of the guidewire in the collection was confirmed with CT images. The needle was then exch anged over the guidewire for a 5 [place] introducer sheath after small skin incision was made. The 0.018 guidewire was then removed, and a 0.035 inch Amplatz guidewire was placed and positioning w as again confirmed with axial CT images. The introducer catheter was exchanged over the guidewire for an 8 [place] tissue dilator followed by stew rojas an 8 [place] loop all-purpose drainage catheter. The guidewire and stiff inner cannula w ere removed. Approximately 5 mm of purulent fluid was collected and sent for labs. Axial noncontrast CT images were obtained demonstrating the catheter within the collection. Additional 35 mL of purulen t fluid was then aspirated. The catheter was secured in place utilizing 2-0 Ethilon suture material a nd placed to gravity drainage. The collection in the left aspect of the pelvis what marked at the skin surface, but area of access i s noted to be at the site of the patient's colostomy, and as a result, the collection was unable to b e safely accessed due to the adjacent left iliac bone and adjacent vessels as well as the colostomy. These findings were discussed with Dr. Hummel. IMPRESSION: 1. Technically successful CT guided percutaneous right abdominal abscess drainage. Specimen was sent for culture and sensitivity. 2. Left pelvic collection is unable to be accessed safely due to adjacent left iliac bone and th e colostomy overlying this region. As a result, drainage catheter was unable to be placed at this barney e. POS: [facility]
[2019-04-28] MEDS ORDERED: Prevnar 13-Val Conj/PF 0.5 ML SYRINGE IM ONE (15:45)
== END 2019-04-27 18:30 | disposition home or self-care (01) ==
LOC: CT 15:31
PROVIDERS: ATTEND Surgery
PROC: 0W9H30Z Drainage of Retroperitoneum with Drainage Device, Percutaneous Approach (ICD-10-PCS; principal; 2019-04-27)
DX: K68.11 Postprocedural retroperitoneal abscess (principal); Z88.5 Allergy status to narcotic agent; Z88.8 Allergy status to other drugs, medicaments and biological substances; Z79.82 Long term (current) use of aspirin; Z79.4 Long term (current) use of insulin; Z79.899 Other long term (current) drug therapy
CPT/HCPCS: 49060; 77002; 87070; 87075; 87205; C1729; 87077

== ENCOUNTER 2019-06-06 13:36 | Outpatient (CLI) | payer MEDICARE ==
[2019-06-06] MEDS ORDERED: Sodium Chloride 0.9% 15 ML NEB ONE (18:00)
== END 2019-06-06 13:37 | disposition home or self-care (01) ==
LOC: WCC 13:36
PROVIDERS: ATTEND Family Medicine
DX: Z48.815 Encounter for surgical aftercare following surgery on the digestive system (principal); Z93.3 Colostomy status
CPT/HCPCS: 36416; 99211; A4218; G0463

== ENCOUNTER 2019-06-16 08:10 | Outpatient (CLI) | payer MEDICARE ==
[2019-06-16 08:43] LABS: Estimated GFR-MDRD - POC Greater than 90
--- NOTE | 2019-06-16 09:30 | CT ---
CT abdomen pelvis with oral and IV contrast: HISTORY:Peritoneal abscess status post drainage. Continued abdominal pain Comparison: 04/26/2019 FINDINGS: The left-sided pleural effusion has resolved in the interim. The heterogeneous lesion/multiloculated fluid collection in the posterior aspect of the dome of the right lobe of the liver is slightly larger measuring 3 x 1.2 cm. The spleen, pancreas, adrenal glands and kidneys are unremarkable. Left- sided colostomy is again seen. The previously noted larger fluid collections in the abdomen have resolved. There is residual soft ti ssue density in the left lower quadrant, in the region of the previously noted abscess. There is a residual 12 mm fluid collections/abscess in the left upper abdomen just posterior to the abdominal wa ll musculature. The small bowel loops are not abnormally dilated. There are vascular calcifications without evidence of aneurysmal dilatation of the abdominal do. There are degenerative changes in the spine. IMPRESSION: 1. Liver lesion is larger. 2. Small residual abscess in the left anterior abdomen.
[2019-06-16] MEDS ORDERED: Iopamidol 370 76% 100 ML VIAL ONE (15:42)
== END 2019-06-16 08:11 | disposition home or self-care (01) ==
LOC: CT 08:10
PROVIDERS: ATTEND Internal Medicine
DX: T81.43XA Infection following a procedure, organ and space surgical site, initial encounter (principal); K76.89 Other specified diseases of liver; Z93.9 Artificial opening status, unspecified
CPT/HCPCS: 74177; 82565; Q9967